=== PATIENT | male | born 1950 | race Caucasian/White ===

== ENCOUNTER 2017-06-26 08:13 | Inpatient (IN) | payer OTHER, MEDICARE ==
[2017-06-26] MEDS ORDERED: PIPERACILLIN/TAZOBACTAM 4.5 GM VIAL IV ONE (09:37)
[2017-06-26] MEDS ORDERED: VANCOMYCIN HCL INJ 1000 MG VIAL IV ONE (09:37)
[2017-06-26] MEDS ORDERED: HYDROMORPHONE HCL INJ/PF 2 MG/ML AMPULE IV ONE ×2 (09:39→13:07)
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
[2017-06-26] MEDS: NORMAL SALINE 1000 ML 1,000 ML IV PRN ×2 (10:21→11:10)
[2017-06-26 10:22] LABS: VENOUS BLOOD BASE EXCESS 4.2 mmol/L; VENOUS BLOOD HCO3 29.4 mmol/L (20-32); VENOUS BLOOD PCO2 46.8 mmHg (35-63); VENOUS BLOOD PH 7.42 (7.30-7.42)
[2017-06-26 10:26] LABS: INTERNATIONAL RATION (INR) 1.16; PROTHROMBIN TIME 15.5 SEC (11.4-15.4)
[2017-06-26 10:28] LABS: HEMATOCRIT 30.5 % (37.9-51.0); HEMOGLOBIN 10.5 g/dL (13.5-17.0); MEAN CORPUSCULAR HEMOGLOBIN 34.8 pg (27.0-33.4); MEAN CORPUSCULAR HGB CONC 34.4 g/dL (32.0-36.0); MEAN CORPUSCULAR VOLUME 101 fl (80-97); PLATELET COUNT 174 10^3/uL (150-450); RED BLOOD COUNT 3.02 10^6/uL (4.35-5.55); RED CELL DISTRIBUTION WIDTH 13.6 % (11.5-14.0); WHITE BLOOD COUNT 6.8 10^3/uL (4.0-10.5)
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
[2017-06-26] MEDS ORDERED: CLINDAMYCIN 600 MG/D5W RTU 600 MG/50 ML RTUPB IV ONE (10:39)
[2017-06-26 10:44] LABS: ALANINE AMINOTRANSFERASE 50 U/L (21-72); ALBUMIN 3.1 g/dL (3.5-5.0); ALKALINE PHOSPHATASE 81 U/L (38-126); ANION GAP 8 (5-19); ASPARTATE AMINO TRANSFERASE 85 U/L (17-59); BILIRUBIN,DIRECT 1.4 mg/dL (0.0-0.4); BILIRUBIN,TOTAL 4.6 mg/dL (0.2-1.3); BLOOD UREA NITROGEN 15 mg/dL (7-20); CALCIUM 8.3 mg/dL (8.4-10.2); CARBON DIOXIDE 26 mmol/L (22-30); CHLORIDE 96 mmol/L (98-107); GLUCOSE 104 mg/dL (75-110); POTASSIUM 4.3 mmol/L (3.6-5.0); SODIUM 130.3 mmol/L (137-145)
[2017-06-26 10:53] LABS: ABSOLUTE MONOCYTES # (MANUAL) 0.8 10^3/uL (0.1-1.4); ABSOLUTE NEUTROPHILS# (MANUAL) 4.9 10^3/uL (1.7-8.2); BAND NEUTROPHILS % (MANUAL) 1 % (3-5); BASOPHILS % (MANUAL) 1 % (0-2); EOSINOPHILS % (MANUAL) 0 % (0-6); LYMPHOCYTES % (MANUAL) 15 % (13-45); METAMYELOCYTES % (MANUAL) 2 % (0); MONOCYTES % (MANUAL) 12 % (3-13); SEGMENTED NEUTROPHILS % (MAN) 69 % (42-78); TOTAL CELLS COUNTED 100
[2017-06-26 10:54] LABS: OVALOCYTES SLIGHT; PLATELET COMMENT ADEQUATE; POIKILOCYTOSIS SLIGHT; POLYCHROMASIA SLIGHT
--- NOTE | 2017-06-26 11:18 | RADIOLOGY REPORT (SQ) ---
EXAM DESCRIPTION: CHEST PA/LAT COMPLETED DATE/TIME: 06/26/2017 10:59 am REASON FOR STUDY: post op infection COMPARISON: Chest films 09/24/2009, 12/19/2013, 02/10/2015 EXAM PARAMETERS: NUMBER OF VIEWS: two views TECHNIQUE: Digital Frontal and Lateral radiographic views of the chest acquired. RADIATION DOSE: NA LIMITATIONS: none FINDINGS: LUNGS AND PLEURA: No opacities, masses or pneumothorax. No pleural effusion. MEDIASTINUM AND HILAR STRUCTURES: No masses or contour abnormalities. HEART AND VASCULAR STRUCTURES: Heart normal size. No evidence for failure. BONES: No acute findings. HARDWARE: None in the chest. OTHER: No other significant finding. IMPRESSION: NO SIGNIFICANT RADIOGRAPHIC FINDING IN THE CHEST. TECHNICAL DOCUMENTATION: JOB ID: [id number] [employer]- All Rights Reserved
--- NOTE | 2017-06-26 11:20 | RADIOLOGY REPORT (SQ) ---
EXAM DESCRIPTION: KNEE LEFT 2 VIEWS COMPLETED DATE/TIME: 06/26/2017 10:59 am REASON FOR STUDY: left knee redness COMPARISON: None. NUMBER OF VIEWS: Two views. TECHNIQUE: AP and lateral radiographic images acquired of the left knee. LIMITATIONS: None. FINDINGS: MINERALIZATION: Normal. BONES: Post total knee replacement. Hardware in good alignment. No fracture. JOINT: Huge suprapatellar knee joint effusion with air bubbles worrisome for infection. SOFT TISSUES: There is prepatellar bursa fluid, with a large prepatellar effusion. Diffuse subcutane ous edema around the left knee OTHER: No other significant finding. IMPRESSION: Large suprapatellar knee joint effusion and large prepatellar bursa collection worrisome for infection. Post left total knee replacement, hardware in good alignment TECHNICAL DOCUMENTATION: JOB ID: [id number] [employer]- All Rights Reserved
[2017-06-26 11:42] LABS: APPEARANCE,URINE SLIGHTLY-CLOUDY; BILIRUBIN,URINE NEGATIVE (NEGATIVE); COLOR,URINE AMBER; GLUCOSE, URINE NEGATIVE (NEGATIVE); KETONES,URINE NEGATIVE (NEGATIVE); LEUKOCYTE ESTERASE,URINE NEGATIVE (NEGATIVE); NITRITE,URINE NEGATIVE (NEGATIVE); PROTEIN,URINE NEGATIVE (NEGATIVE); URINE SPECIFIC GRAVITY 1.029
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
--- NOTE | 2017-06-26 14:42 | RADIOLOGY REPORT (SQ) ---
EXAM DESCRIPTION: U/S ABDOMEN LIMITED W/O DOP COMPLETED DATE/TIME: 06/26/2017 2:13 pm REASON FOR STUDY: elevated LFTs COMPARISON: None. TECHNIQUE: Dynamic and static grayscale images acquired of the abdomen and recorded on PACS. Additio nal selected color Doppler and spectral images recorded. LIMITATIONS: Study was limited somewhat due to overlying bowel gas. FINDINGS: PANCREAS: The pancreas was incompletely visualized due to overlying bowel gas. Visualized portions of the pancreatic head showed no pancreatic masses. LIVER: There is solid-appearing mass in the right lobe of the liver with heterogeneous echogenicity m easuring 2.9 x 3.6 x 3.[address] cm in diameters. Abdominal CT scan with IV contrast may be of value for fur ther evaluation LIVER VASCULATURE: Normal blood flow is identified in the portal vein. GALLBLADDER: No stones. Normal wall thickness. No pericholecystic fluid. ULTRASOUND-DETECTED VINES'S SIGN: Negative. INTRAHEPATIC DUCTS AND COMMON DUCT: No dilated intrahepatic bile ducts are identified. The common bi le duct is at the upper limits of normal in size. INFERIOR VENA CAVA: Normal flow. AORTA: Abdominal aorta was incompletely visualized due to overlying bowel gas. Visualized portions o f the abdominal aorta showed no abdominal aortic aneurysm RIGHT KIDNEY: 10.6 cm in length P. Normal echogenicity. A hypoechoic mass is identified measuring 2 .9 x 2.5 x 3.2 cm in diameters. Again CT may be of value for further evaluation. No hydronephrosis. No calcifications. PERITONEAL AND RIGHT PLEURAL SPACE: No ascites or effusions. OTHER: No other significant findings. IMPRESSION: Hepatic and renal mass lesions as noted above. Abdominal CT scan with IV contrast may b e of value for further evaluation. Other findings as noted above TECHNICAL DOCUMENTATION: JOB ID: [id number] [employer]- All Rights Reserved
[2017-06-26] MEDS ORDERED: ONDANSETRON 4 MG TAB.RAPDIS SL PRN (15:05)
[2017-06-26] MEDS ORDERED: TRANEXAMIC ACID INJ/PF 1,000 MG/10 ML SDV IV PRN (15:05)
[2017-06-26] MEDS: RINGERS SOLUTION,LACTATED 1,000 ML IV PRN (15:29)
[2017-06-26 15:57] LABS: HEMATOCRIT 27.2 % (37.9-51.0); HEMOGLOBIN 9.4 g/dL (13.5-17.0); MEAN CORPUSCULAR HEMOGLOBIN 34.6 pg (27.0-33.4); MEAN CORPUSCULAR HGB CONC 34.5 g/dL (32.0-36.0); MEAN CORPUSCULAR VOLUME 101 fl (80-97); PLATELET COUNT 140 10^3/uL (150-450); RED CELL DISTRIBUTION WIDTH 13.2 % (11.5-14.0)
[2017-06-26 16:10] LABS: INTERNATIONAL RATION (INR) 1.21; PROTHROMBIN TIME 16.1 SEC (11.4-15.4)
[2017-06-26 16:11] LABS: PARTIAL THROMBOPLASTIN TIME 37.5 SEC (23.5-35.8)
[2017-06-26 16:20] LABS: ANION GAP 5 (5-19); BLOOD UREA NITROGEN 13 mg/dL (7-20); C-REACTIVE PROTEIN 27.8 mg/L (<10.0); CALCIUM 7.8 mg/dL (8.4-10.2); CARBON DIOXIDE 28 mmol/L (22-30); CHLORIDE 99 mmol/L (98-107); GLUCOSE 92 mg/dL (75-110); POTASSIUM 3.8 mmol/L (3.6-5.0); SODIUM 132.4 mmol/L (137-145)
[2017-06-26 16:33] LABS: ERYTHROCYTE SEDIMENTATION RATE 72 mm/hr (0-20)
--- NOTE | 2017-06-26 16:33 | XCELERA REPORT ---
[address] [address] Lower Extremity Venous Evaluation Name: BOUCHRA COUGHLIN Age: 67 yrs Gender: Male : 1950 Patient Status: Inpatient Patient Location: [place] [address]^A Study Date: 06/26/2017 11:43 AM Procedure: Color flow and duplex imaging of the veins of the left lower extremity as well as the right Common Femoral vein. Reason For Study: left lower extremity post op Ordering Physician: KELLY BOBBY Performed By: Sonali Cantor Right Sided Venous Evaluation The right common femoral vein is fully compressible. Spontaneous and phasic flow is present in the right common femoral vein. Left Sided Venous Evaluation Normal vessel filling wall to wall, compression and augmentation as well as Colour flow down to the infrageniculate veins. Interpretation Summary No duplex evidence of DVT or obstruction in the left lower extremity nor in the right Common Femoral vein. : KELLY BOBBY > Mainor Powell
[2017-06-26] MEDS: RIFAMPIN 300 MG CAPSULE PO SCH (18:03)
[2017-06-26] MEDS: OXYCODONE HCL IR 5 MG TABLET PO PRN (18:03)
[2017-06-26] MEDS: VANCOMYCIN HCL 1,250 MG in DEXTROSE 5%-WATER 250 ML IV SCH (18:03)
--- NOTE | 2017-06-26 22:38 | EKG REPORT ---
SEVERITY:- NORMAL ECG - SINUS RHYTHM : Confirmed by: Janna Arrington 26-Jun-2017 22:38:29
[2017-06-27] MEDS: RINGERS SOLUTION,LACTATED 1,000 ML IV PRN ×2 (00:58→16:26)
[2017-06-27] MEDS: VANCOMYCIN HCL 1,250 MG in DEXTROSE 5%-WATER 250 ML IV SCH ×3 (01:31→18:02)
[2017-06-27] MEDS: RIFAMPIN 300 MG CAPSULE PO SCH ×3 (05:38→22:20)
[2017-06-27] MEDS ORDERED: POLYMYXIN B SULFATE INJ 500000 UNIT VIAL ONE (07:36)
[2017-06-27] MEDS ORDERED: THROMBIN (BOVINE) TOPICAL 20000 UNIT VIAL ONE (07:36)
[2017-06-27] MEDS ORDERED: THROMBIN (BOVINE) 5000 UNIT EPITAXIS KIT ONE (07:36)
[2017-06-27] MEDS ORDERED: BACITRACIN INJ 50,000 UNIT VIAL ONE (07:37)
[2017-06-27] MEDS ORDERED: BUPIVACAINE INJ/PF LIPOSOME/PF 266 MG/20 ML SDV ONE (07:37)
[2017-06-27] MEDS ORDERED: LIDOCAINE 2% INJ-PF (20 MG/ML) 10 ML AMPUL ONE (08:24)
[2017-06-27] MEDS ORDERED: MIDAZOLAM 2 MG/2 ML INJ ONE (08:24)
[2017-06-27] MEDS ORDERED: PROPOFOL INJ 200 MG/20 ML VIAL IV ONE (08:24)
[2017-06-27] MEDS ORDERED: ONDANSETRON HCL INJ/PF 4 MG/2 ML SDV ONE (08:24)
[2017-06-27] MEDS ORDERED: ACETAMINOPHEN 100 ML IV ONE (08:24)
[2017-06-27] MEDS ORDERED: FENTANYL CITRATE INJ/PF 100 MCG/2 ML AMPUL ONE (08:24)
[2017-06-27] MEDS ORDERED: TRANEXAMIC ACID INJ/PF 1,000 MG/10 ML SDV IV ONE ×3 (08:37→14:00)
[2017-06-27] MEDS ORDERED: MORPHINE SULFATE 10 MG/ML INJ IV PRN (09:15)
[2017-06-27] MEDS ORDERED: FENTANYL CITRATE INJ/PF 100 MCG/2 ML AMPUL IV PRN ×3 (09:15)
[2017-06-27] MEDS ORDERED: ONDANSETRON HCL INJ/PF 4 MG/2 ML SDV IV PRN ×3 (09:15→12:19)
[2017-06-27] MEDS ORDERED: OXYCODONE-ACETAMINOPHEN 5-325 MG TABLET PO PRN ×2 (09:15)
[2017-06-27] MEDS ORDERED: PROMETHAZINE HCL INJ 25 MG/1 ML VIAL IV PRN ×2 (09:15)
[2017-06-27] MEDS ORDERED: DIPHENHYDRAMINE HCL 50 MG/ML VIAL IV PRN (09:15)
[2017-06-27] MEDS ORDERED: MEPERIDINE HCL/PF INJ 25 MG/1 ML DISP.SYRIN IV PRN (09:15)
--- NOTE | 2017-06-27 10:01 | Operative Report ---
Operative Report DATE OF SURGERY: 06/27/17 PREOPERATIVE DIAGNOSIS: Infected left total knee arthroplasty OPERATION: Irrigation debridement left knee exchange of polyethylene tibial component SURGEON: ANN KUHN ANESTHESIA: Spinal TISSUE REMOVED OR ALTERED: Cultures 2 to microbiology. implant to CSS ESTIMATED BLOOD LOSS: 100 PROCEDURE: With the patient supine position the operative table left lower extremities prepped and draped in a sterile fashion. The previous incision was median parapatellar and closed with what appears to be a black nylon suture. These are removed uneventfully and the superficial layer opened. Cultures are taken at the superficial level of a large hematoma. The subsequent retinacular layers also median parapatellar approach and appears to be closed with a combination of PDS and Ethibond sutures. These are removed meticulously. The underlying knee joint is cultured. It is then irrigated with 3 L normal saline standard bacitracin. The knee is flexed and the tibial polyethylene is removed. The wound is again irrigated with 3 L normal saline containing bacitracin and meticulous debridement of all synovial tissue. Lastly a new 12 x 5 TJO tibial spacer was inserted and secured with a screw. The wound was again debrided and irrigated with 3 L normal saline containing bacitracin. The wound is then closed using PDS on the retinacular layer and Prolene on the superficial layer. A sterile compressive dressing is applied and the patient's return to the PACU in satisfactory condition.
[2017-06-27] MEDS ORDERED: OXYCODONE HCL IR 5 MG TABLET PO PRN ×2 (10:06→12:18)
[2017-06-27] MEDS: OXYCODONE HCL IR 5 MG TABLET PO PRN (12:06)
[2017-06-27] MEDS ORDERED: RINGERS SOLUTION,LACTATED 1,000 ML IV PRN (12:14)
[2017-06-27] MEDS ORDERED: SIMETHICONE 80 MG TAB.CHEW PO PRN (12:52)
--- NOTE | 2017-06-27 14:41 | RADIOLOGY REPORT (SQ) ---
EXAM DESCRIPTION: PICC INSERTION; FLUORO/CV PLACEMENT; U/S GUIDE FOR VASCULAR ACCESS COMPLETED DATE/TIME: 06/27/2017 2:17 pm REASON FOR STUDY: IV MEDS; IV ACCESS COMPARISON: Two-view chest 06/26/2017 FLUOROSCOPY TIME: 29 seconds AP digital chest radiograph and 1 ultrasound images saved to PACS. TECHNIQUE: Fluoroscopic and ultrasound guided PICC placement. LIMITATIONS: None. PROCEDURE: After written consent and assessment were obtained, the patient was brought into the fluo roscopy room and place supine on the table. Ultrasound was used on the patient's left arm for PICC a ccess. The left arm was prepped and draped in a sterile fashion along with the ultrasound probe. The entry site was anesthetized with 1% lidocaine. A 21 gauge 7 cm needle was advanced through the skin a nd into the basilic vein under live ultrasound guidance. An ultrasound image was saved to PACS confi rming access site. A .018 guide wire was then inserted through the needle and into the venous system . The needle was the removed and an 11 blade scalpel was used to make a 1cm skin incision. A 5 fr pe el-away sheath was advanced over the wire and into the venous system. A measurement was then made usi ng the existing wire and live fluoroscopic guidance. The wire was then removed and the trimmed. The P ICC was advanced through the peel-away sheath and into the venous system. The peel-away sheath was re moved and the catheter was adhered to the patients arm with a stat lock. The catheter was then aspira toribio and flushed and a sterile bandage was placed over the access site. A fluoroscopic spot image was saved to PACS confirming the catheter tip within the superior vena cava. IMPRESSION: SUCCESSFUL PLACEMENT OF A 5 FR DUAL LUMEN 39 CM PICC IN THE LEFT BASILIC VEIN. COMMENT: Patient medication list reviewed: Yes- Quality ID# [id number]:Eligible professional attests to doc umenting in the medical record they obtained, updated, or reviewed the patient's current medications. . Quality ID 145: Final reports for procedures using fluoroscopy that document radiation exposure cyndie jesus, or exposure time and number of fluorographic images (if radiation exposure indices are not avail able) Quality ID #76: The patient was prepped and draped using maximum sterile barrier technique including cap, mask, sterile gown, sterile gloves, a large sterile sheet, hand hygiene, and 2% Chlorhexidine fo r cutaneous antisepsis. When ultrasound is used, sterile ultrasound techniques are followed requiring sterile gel and sterile probes. TECHNICAL DOCUMENTATION: JOB ID: [id number] [employer]- All Rights Reserved
[2017-06-27] MEDS ORDERED: HYDROMORPHONE HCL INJ/PF 2 MG/ML AMPULE ONE (15:02)
[2017-06-27] MEDS ORDERED: RIFAMPIN 300 MG CAPSULE PO SCH (18:00)
[2017-06-27 18:12] LABS: VANCOMYCIN,TROUGH 11.6 ug/mL (5.0-20.0)
[2017-06-27] MEDS: HYDROMORPHONE HCL INJ/PF 2 MG/ML AMPULE IV PRN (20:22)
[2017-06-27] MEDS ORDERED: VANCOMYCIN HCL 1,000 MG in DEXTROSE 5%-WATER 250 ML IV SCH (22:00)
[2017-06-27] MEDS: NORMAL SALINE 10 ML SDV (SCHEDULED) IV SCH (22:21)
[2017-06-28] MEDS: VANCOMYCIN HCL 1,250 MG in DEXTROSE 5%-WATER 250 ML IV SCH ×3 (01:13→17:04)
[2017-06-28] MEDS: HYDROMORPHONE HCL INJ/PF 2 MG/ML AMPULE IV PRN ×5 (01:13→23:56)
[2017-06-28] MEDS: RIFAMPIN 300 MG CAPSULE PO SCH ×3 (06:46→22:29)
[2017-06-28 07:24] LABS: HEMATOCRIT 27.4 % (37.9-51.0); HEMOGLOBIN 9.4 g/dL (13.5-17.0); MEAN CORPUSCULAR HEMOGLOBIN 34.7 pg (27.0-33.4); MEAN CORPUSCULAR HGB CONC 34.4 g/dL (32.0-36.0); MEAN CORPUSCULAR VOLUME 101 fl (80-97); PLATELET COUNT 156 10^3/uL (150-450); RED BLOOD COUNT 2.72 10^6/uL (4.35-5.55); WHITE BLOOD COUNT 6.2 10^3/uL (4.0-10.5)
[2017-06-28 07:41] LABS: ANION GAP 7 (5-19); BLOOD UREA NITROGEN 7 mg/dL (7-20); CALCIUM 8.2 mg/dL (8.4-10.2); CARBON DIOXIDE 27 mmol/L (22-30); CHLORIDE 98 mmol/L (98-107); GLUCOSE 106 mg/dL (75-110); POTASSIUM 4.3 mmol/L (3.6-5.0)
--- NOTE | 2017-06-28 07:42 | PDOC PROGRESS REPORT ---
Subjective Progress Note for:: 06/28/17 Reason For Visit: INFECTED OF PROSTHETIC KNEE JOINT,CELLULITIS 67-year-old white male postop day 8 from left knee arthroplasty at the [facility] and postop day 1 from an I&D for surgical site infection. Patient complaining of thigh pain which is similar to what he had immediately postop after the knee arthroplasty. Physical Exam Vital Signs: Temp Pulse Resp BP Pulse Ox 37.1 C 75 18 118/59 L 97 06/28/17 04:22 06/28/17 04:22 06/28/17 04:22 06/28/17 04:22 06/28/17 00:25 Intake & Output 06/27/17 06/28/17 06/29/17 06:59 06:59 06:59 Intake Total 9260 Output Total 275 7600 Balance -275 1660 Weight 97.6 kg General appearance: PRESENT: mild distress Head exam: PRESENT: normocephalic Respiratory exam: PRESENT: unlabored Cardiovascular exam: PRESENT: RRR Vascular exam: PRESENT: normal capillary refill GI/Abdominal exam: PRESENT: soft Rectal exam: PRESENT: deferred Extremities exam: PRESENT: other - Left lower extremity immobilized in a compressive wrap. From what can be seen of the underlying OpSite dressing is clean dry and intact. There is some swelling about the foot. The amount of erythema and induration in the lower extremities dramatically improve compared to his initial presentation. The femoral nerve block sites which have been weeping serous fluid are now dry. Neurological exam: PRESENT: alert, awake, oriented to person, oriented to place , oriented to time, oriented to situation. ABSENT: motor sensory deficit Psychiatric exam: PRESENT: appropriate affect, normal mood. ABSENT: homicidal ideation, suicidal ideation Skin exam: PRESENT: dry, intact, warm. ABSENT: cyanosis, rash Results Laboratory Results: 06/28/17 06:52 06/27/17 06/28/17 17:43 06:52 WBC 6.2 RBC 2.72 L Hgb 9.4 L Hct 27.4 L MCV 101 H MCH 34.7 H MCHC 34.4 RDW 14.0 Plt Count 156 Creatinine 0.54 Est GFR ( Amer) > 60 Est GFR (Non-Af Amer) > 60 Impressions: Chest X-Ray 06/26/17 09:38 IMPRESSION: NO SIGNIFICANT RADIOGRAPHIC FINDING IN THE CHEST. Knee X-Ray 06/26/17 10:28 IMPRESSION: Large suprapatellar knee joint effusion and large prepatellar bursa collection worrisome for infection. Post left total knee replacement, hardware in good alignment Abdomen Ultrasound 06/26/17 11:46 IMPRESSION: Hepatic and renal mass lesions as noted above. Abdominal CT scan with IV contrast may be of value for further evaluation. Other findings as noted above Guidance Fluoroscopy 06/27/17 00:00 IMPRESSION: SUCCESSFUL PLACEMENT OF A 5 FR DUAL LUMEN 39 CM PICC IN THE LEFT BASILIC VEIN. Interventional Vascular Procedure 06/27/17 00:00 IMPRESSION: SUCCESSFUL PLACEMENT OF A 5 FR DUAL LUMEN 39 CM PICC IN THE LEFT BASILIC VEIN. PICC Line Insertion 06/27/17 00:00 IMPRESSION: SUCCESSFUL PLACEMENT OF A 5 FR DUAL LUMEN 39 CM PICC IN THE LEFT BASILIC VEIN. Status: Imported from PACS Assessment & Plan - Diagnosis (1) Infection of prosthetic knee joint Qualifiers: Encounter type: initial encounter Qualified Code(s): T84.59XA - Infection and inflammatory reaction due to other internal joint prosthesis, initial encounter; Z96.659 - Presence of unspecified artificial knee joint; Z96.659 - Presence of unspecified artificial knee joint Is this a current diagnosis for this admission?: Yes Plan: 67-year-old white male postop day 1 status post I&D of the left knee arthroplasty complicated by surgical site infection. Cultures remain no growth so far. Clinical improvement is evident. Anticipate the need for 6 weeks of IV antibiotic therapy. At this point unless cultures are positive we will continue with rifampin and vancomycin. Social work is consulted for arranging for ongoing antibiotic administration. - Time Time Spent with patient: 15-24 minutes Anticipated discharge: Home with Homehealth Within: within 24 hours
[2017-06-28] MEDS: NORMAL SALINE 10 ML SDV (SCHEDULED) IV SCH ×2 (09:33→22:30)
[2017-06-28] MEDS ORDERED: VANCOMYCIN HCL 1,000 MG in DEXTROSE 5%-WATER 250 ML IV SCH (10:00)
[2017-06-28] MEDS: RINGERS SOLUTION,LACTATED 1,000 ML IV PRN (20:22)
[2017-06-29] MEDS: VANCOMYCIN HCL 1,250 MG in DEXTROSE 5%-WATER 250 ML IV SCH ×3 (02:21→17:24)
[2017-06-29] MEDS: RINGERS SOLUTION,LACTATED 1,000 ML IV PRN ×3 (04:37→22:37)
--- NOTE | 2017-06-29 08:33 | PDOC PROGRESS REPORT ---
Subjective Progress Note for:: 06/29/17 Reason For Visit: INFECTED OF PROSTHETIC KNEE JOINT,CELLULITIS 67-year-old white male postop day 2 from I&D of a left periprosthetic knee infection. Patient complaining of constipation. Physical Exam Vital Signs: Temp Pulse Resp BP Pulse Ox 36.8 C 73 16 115/66 98 06/29/17 07:32 06/29/17 07:32 06/29/17 07:32 06/29/17 07:32 06/29/17 07:32 Intake & Output 06/28/17 06/29/17 06/30/17 06:59 06:59 06:59 Intake Total 9260 2670 1825 Output Total 7600 700 Balance 1660 1970 1825 Weight 101.9 kg General appearance: PRESENT: mild distress Head exam: PRESENT: normocephalic Respiratory exam: PRESENT: unlabored Cardiovascular exam: PRESENT: RRR Pulses: PRESENT: +1 pedal pulses bilateral Vascular exam: PRESENT: normal capillary refill GI/Abdominal exam: PRESENT: soft Rectal exam: PRESENT: deferred Extremities exam: PRESENT: other - Left lower extremity dressing clean dry and intact. Considerable reduction in the induration and erythema about the left lower extremity. Femoral nerve block injection sites are dry. Psychiatric exam: PRESENT: agitated, appropriate affect, normal mood. ABSENT: homicidal ideation, suicidal ideation Skin exam: PRESENT: dry, intact, warm. ABSENT: cyanosis, rash Results Laboratory Results: 06/28/17 06:52 06/28/17 06:52 Impressions: Chest X-Ray 06/26/17 09:38 IMPRESSION: NO SIGNIFICANT RADIOGRAPHIC FINDING IN THE CHEST. Knee X-Ray 06/26/17 10:28 IMPRESSION: Large suprapatellar knee joint effusion and large prepatellar bursa collection worrisome for infection. Post left total knee replacement, hardware in good alignment Abdomen Ultrasound 06/26/17 11:46 IMPRESSION: Hepatic and renal mass lesions as noted above. Abdominal CT scan with IV contrast may be of value for further evaluation. Other findings as noted above Guidance Fluoroscopy 06/27/17 00:00 IMPRESSION: SUCCESSFUL PLACEMENT OF A 5 FR DUAL LUMEN 39 CM PICC IN THE LEFT BASILIC VEIN. Interventional Vascular Procedure 06/27/17 00:00 IMPRESSION: SUCCESSFUL PLACEMENT OF A 5 FR DUAL LUMEN 39 CM PICC IN THE LEFT BASILIC VEIN. PICC Line Insertion 06/27/17 00:00 IMPRESSION: SUCCESSFUL PLACEMENT OF A 5 FR DUAL LUMEN 39 CM PICC IN THE LEFT BASILIC VEIN. Status: Imported from PACS Assessment & Plan - Diagnosis (1) Infection of prosthetic knee joint Qualifiers: Encounter type: initial encounter Qualified Code(s): T84.59XA - Infection and inflammatory reaction due to other internal joint prosthesis, initial encounter; Z96.659 - Presence of unspecified artificial knee joint; Z96.659 - Presence of unspecified artificial knee joint Is this a current diagnosis for this admission?: Yes Plan: Mobilization with physical therapy. Patient can be discharged home when arrangements have been made for ongoing IV antibiotic therapy with home health nursing. (2) Constipation Is this a current diagnosis for this admission?: Yes Plan: Patient was on Colace preop. Colace is been reordered as well as Dulcolax suppositories and mag citrate if needed. - Time Time Spent with patient: 15-24 minutes Anticipated discharge: Home with Homehealth Within: within 24 hours
[2017-06-29] MEDS ORDERED: HYDROMORPHONE HCL INJ/PF 2 MG/ML AMPULE ONE (08:35)
[2017-06-29] MEDS: NORMAL SALINE 10 ML SDV (AFTER EACH USE) IV PRN (08:42)
[2017-06-29] MEDS: HYDROMORPHONE HCL INJ/PF 2 MG/ML AMPULE IV PRN ×2 (10:52→13:30)
[2017-06-29] MEDS: NORMAL SALINE 10 ML SDV (SCHEDULED) IV SCH ×2 (10:52→22:36)
[2017-06-29] MEDS: RIFAMPIN 300 MG CAPSULE PO SCH (11:02)
[2017-06-29] MEDS ORDERED: HYDROMORPHONE HCL INJ/PF 2 MG/ML AMPULE IV PRN (13:51)
[2017-06-29] MEDS ORDERED: BISACODYL 10 MG SUPP.RECT PR PRN (13:53)
[2017-06-29] MEDS ORDERED: MAGNESIUM CITRATE 296 ML BOTTLE PO PRN (13:54)
[2017-06-29] MEDS ORDERED: IBUPROFEN 800 MG in NORMAL SALINE 250 ML IV SCH (14:00)
[2017-06-29] MEDS: DOCUSATE SODIUM 100 MG CAPSULE PO SCH (17:23)
[2017-06-29] MEDS: OXYCODONE HCL IR 5 MG TABLET PO PRN (17:28)
[2017-06-30] MEDS: RIFAMPIN 300 MG CAPSULE PO SCH ×3 (00:12→21:52)
[2017-06-30] MEDS: VANCOMYCIN HCL 1,250 MG in DEXTROSE 5%-WATER 250 ML IV SCH ×3 (01:32→18:57)
[2017-06-30] MEDS: RINGERS SOLUTION,LACTATED 1,000 ML IV PRN (06:54)
--- NOTE | 2017-06-30 06:57 | PDOC DISCHARGE SUMMARY ---
General - Admit/Disc Date/PCP Admission Date/Primary Care Provider: 06/26/17 11:45 JADE GUTIERREZ, Discharge Date: 06/30/17 - Discharge Diagnosis (1) Infection of prosthetic knee joint Is this a current diagnosis for this admission?: Yes - Additional Information Resuscitation Status: Full Code Discharge Diet: As Tolerated, Regular Discharge Activity: Activity As Tolerated, No Driving, No tub bath, Walk Frequently Home Medications: Duloxetine HCl [Cymbalta 20 mg Capsule.dr] 20 mg PO QHS 06/26/17 Mv-Min/FA/Vit K/Lycop/Lut/Zeax [Ocuvite Eye + Multi Tablet] 1 tab PO BIDBS 06/26 Omeprazole 40 mg PO DAILY 06/26/17 Polyvinyl Alcohol [Liquitears 1.4% Ophth Soln 15 ml] 1 drop OU BID 06/26/17 History of Present Illness History of Present Illness: BOUCHRA COUGHLIN is a 67 year old male roughly 1 week status post total left knee arthroplasty completed at [facility]. He presented to the emergency department with increased swelling pain discoloration of the left knee as well as fever sweats and chills. As there he was diagnosed with a left knee prosthetic joint infection. He was then admitted for irrigation and drainage of left knee arthroplasty as well as polyethylene exchange. Hospital Course Hospital Course: Patient was admitted to the hospital through the emergency department to the OR where he underwent irrigation and drainage of total left knee arthroplasty and polyethylene component exchange. He underwent uncomplicated procedure in which wound cultures were taken. He was then taken to PACU in satisfactory condition. He was transferred up to the surgical floor where he was seen by physical therapy as well as nursing staff and Dr. Dye for pain control. He made great progress of physical therapy ambulating up to 250 feet independently. He had some issues with scrotal swelling in which a urinary catheter was placed. That issue has resolved and urinary catheter has been removed. He could not urinate independently. He will be discharged to home today with home health nursing, wheeled walker, bedside commode and home physical therapy. Physical Exam Vital Signs: Temp Pulse Resp BP Pulse Ox 37.1 C 81 17 121/62 95 06/30/17 03:52 06/30/17 03:52 06/30/17 03:52 06/30/17 03:52 06/30/17 03:52 Intake & Output 06/28/17 06/29/17 06/30/17 06:59 06:59 06:59 Intake Total 9260 2670 3500 Output Total 7600 700 400 Balance 1660 1970 3100 Weight 101.9 kg General appearance: PRESENT: no acute distress, well-developed, well-nourished Head exam: PRESENT: atraumatic, normocephalic Respiratory exam: PRESENT: unlabored Pulses: PRESENT: normal dorsalis pedis pul, +2 pedal pulses bilateral Vascular exam: PRESENT: normal capillary refill Additional comments: Urinary catheter has been removed and squared for a total edema is much decreased. Patient can now urinate independently. Additional comments: Patient sitting upright in hospital bed with bilateral lower extremities in full extension. Left lower extremity compression dressing is in place and is clean dry and intact. Underlying honeycomb dressings appear saturated with elisabeth blood. These are both left in place. He has brisk capillary refill to toes on bilateral lower extremities and minimal pedal edema. Sensorimotor functions are intact leg lengths are equal and distal neurovascular exam is intact. Additionally PICC line is placed on left upper extremity for IV infusion therapy for the next 6 weeks. This will be left in place. Musculoskeletal exam: PRESENT: ambulatory Additional comments: Patient has made great progress of physical therapy ambulating up to 250 feet independently. He will continue to work with home physical therapy to improve strength range of motion of left lower extremity and further ambulation. Neurological exam: PRESENT: alert, awake, oriented to person, oriented to place , oriented to time, oriented to situation, CN II-XII grossly intact. ABSENT: motor sensory deficit Psychiatric exam: PRESENT: appropriate affect, normal mood. ABSENT: homicidal ideation, suicidal ideation Skin exam: PRESENT: dry, intact, warm. ABSENT: cyanosis, rash Results Laboratory Results: 06/28/17 06:52 06/28/17 06:52 Impressions: Chest X-Ray 06/26/17 09:38 IMPRESSION: NO SIGNIFICANT RADIOGRAPHIC FINDING IN THE CHEST. Knee X-Ray 06/26/17 10:28 IMPRESSION: Large suprapatellar knee joint effusion and large prepatellar bursa collection worrisome for infection. Post left total knee replacement, hardware in good alignment Abdomen Ultrasound 06/26/17 11:46 IMPRESSION: Hepatic and renal mass lesions as noted above. Abdominal CT scan with IV contrast may be of value for further evaluation. Other findings as noted above Guidance Fluoroscopy 06/27/17 00:00 IMPRESSION: SUCCESSFUL PLACEMENT OF A 5 FR DUAL LUMEN 39 CM PICC IN THE LEFT BASILIC VEIN. Interventional Vascular Procedure 06/27/17 00:00 IMPRESSION: SUCCESSFUL PLACEMENT OF A 5 FR DUAL LUMEN 39 CM PICC IN THE LEFT BASILIC VEIN. PICC Line Insertion 06/27/17 00:00 IMPRESSION: SUCCESSFUL PLACEMENT OF A 5 FR DUAL LUMEN 39 CM PICC IN THE LEFT BASILIC VEIN. Plan Discharge Plan: 67-year-old white male 2 days status post irrigation and drainage of infected prosthesis from total left knee arthroplasty. Patient has made great progress with physical therapy ambulating up to 250 feet independently. He will continue to work with home physical therapy to improve strength range of motion of left lower extremity. He initially had issues with scrotal edema and a urinary catheter was placed. The edema has decreased and the catheter was removed and he can now urinate independently. A PICC line was placed to facilitate IV infusion therapy over the next 6 weeks of vancomycin and rifampin. This will be left in place. His wound cultures still had no growth 72 hours after surgery. However prophylactically he will remain on the IV infusion therapy for the next 6 weeks. He will be discharged home today with home health nursing, home physical therapy, wheeled walker, bedside commode. Before his discharge his compression dressing should be removed by nursing staff and honeycomb dressings that are saturated with elisabeth blood replaced. He can follow-up with [facility] for surgery and Dr. Dye 2 weeks postoperatively for reevaluation and staple removal. Time Spent: Less than 30 Minutes
[2017-06-30] MEDS: DOCUSATE SODIUM 100 MG CAPSULE PO SCH ×2 (10:10→18:57)
[2017-06-30] MEDS: NORMAL SALINE 10 ML SDV (SCHEDULED) IV SCH ×2 (10:10→21:52)
[2017-06-30] MEDS: NORMAL SALINE 10 ML SDV (AFTER EACH USE) IV PRN (21:51)
[2017-07-01] MEDS: VANCOMYCIN HCL 1,250 MG in DEXTROSE 5%-WATER 250 ML IV SCH ×3 (02:27→18:28)
[2017-07-01] MEDS: NORMAL SALINE 10 ML SDV (AFTER EACH USE) IV PRN ×2 (04:23→20:22)
--- NOTE | 2017-07-01 06:54 | PDOC PROGRESS REPORT ---
Subjective Progress Note for:: 07/01/17 Subjective:: 67-year-old white male status post irrigation and drainage for infected total left knee arthroplasty. Patient sitting upright in hospital bed with bilateral lower extremities in full extension. Patient reports he is more comfortable and is pleased that his scrotal edema is continuing to decrease. He notes that he would like to stay in the hospital 1 more day as his bowels have been consistently loose. Reason For Visit: INFECTED OF PROSTHETIC KNEE JOINT,CELLULITIS Physical Exam Vital Signs: Temp Pulse Resp BP Pulse Ox 36.9 C 65 12 117/72 99 07/01/17 04:00 07/01/17 04:00 07/01/17 04:00 07/01/17 04:00 07/01/17 04:00 Intake & Output 06/29/17 06/30/17 07/01/17 06:59 06:59 06:59 Intake Total 2670 3500 1150 Output Total 442 478 4533 Balance 1970 3100 -525 Weight 101.9 kg General appearance: PRESENT: no acute distress, well-developed, well-nourished Head exam: PRESENT: atraumatic, normocephalic Respiratory exam: PRESENT: unlabored Pulses: PRESENT: normal dorsalis pedis pul, +2 pedal pulses bilateral Vascular exam: PRESENT: normal capillary refill Additional comments: Adult diaper worn by patient. Extremities exam: PRESENT: pedal edema Additional comments: Patient sitting upright in hospital bed with bilateral lower extremities in full extension. The left lower extremity is mildly edematous and erythematous around OpSite dressings. His honeycomb dressings are clean dry and intact. These are left in place. He is nontender to palpation. He has brisk capillary refill to toes on bilateral lower extremities leg lengths are equal and distal neurovascular exam is intact. Musculoskeletal exam: PRESENT: ambulatory Additional comments: Patient makes good progress with physical therapy ambulating up to 250 feet independently. He will continue to work with PT throughout his stay in the hospital. He will then work with home physical therapy. Neurological exam: PRESENT: alert, awake, oriented to person, oriented to place , oriented to time, oriented to situation, CN II-XII grossly intact. ABSENT: motor sensory deficit Psychiatric exam: PRESENT: appropriate affect, normal mood. ABSENT: homicidal ideation, suicidal ideation Skin exam: PRESENT: dry, intact, warm. ABSENT: cyanosis, rash Results Laboratory Results: 06/28/17 06:52 06/28/17 06:52 Impressions: Chest X-Ray 06/26/17 09:38 IMPRESSION: NO SIGNIFICANT RADIOGRAPHIC FINDING IN THE CHEST. Knee X-Ray 06/26/17 10:28 IMPRESSION: Large suprapatellar knee joint effusion and large prepatellar bursa collection worrisome for infection. Post left total knee replacement, hardware in good alignment Abdomen Ultrasound 06/26/17 11:46 IMPRESSION: Hepatic and renal mass lesions as noted above. Abdominal CT scan with IV contrast may be of value for further evaluation. Other findings as noted above Guidance Fluoroscopy 06/27/17 00:00 IMPRESSION: SUCCESSFUL PLACEMENT OF A 5 FR DUAL LUMEN 39 CM PICC IN THE LEFT BASILIC VEIN. Interventional Vascular Procedure 06/27/17 00:00 IMPRESSION: SUCCESSFUL PLACEMENT OF A 5 FR DUAL LUMEN 39 CM PICC IN THE LEFT BASILIC VEIN. PICC Line Insertion 06/27/17 00:00 IMPRESSION: SUCCESSFUL PLACEMENT OF A 5 FR DUAL LUMEN 39 CM PICC IN THE LEFT BASILIC VEIN. Assessment & Plan - Diagnosis (1) Infection of prosthetic knee joint Qualifiers: Encounter type: initial encounter Qualified Code(s): T84.59XA - Infection and inflammatory reaction due to other internal joint prosthesis, initial encounter; Z96.659 - Presence of unspecified artificial knee joint; Z96.659 - Presence of unspecified artificial knee joint Is this a current diagnosis for this admission?: Yes - Plan Summary Plan Summary: 59-year-old white male status post incision irrigation and drainage of infected total left knee arthroplasty. Patient has made great progress with physical therapy ambulating up to 250 feet independently. He will continue to work with PT throughout his stay in the hospital. He has been worked up for discharge and all orders are placed. Due to patient's scrotal edema and now incidence of loose stools he will remain in the hospital an additional day and C. difficile cultures have been ordered to assess for etiology of loose stools. Pending these results patient will then likely be discharged to his home. Nursing staff will change OpSite dressing later today.
[2017-07-01] MEDS: DOCUSATE SODIUM 100 MG CAPSULE PO SCH ×2 (10:07→18:19)
[2017-07-01] MEDS: NORMAL SALINE 10 ML SDV (SCHEDULED) IV SCH (10:07)
[2017-07-01] MEDS: RIFAMPIN 300 MG CAPSULE PO SCH (10:07)
[2017-07-01] MEDS: OXYCODONE HCL IR 5 MG TABLET PO PRN (11:23)
[2017-07-02] MEDS: NORMAL SALINE 10 ML SDV (SCHEDULED) IV SCH ×3 (00:03→21:14)
[2017-07-02] MEDS: RIFAMPIN 300 MG CAPSULE PO SCH ×3 (00:03→22:31)
[2017-07-02] MEDS: VANCOMYCIN HCL 1,250 MG in DEXTROSE 5%-WATER 250 ML IV SCH ×3 (02:18→17:54)
[2017-07-02] MEDS ORDERED: METRONIDAZOLE 500 MG/NS RTU 0 ML IV ONE (06:00)
--- NOTE | 2017-07-02 09:02 | PDOC PROGRESS REPORT ---
Subjective Progress Note for:: 07/02/17 Reason For Visit: INFECTED OF PROSTHETIC KNEE JOINT,CELLULITIS 37-year-old white male now postop day 4 from an I&D of a left knee replacement surgical site infection. All cultures remain negative to date. Patient complaining about scrotal swelling, urinary urgency and subsequent incontinence. Patient feels with his current functional level he is not comfortable going home since he lives alone. Physical Exam Vital Signs: Temp Pulse Resp BP Pulse Ox 36.7 C 75 18 142/78 H 99 07/02/17 04:09 07/02/17 04:09 07/02/17 04:09 07/02/17 04:09 07/02/17 04:09 Intake & Output 07/01/17 07/02/17 07/03/17 06:59 06:59 06:59 Intake Total 1150 250 Output Total 1675 Balance -525 250 Weight 103.1 kg General appearance: PRESENT: no acute distress Head exam: PRESENT: normocephalic Respiratory exam: PRESENT: unlabored Cardiovascular exam: PRESENT: RRR Pulses: PRESENT: +1 pedal pulses bilateral Vascular exam: PRESENT: normal capillary refill GI/Abdominal exam: PRESENT: soft Rectal exam: PRESENT: deferred Gentrourinary exam: PRESENT: other - Patient with significant hemorrhagic scrotal swelling Extremities exam: PRESENT: other - Left lower extremity has decreasing induration and erythema. There is a small amount of drainage at the distal aspect of the knee incision. Distal neurovascular examination is intact. Neurological exam: PRESENT: alert, awake, oriented to person, oriented to place , oriented to time, oriented to situation. ABSENT: motor sensory deficit Psychiatric exam: PRESENT: appropriate affect, normal mood. ABSENT: homicidal ideation, suicidal ideation Skin exam: PRESENT: dry, intact, warm. ABSENT: cyanosis, rash Results Laboratory Results: 06/28/17 06:52 06/28/17 06:52 06/27/17 09:14 Knee - Left Gram Stain - Final 06/27/17 09:14 Knee - Left Wound Culture - Final NO AEROBIC OR ANAEROBIC ORGANISMS RECOVERED 06/27/17 09:12 Knee - Left Gram Stain - Final 06/27/17 09:12 Knee - Left Wound Culture - Final NO AEROBIC OR ANAEROBIC ORGANISMS RECOVERED Impressions: Chest X-Ray 06/26/17 09:38 IMPRESSION: NO SIGNIFICANT RADIOGRAPHIC FINDING IN THE CHEST. Knee X-Ray 06/26/17 10:28 IMPRESSION: Large suprapatellar knee joint effusion and large prepatellar bursa collection worrisome for infection. Post left total knee replacement, hardware in good alignment Abdomen Ultrasound 06/26/17 11:46 IMPRESSION: Hepatic and renal mass lesions as noted above. Abdominal CT scan with IV contrast may be of value for further evaluation. Other findings as noted above Guidance Fluoroscopy 06/27/17 00:00 IMPRESSION: SUCCESSFUL PLACEMENT OF A 5 FR DUAL LUMEN 39 CM PICC IN THE LEFT BASILIC VEIN. Interventional Vascular Procedure 06/27/17 00:00 IMPRESSION: SUCCESSFUL PLACEMENT OF A 5 FR DUAL LUMEN 39 CM PICC IN THE LEFT BASILIC VEIN. PICC Line Insertion 06/27/17 00:00 IMPRESSION: SUCCESSFUL PLACEMENT OF A 5 FR DUAL LUMEN 39 CM PICC IN THE LEFT BASILIC VEIN. Status: Imported from PACS Assessment & Plan - Diagnosis (1) Infection of prosthetic knee joint Qualifiers: Encounter type: initial encounter Qualified Code(s): T84.59XA - Infection and inflammatory reaction due to other internal joint prosthesis, initial encounter; Z96.659 - Presence of unspecified artificial knee joint; Z96.659 - Presence of unspecified artificial knee joint Is this a current diagnosis for this admission?: Yes Plan: Patient doing well on empiric antibiotics. (2) Constipation Is this a current diagnosis for this admission?: Yes Plan: Resolved (3) Scrotal swelling Is this a current diagnosis for this admission?: Yes Plan: The etiology of the patient's scrotal swelling is unclear at this point. There may be a superimposed urinary urgency on top of this. I requested urine analysis to evaluate potential urinary tract infection as a cause of his urgency. Otherwise continuing to elevate the scrotum on towels and ice packs are appropriate. - Time Time Spent with patient: 15-24 minutes Anticipated discharge: SNF Within: Other - Patient now feels that he is unable to return home with his current level of function. Is requesting assisted facility placement. Discharge planning will be consulted.
[2017-07-02] MEDS: DOCUSATE SODIUM 100 MG CAPSULE PO SCH ×2 (09:33→18:07)
[2017-07-02 11:38] LABS: APPEARANCE,URINE CLEAR; BILIRUBIN,URINE NEGATIVE (NEGATIVE); COLOR,URINE YELLOW; GLUCOSE, URINE NEGATIVE (NEGATIVE); KETONES,URINE NEGATIVE (NEGATIVE); LEUKOCYTE ESTERASE,URINE NEGATIVE (NEGATIVE); NITRITE,URINE NEGATIVE (NEGATIVE); PROTEIN,URINE NEGATIVE (NEGATIVE); URINE SPECIFIC GRAVITY 1.006; UROBILINOGEN,URINE NEGATIVE mg/dL (<2.0)
[2017-07-02 18:14] LABS: VANCOMYCIN,TROUGH 19.6 ug/mL (5.0-20.0)
[2017-07-02] MEDS ORDERED: DULOXETINE HCL 20 MG CAPSULE.DR PO SCH (22:00)
[2017-07-03] MEDS: VANCOMYCIN HCL 1,000 MG in DEXTROSE 5%-WATER 250 ML IV SCH ×3 (02:30→18:48)
[2017-07-03] MEDS: NORMAL SALINE 10 ML SDV (AFTER EACH USE) IV PRN (05:48)
[2017-07-03] MEDS: LANSOPRAZOLE 30 MG TAB.RAP.DR PO SCH (05:48)
--- NOTE | 2017-07-03 06:57 | PDOC PROGRESS REPORT ---
Subjective Progress Note for:: 07/03/17 Reason For Visit: INFECTED OF PROSTHETIC KNEE JOINT,CELLULITIS 67-year-old white male status post left knee arthroplasty during [facility] with subsequent postop surgical site infection that underwent an I&D here. Physical Exam Vital Signs: Temp Pulse Resp BP Pulse Ox 36.7 C 71 20 138/69 H 97 07/03/17 03:49 07/03/17 03:49 07/03/17 03:49 07/03/17 03:49 07/03/17 03:49 Intake & Output 07/01/17 07/02/17 07/03/17 06:59 06:59 06:59 Intake Total 1150 250 Output Total 1675 700 Balance -525 250 -700 Weight 103.1 kg 101.2 kg General appearance: PRESENT: no acute distress Head exam: PRESENT: normocephalic Respiratory exam: PRESENT: unlabored Cardiovascular exam: PRESENT: RRR Pulses: PRESENT: +1 pedal pulses bilateral Vascular exam: PRESENT: normal capillary refill Gentrourinary exam: PRESENT: other - Scrotal swelling seems to be decreased Extremities exam: PRESENT: other - Left knee dressing with some scant drainage distally. Neurological exam: PRESENT: alert, awake, oriented to person, oriented to place , oriented to time, oriented to situation. ABSENT: motor sensory deficit Psychiatric exam: PRESENT: appropriate affect, normal mood. ABSENT: homicidal ideation, suicidal ideation Skin exam: PRESENT: dry, intact, warm. ABSENT: cyanosis, rash Results Laboratory Results: 06/28/17 06:52 07/02/17 17:38 07/02/17 07/02/17 11:00 17:38 Creatinine 0.57 Est GFR ( Amer) > 60 Est GFR (Non-Af Amer) > 60 Urine Color YELLOW Urine Appearance CLEAR Urine pH 7.0 Ur Specific Piercy 1.006 Urine Protein NEGATIVE Urine Glucose (UA) NEGATIVE Urine Ketones NEGATIVE Urine Blood NEGATIVE Urine Nitrite NEGATIVE Ur Leukocyte Esterase NEGATIVE Urine WBC (Auto) 1 Urine RBC (Auto) 0 Impressions: Chest X-Ray 06/26/17 09:38 IMPRESSION: NO SIGNIFICANT RADIOGRAPHIC FINDING IN THE CHEST. Knee X-Ray 06/26/17 10:28 IMPRESSION: Large suprapatellar knee joint effusion and large prepatellar bursa collection worrisome for infection. Post left total knee replacement, hardware in good alignment Abdomen Ultrasound 06/26/17 11:46 IMPRESSION: Hepatic and renal mass lesions as noted above. Abdominal CT scan with IV contrast may be of value for further evaluation. Other findings as noted above Guidance Fluoroscopy 06/27/17 00:00 IMPRESSION: SUCCESSFUL PLACEMENT OF A 5 FR DUAL LUMEN 39 CM PICC IN THE LEFT BASILIC VEIN. Interventional Vascular Procedure 06/27/17 00:00 IMPRESSION: SUCCESSFUL PLACEMENT OF A 5 FR DUAL LUMEN 39 CM PICC IN THE LEFT BASILIC VEIN. PICC Line Insertion 06/27/17 00:00 IMPRESSION: SUCCESSFUL PLACEMENT OF A 5 FR DUAL LUMEN 39 CM PICC IN THE LEFT BASILIC VEIN. Status: Imported from PACS Assessment & Plan - Diagnosis (1) Infection of prosthetic knee joint Qualifiers: Encounter type: initial encounter Qualified Code(s): T84.59XA - Infection and inflammatory reaction due to other internal joint prosthesis, initial encounter; Z96.659 - Presence of unspecified artificial knee joint; Z96.659 - Presence of unspecified artificial knee joint Is this a current diagnosis for this admission?: Yes Plan: Cultures remain no growth so far. Patient empirically on vancomycin with rifampin. Wound appears to be healing uneventfully and the swelling and induration in the thigh are considerably decreased from the time of his presentation. Time will be for continued antibiotic administration for 6 weeks. (2) Constipation Is this a current diagnosis for this admission?: Yes (3) Scrotal swelling Is this a current diagnosis for this admission?: Yes - Plan Summary Plan Summary: Patient requesting [facility] facility placement [facility] through [facility]. Appropriate mechanisms have been initiated but this will probably be a lengthy process.
[2017-07-03] MEDS ORDERED: [UNRECOGNIZED DRUG - OTHER] PO SCH (08:00)
[2017-07-03] MEDS ORDERED: ONDANSETRON HCL INJ/PF 4 MG/2 ML SDV IV PRN (09:00)
[2017-07-03] MEDS: DOCUSATE SODIUM 100 MG CAPSULE PO SCH ×2 (11:02→18:32)
[2017-07-03] MEDS: NORMAL SALINE 10 ML SDV (SCHEDULED) IV SCH ×2 (11:03→22:10)
[2017-07-03] MEDS: POLYVINYL ALCOHOL 1.4% OPH SOLN 15 ML OU SCH ×2 (11:09→18:48)
[2017-07-03] MEDS: RIFAMPIN 300 MG CAPSULE PO SCH ×2 (11:10→22:07)
[2017-07-04] MEDS: VANCOMYCIN HCL 1,000 MG in DEXTROSE 5%-WATER 250 ML IV SCH ×3 (01:52→18:24)
[2017-07-04] MEDS: NORMAL SALINE 10 ML SDV (AFTER EACH USE) IV PRN ×2 (04:12→21:01)
--- NOTE | 2017-07-04 06:45 | PDOC PROGRESS REPORT ---
Subjective Progress Note for:: 07/04/17 Reason For Visit: INFECTED OF PROSTHETIC KNEE JOINT,CELLULITIS 67-year-old white male postop day 6 from I&D of a left knee arthroplasty surgical site infection. All intraoperative cultures have remained no growth. Patient is empirically on vancomycin and rifampin. He has remained afebrile. Physical Exam Vital Signs: Temp Pulse Resp BP Pulse Ox 37.1 C 68 16 131/64 H 97 07/04/17 04:00 07/04/17 04:00 07/04/17 04:00 07/04/17 04:00 07/04/17 04:00 Intake & Output 07/02/17 07/03/17 07/04/17 06:59 06:59 06:59 Intake Total 250 Output Total 2200 Balance 250 -2200 Weight 103.1 kg 101.2 kg General appearance: PRESENT: no acute distress Head exam: PRESENT: normocephalic Respiratory exam: PRESENT: unlabored Cardiovascular exam: PRESENT: RRR Pulses: PRESENT: +1 pedal pulses bilateral Vascular exam: PRESENT: normal capillary refill GI/Abdominal exam: PRESENT: soft Rectal exam: PRESENT: deferred Gentrourinary exam: PRESENT: scrotal swelling - Scrotal cyst swelling is decreasing. Extremities exam: PRESENT: other - Left knee incision with some drainage at the inferior aspect. Dressing is changed today. Wound is well approximated. Neurological exam: PRESENT: alert, awake, oriented to person, oriented to place , oriented to time, oriented to situation. ABSENT: motor sensory deficit Psychiatric exam: PRESENT: appropriate affect, normal mood. ABSENT: homicidal ideation, suicidal ideation Skin exam: PRESENT: dry, intact, warm. ABSENT: cyanosis, rash Results Laboratory Results: 06/28/17 06:52 07/02/17 17:38 Impressions: Chest X-Ray 06/26/17 09:38 IMPRESSION: NO SIGNIFICANT RADIOGRAPHIC FINDING IN THE CHEST. Knee X-Ray 06/26/17 10:28 IMPRESSION: Large suprapatellar knee joint effusion and large prepatellar bursa collection worrisome for infection. Post left total knee replacement, hardware in good alignment Abdomen Ultrasound 06/26/17 11:46 IMPRESSION: Hepatic and renal mass lesions as noted above. Abdominal CT scan with IV contrast may be of value for further evaluation. Other findings as noted above Guidance Fluoroscopy 06/27/17 00:00 IMPRESSION: SUCCESSFUL PLACEMENT OF A 5 FR DUAL LUMEN 39 CM PICC IN THE LEFT BASILIC VEIN. Interventional Vascular Procedure 06/27/17 00:00 IMPRESSION: SUCCESSFUL PLACEMENT OF A 5 FR DUAL LUMEN 39 CM PICC IN THE LEFT BASILIC VEIN. PICC Line Insertion 06/27/17 00:00 IMPRESSION: SUCCESSFUL PLACEMENT OF A 5 FR DUAL LUMEN 39 CM PICC IN THE LEFT BASILIC VEIN. Status: Imported from PACS Assessment & Plan - Diagnosis (1) Infection of prosthetic knee joint Qualifiers: Encounter type: initial encounter Qualified Code(s): T84.59XA - Infection and inflammatory reaction due to other internal joint prosthesis, initial encounter; Z96.659 - Presence of unspecified artificial knee joint; Z96.659 - Presence of unspecified artificial knee joint Is this a current diagnosis for this admission?: Yes Plan: Patient with improving function. Awaiting longterm facility placement and [facility] authorization. (2) Constipation Is this a current diagnosis for this admission?: Yes (3) Scrotal swelling Is this a current diagnosis for this admission?: Yes
[2017-07-04] MEDS: DOCUSATE SODIUM 100 MG CAPSULE PO SCH ×2 (10:58→19:31)
[2017-07-04] MEDS: RIFAMPIN 300 MG CAPSULE PO SCH (10:58)
[2017-07-04] MEDS: POLYVINYL ALCOHOL 1.4% OPH SOLN 15 ML OU SCH ×2 (10:59→18:28)
[2017-07-04] MEDS: NORMAL SALINE 10 ML SDV (SCHEDULED) IV SCH ×2 (10:59→21:00)
[2017-07-04] MEDS: LANSOPRAZOLE 30 MG TAB.RAP.DR PO SCH (11:01)
[2017-07-04 11:19] LABS: VANCOMYCIN,TROUGH 18.5 ug/mL (5.0-20.0)
[2017-07-05] MEDS: VANCOMYCIN HCL 1,000 MG in DEXTROSE 5%-WATER 250 ML IV SCH ×3 (02:36→17:09)
[2017-07-05] MEDS: LANSOPRAZOLE 30 MG TAB.RAP.DR PO SCH (05:10)
[2017-07-05] MEDS: NORMAL SALINE 10 ML SDV (AFTER EACH USE) IV PRN (05:10)
[2017-07-05] MEDS: DOCUSATE SODIUM 100 MG CAPSULE PO SCH ×2 (09:18→17:09)
[2017-07-05] MEDS: NORMAL SALINE 10 ML SDV (SCHEDULED) IV SCH ×2 (09:19→21:46)
[2017-07-05] MEDS: POLYVINYL ALCOHOL 1.4% OPH SOLN 15 ML OU SCH ×2 (09:19→17:09)
--- NOTE | 2017-07-05 14:23 | PDOC PROGRESS REPORT ---
Subjective Progress Note for:: 07/05/17 Subjective:: Patient lying in bed comfortably. No issues overnight. Denies fever chills or sweats. Has been undergoing physical therapy without issues. Reason For Visit: INFECTED OF PROSTHETIC KNEE JOINT,CELLULITIS Physical Exam Vital Signs: Temp Pulse Resp BP Pulse Ox 98.4 F 64 20 122/72 97 07/05/17 11:21 07/05/17 11:21 07/05/17 11:21 07/05/17 11:21 07/05/17 11:21 Intake & Output 07/04/17 07/05/17 07/06/17 06:59 06:59 06:59 Intake Total 1740 240 Output Total 2075 1900 1400 Balance -2075 -160 -1160 Musculoskeletal exam: PRESENT: other - Left knee: Dressing change today. No evidence of erythema there is ecchymosis throughout the extremity with thigh swelling. Serosanguineous drainage on the dressing. Mild effusion. No calf tenderness. Results Laboratory Results: 06/28/17 06:52 07/04/17 10:15 Impressions: Chest X-Ray 06/26/17 09:38 IMPRESSION: NO SIGNIFICANT RADIOGRAPHIC FINDING IN THE CHEST. Knee X-Ray 06/26/17 10:28 IMPRESSION: Large suprapatellar knee joint effusion and large prepatellar bursa collection worrisome for infection. Post left total knee replacement, hardware in good alignment Abdomen Ultrasound 06/26/17 11:46 IMPRESSION: Hepatic and renal mass lesions as noted above. Abdominal CT scan with IV contrast may be of value for further evaluation. Other findings as noted above Guidance Fluoroscopy 06/27/17 00:00 IMPRESSION: SUCCESSFUL PLACEMENT OF A 5 FR DUAL LUMEN 39 CM PICC IN THE LEFT BASILIC VEIN. Interventional Vascular Procedure 06/27/17 00:00 IMPRESSION: SUCCESSFUL PLACEMENT OF A 5 FR DUAL LUMEN 39 CM PICC IN THE LEFT BASILIC VEIN. PICC Line Insertion 06/27/17 00:00 IMPRESSION: SUCCESSFUL PLACEMENT OF A 5 FR DUAL LUMEN 39 CM PICC IN THE LEFT BASILIC VEIN. Assessment & Plan - Diagnosis (1) Infection of prosthetic knee joint Qualifiers: Encounter type: initial encounter Qualified Code(s): T84.59XA - Infection and inflammatory reaction due to other internal joint prosthesis, initial encounter; Z96.659 - Presence of unspecified artificial knee joint; Z96.659 - Presence of unspecified artificial knee joint Is this a current diagnosis for this admission?: Yes Plan: Patient status post irrigation and debridement left total knee arthroplasty. Patient currently receiving IV vancomycin despite negative culture results. We will continue IV antibiotics given the clinical findings suggesting periprosthetic infection. He will continue physical therapy. Anticipate 6 weeks of IV antibiotics.
[2017-07-06] MEDS: VANCOMYCIN HCL 1,000 MG in DEXTROSE 5%-WATER 250 ML IV SCH ×3 (02:00→17:40)
[2017-07-06] MEDS: LANSOPRAZOLE 30 MG TAB.RAP.DR PO SCH (05:44)
[2017-07-06] MEDS: DOCUSATE SODIUM 100 MG CAPSULE PO SCH ×2 (09:35→17:40)
[2017-07-06] MEDS: NORMAL SALINE 10 ML SDV (SCHEDULED) IV SCH ×2 (09:35→22:52)
[2017-07-06] MEDS: POLYVINYL ALCOHOL 1.4% OPH SOLN 15 ML OU SCH ×2 (09:35→17:40)
[2017-07-06] MEDS: NORMAL SALINE 10 ML SDV (AFTER EACH USE) IV PRN (12:00)
--- NOTE | 2017-07-06 12:54 | PDOC PROGRESS REPORT ---
Subjective Subjective:: Patient lying in bed comfortably. No issues overnight. Denies fever chills or sweats. Has been undergoing physical therapy without issues. Reason For Visit: INFECTED OF PROSTHETIC KNEE JOINT,CELLULITIS Physical Exam Vital Signs: Temp Pulse Resp BP Pulse Ox 98.2 F 82 12 132/72 H 96 07/06/17 08:38 07/06/17 08:38 07/06/17 08:38 07/06/17 08:38 07/06/17 08:38 Intake & Output 07/05/17 07/06/17 07/07/17 06:59 06:59 06:59 Intake Total 1740 1241 Output Total 1900 2390 Balance -160 -1149 Musculoskeletal exam: PRESENT: other - Left knee: Dressing clean/dry/intact no erythema or drainage. Moderate swelling. No calf tenderness. Intact plantar flexion/dorsiflexion. Results Laboratory Results: 06/28/17 06:52 07/04/17 10:15 Impressions: Chest X-Ray 06/26/17 09:38 IMPRESSION: NO SIGNIFICANT RADIOGRAPHIC FINDING IN THE CHEST. Knee X-Ray 06/26/17 10:28 IMPRESSION: Large suprapatellar knee joint effusion and large prepatellar bursa collection worrisome for infection. Post left total knee replacement, hardware in good alignment Abdomen Ultrasound 06/26/17 11:46 IMPRESSION: Hepatic and renal mass lesions as noted above. Abdominal CT scan with IV contrast may be of value for further evaluation. Other findings as noted above Guidance Fluoroscopy 06/27/17 00:00 IMPRESSION: SUCCESSFUL PLACEMENT OF A 5 FR DUAL LUMEN 39 CM PICC IN THE LEFT BASILIC VEIN. Interventional Vascular Procedure 06/27/17 00:00 IMPRESSION: SUCCESSFUL PLACEMENT OF A 5 FR DUAL LUMEN 39 CM PICC IN THE LEFT BASILIC VEIN. PICC Line Insertion 06/27/17 00:00 IMPRESSION: SUCCESSFUL PLACEMENT OF A 5 FR DUAL LUMEN 39 CM PICC IN THE LEFT BASILIC VEIN. Assessment & Plan - Diagnosis (1) Infection of prosthetic knee joint Qualifiers: Encounter type: initial encounter Qualified Code(s): T84.59XA - Infection and inflammatory reaction due to other internal joint prosthesis, initial encounter; Z96.659 - Presence of unspecified artificial knee joint; Z96.659 - Presence of unspecified artificial knee joint Is this a current diagnosis for this admission?: Yes Plan: Patient status post irrigation and debridement left total knee arthroplasty. Patient currently receiving IV vancomycin despite negative culture results. We will continue IV antibiotics given the clinical findings suggesting periprosthetic infection. Continue physical therapy have encouraged range of motion various points throughout the day.
[2017-07-07] MEDS: VANCOMYCIN HCL 1,000 MG in DEXTROSE 5%-WATER 250 ML IV SCH ×3 (02:27→18:20)
[2017-07-07] MEDS: LANSOPRAZOLE 30 MG TAB.RAP.DR PO SCH (05:55)
[2017-07-07] MEDS: POLYVINYL ALCOHOL 1.4% OPH SOLN 15 ML OU SCH ×2 (11:02→18:20)
[2017-07-07] MEDS: DOCUSATE SODIUM 100 MG CAPSULE PO SCH ×2 (11:03→18:20)
[2017-07-07] MEDS: NORMAL SALINE 10 ML SDV (SCHEDULED) IV SCH ×2 (12:52→21:09)
[2017-07-08] MEDS: VANCOMYCIN HCL 1,000 MG in DEXTROSE 5%-WATER 250 ML IV SCH ×3 (01:20→18:48)
[2017-07-08] MEDS: NORMAL SALINE 10 ML SDV (AFTER EACH USE) IV PRN (03:11)
[2017-07-08] MEDS: LANSOPRAZOLE 30 MG TAB.RAP.DR PO SCH (05:45)
--- NOTE | 2017-07-08 07:07 | PDOC DISCHARGE SUMMARY ---
General - Admit/Disc Date/PCP Admission Date/Primary Care Provider: 06/26/17 11:45 JADE BRENDA, DO Discharge Date: 07/08/17 - Discharge Diagnosis (1) Infection of prosthetic knee joint Is this a current diagnosis for this admission?: Yes (2) Constipation Is this a current diagnosis for this admission?: Yes (3) Scrotal swelling Is this a current diagnosis for this admission?: Yes - Additional Information Resuscitation Status: Full Code Discharge Diet: As Tolerated, Regular Discharge Activity: Activity As Tolerated, No Driving, No tub bath, Walk Frequently Home Medications: Duloxetine HCl [Cymbalta 20 mg Capsule.dr] 20 mg PO QHS 06/26/17 Mv-Min/FA/Vit K/Lycop/Lut/Zeax [Ocuvite Eye + Multi Tablet] 1 tab PO BIDBS 06/26 Omeprazole 40 mg PO DAILY 06/26/17 Polyvinyl Alcohol [Liquitears 1.4% Ophth Soln 15 ml] 1 drop OU BID 06/26/17 History of Present Illness History of Present Illness: The previous discharge summary dated 06/30/2017 Hospital Course Hospital Course: The patient's hospitalization was prolonged because he is waiting for [facility] facility placement based on [facility] benefits. These did not occur. The patient is now ready for discharge home with home health long term health physical therapy. Patient will need 6 weeks of IV antibiotic therapy Physical Exam Vital Signs: Temp Pulse Resp BP Pulse Ox 36.9 C 56 L 18 130/66 H 100 07/08/17 04:41 07/08/17 04:41 07/08/17 04:41 07/08/17 04:41 07/08/17 04:41 Intake & Output 07/07/17 07/08/17 07/09/17 06:59 06:59 06:59 Intake Total 750 1830 Output Total 3725 3105 Balance -2975 -1275 Weight 91.3 kg General appearance: PRESENT: no acute distress Head exam: PRESENT: normocephalic Respiratory exam: PRESENT: unlabored Cardiovascular exam: PRESENT: RRR Pulses: PRESENT: +1 pedal pulses bilateral Extremities exam: PRESENT: other - Lower extremity dressings clean dry and intact. Induration and erythema have resolved. Neurological exam: PRESENT: alert, awake, oriented to person, oriented to place , oriented to time, oriented to situation. ABSENT: motor sensory deficit Psychiatric exam: PRESENT: appropriate affect, normal mood. ABSENT: homicidal ideation, suicidal ideation Skin exam: PRESENT: dry, intact, warm. ABSENT: cyanosis, rash Results Laboratory Results: 06/28/17 06:52 07/04/17 10:15 Impressions: Chest X-Ray 06/26/17 09:38 IMPRESSION: NO SIGNIFICANT RADIOGRAPHIC FINDING IN THE CHEST. Knee X-Ray 06/26/17 10:28 IMPRESSION: Large suprapatellar knee joint effusion and large prepatellar bursa collection worrisome for infection. Post left total knee replacement, hardware in good alignment Abdomen Ultrasound 06/26/17 11:46 IMPRESSION: Hepatic and renal mass lesions as noted above. Abdominal CT scan with IV contrast may be of value for further evaluation. Other findings as noted above Guidance Fluoroscopy 06/27/17 00:00 IMPRESSION: SUCCESSFUL PLACEMENT OF A 5 FR DUAL LUMEN 39 CM PICC IN THE LEFT BASILIC VEIN. Interventional Vascular Procedure 06/27/17 00:00 IMPRESSION: SUCCESSFUL PLACEMENT OF A 5 FR DUAL LUMEN 39 CM PICC IN THE LEFT BASILIC VEIN. PICC Line Insertion 06/27/17 00:00 IMPRESSION: SUCCESSFUL PLACEMENT OF A 5 FR DUAL LUMEN 39 CM PICC IN THE LEFT BASILIC VEIN. Status: Imported from PACS Qualifiers - * PATEINT BEING DISCHARGED WITH ANY OF THE FOLLOWING DIAGNOSIS?: No VTE patient discharged on overlapping Therapy?: Yes Plan Discharge Plan: Patient will be discharged home with home health long term health physical therapy, wheeled walker, bedside commode. Patient requires 6 weeks of IV vancomycin therapy. Follow-up with Dr. Dye and [facility] for surgery in 2 weeks for suture removal.
[2017-07-08] MEDS: POLYVINYL ALCOHOL 1.4% OPH SOLN 15 ML OU SCH ×2 (10:11→18:48)
[2017-07-08] MEDS: NORMAL SALINE 10 ML SDV (SCHEDULED) IV SCH ×2 (10:11→21:07)
[2017-07-08] MEDS: DOCUSATE SODIUM 100 MG CAPSULE PO SCH ×2 (10:11→18:48)
[2017-07-09] MEDS: VANCOMYCIN HCL 1,000 MG in DEXTROSE 5%-WATER 250 ML IV SCH ×3 (01:26→18:57)
[2017-07-09] MEDS: LANSOPRAZOLE 30 MG TAB.RAP.DR PO SCH (05:18)
[2017-07-09] MEDS: DOCUSATE SODIUM 100 MG CAPSULE PO SCH ×2 (09:41→18:57)
[2017-07-09] MEDS: POLYVINYL ALCOHOL 1.4% OPH SOLN 15 ML OU SCH ×2 (09:41→18:57)
[2017-07-09 11:28] LABS: VANCOMYCIN,TROUGH 17.7 ug/mL (5.0-20.0)
[2017-07-09] MEDS: NORMAL SALINE 10 ML SDV (SCHEDULED) IV SCH ×2 (11:45→20:43)
[2017-07-09] MEDS: NORMAL SALINE 10 ML SDV (AFTER EACH USE) IV PRN (20:43)
[2017-07-10] MEDS: LANSOPRAZOLE 30 MG TAB.RAP.DR PO SCH (06:27)
--- NOTE | 2017-07-10 06:56 | PDOC PROGRESS REPORT ---
Subjective Progress Note for:: 07/10/17 Reason For Visit: INFECTED OF PROSTHETIC KNEE JOINT,CELLULITIS 67-year-old white male status post I&D of the left knee for a periprosthetic infection now awaiting arrangements for home health via the [facility] system to facilitate ongoing IV antibiotic administration Physical Exam Vital Signs: Temp Pulse Resp BP Pulse Ox 36.7 C 59 L 18 134/63 H 97 07/10/17 04:08 07/10/17 04:08 07/10/17 04:08 07/10/17 04:08 07/10/17 04:08 Intake & Output 07/08/17 07/09/17 07/10/17 06:59 06:59 06:59 Intake Total 1830 1360 1280 Output Total 3107 0425 4000 Balance -9939 -160 -3689 Weight 91.3 kg 89.4 kg 88.6 kg General appearance: PRESENT: no acute distress Extremities exam: PRESENT: other - Left lower extremity dressing is dry. There is minimal edema. There is no induration or erythema. Psychiatric exam: PRESENT: appropriate affect, normal mood. ABSENT: homicidal ideation, suicidal ideation Skin exam: PRESENT: dry, intact, warm. ABSENT: cyanosis, rash Results Laboratory Results: 06/28/17 06:52 07/09/17 09:40 07/09/17 09:40 Creatinine 0.68 Est GFR ( Amer) > 60 Est GFR (Non-Af Amer) > 60 Impressions: Chest X-Ray 06/26/17 09:38 IMPRESSION: NO SIGNIFICANT RADIOGRAPHIC FINDING IN THE CHEST. Knee X-Ray 06/26/17 10:28 IMPRESSION: Large suprapatellar knee joint effusion and large prepatellar bursa collection worrisome for infection. Post left total knee replacement, hardware in good alignment Abdomen Ultrasound 06/26/17 11:46 IMPRESSION: Hepatic and renal mass lesions as noted above. Abdominal CT scan with IV contrast may be of value for further evaluation. Other findings as noted above Guidance Fluoroscopy 06/27/17 00:00 IMPRESSION: SUCCESSFUL PLACEMENT OF A 5 FR DUAL LUMEN 39 CM PICC IN THE LEFT BASILIC VEIN. Interventional Vascular Procedure 06/27/17 00:00 IMPRESSION: SUCCESSFUL PLACEMENT OF A 5 FR DUAL LUMEN 39 CM PICC IN THE LEFT BASILIC VEIN. PICC Line Insertion 06/27/17 00:00 IMPRESSION: SUCCESSFUL PLACEMENT OF A 5 FR DUAL LUMEN 39 CM PICC IN THE LEFT BASILIC VEIN. Status: Imported from PACS Assessment & Plan - Diagnosis (1) Infection of prosthetic knee joint Qualifiers: Encounter type: initial encounter Qualified Code(s): T84.59XA - Infection and inflammatory reaction due to other internal joint prosthesis, initial encounter; Z96.659 - Presence of unspecified artificial knee joint; Z96.659 - Presence of unspecified artificial knee joint Is this a current diagnosis for this admission?: Yes Plan: Awaiting appropriate discharge planning. Discharge order written July 08, 2017 (2) Constipation Is this a current diagnosis for this admission?: Yes (3) Scrotal swelling Is this a current diagnosis for this admission?: Yes
[2017-07-10] MEDS: POLYVINYL ALCOHOL 1.4% OPH SOLN 15 ML OU SCH (10:27)
[2017-07-10] MEDS: DOCUSATE SODIUM 100 MG CAPSULE PO SCH (10:27)
[2017-07-10] MEDS: VANCOMYCIN HCL 1,000 MG in DEXTROSE 5%-WATER 250 ML IV SCH ×2 (10:27→17:23)
[2017-07-10] MEDS: NORMAL SALINE 10 ML SDV (SCHEDULED) IV SCH (12:50)
[2017-07-10] MEDS: NORMAL SALINE 10 ML SDV (AFTER EACH USE) IV PRN (13:06)
[2017-07-10 19:39] VITALS: BP 130/66
== END 2017-07-10 20:13 | disposition home health service (06) | DRG 467 ==
LOC: ER 08:13 → EH 11:45 → 2N 14:15
PROVIDERS: ADMIT Orthopaedic Surgery; ATTEND Orthopaedic Surgery
PROC: 0SRW0JA Replacement of Left Knee Joint, Tibial Surface with Synthetic Substitute, Uncemented, Open Approach (ICD-10-PCS; 2017-06-27)
PROC: 02HV33Z Insertion of Infusion Device into Superior Vena Cava, Percutaneous Approach (ICD-10-PCS; 2017-06-27)
PROC: B5181ZA Fluoroscopy of Superior Vena Cava using Low Osmolar Contrast, Guidance (ICD-10-PCS; 2017-06-27)
PROC: B548ZZA Ultrasonography of Superior Vena Cava, Guidance (ICD-10-PCS; 2017-06-27)
PROC: 0SPW0JZ Removal of Synthetic Substitute from Left Knee Joint, Tibial Surface, Open Approach (ICD-10-PCS; principal; 2017-06-27 09:10)
DX: T84.54XA Infection and inflammatory reaction due to internal left knee prosthesis, initial encounter (principal); L03.116 Cellulitis of left lower limb; J44.9 Chronic obstructive pulmonary disease, unspecified; Z96.652 Presence of left artificial knee joint; K59.00 Constipation, unspecified
CPT/HCPCS: 01360; 36415; 36569; 71046; 76705; 76937; 77001; 80048; 80053; 80202; 81001; 82565; 82803; 83605; 85025; 85027; 85610; 85652; 85730; 86140; 86850; 86900; 86901; 87040; 87070; 87075; 87086; 87205; 87493; 93005; 93010; 93971; 96365; 96367; 96368; 96375; 99285; C9290; G8978-GP; G8979-GP; J0131; J1170; J1642; J2250; J2405; J2543; J2704; J3010; J3370; J3490; J7030; J7060; J7120

== ENCOUNTER 2019-03-25 09:43 | Emergency (ER) | payer OTHER ==
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
[2019-03-25 10:47] LABS: HEMOGLOBIN 15.2 g/dL (13.5-17.0); MEAN CORPUSCULAR HEMOGLOBIN 35.1 pg (27.0-33.4); MEAN CORPUSCULAR HGB CONC 34.6 g/dL (32.0-36.0); MEAN CORPUSCULAR VOLUME 101 fl (80-97); PLATELET COUNT 103 10^3/uL (150-450); RED BLOOD COUNT 4.34 10^6/uL (4.35-5.55); RED CELL DISTRIBUTION WIDTH 13.6 % (11.5-14.0)
[2019-03-25 11:02] LABS: ALBUMIN 3.8 g/dL (3.5-5.0); ALKALINE PHOSPHATASE 122 U/L (38-126); ANION GAP 11 (5-19); ASPARTATE AMINO TRANSFERASE 89 U/L (17-59); BILIRUBIN,DIRECT 0.9 mg/dL (0.0-0.4); BILIRUBIN,TOTAL 3.6 mg/dL (0.2-1.3); BLOOD UREA NITROGEN 10 mg/dL (7-20); CALCIUM 9.6 mg/dL (8.4-10.2); CARBON DIOXIDE 24 mmol/L (22-30); CHLORIDE 104 mmol/L (98-107); GLUCOSE 102 mg/dL (75-110); POTASSIUM 4.3 mmol/L (3.6-5.0)
[2019-03-25 11:10] LABS: ABSOLUTE LYMPHOCYTES# (MANUAL) 0.6 10^3/uL (0.5-4.7); ABSOLUTE MONOCYTES # (MANUAL) 0.7 10^3/uL (0.1-1.4); EOSINOPHILS % (MANUAL) 1 % (0-6); LYMPHOCYTES % (MANUAL) 14 % (13-45); MONOCYTES % (MANUAL) 18 % (3-13); SEGMENTED NEUTROPHILS % (MAN) 61 % (42-78); TOTAL CELLS COUNTED 100
[2019-03-25 11:11] LABS: BASOPHILS % (MANUAL) 4 % (0-2); PLATELET COMMENT DECREASED; POLYCHROMASIA SLIGHT
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
--- NOTE | 2019-03-25 11:53 | RADIOLOGY REPORT (SQ) ---
EXAM DESCRIPTION: CT ABD/PELVIS WITH IV ONLY COMPLETED DATE/TIME: 03/25/2019 11:24 am REASON FOR STUDY: 6wks upper abd pain, HCC, failed RT embolization COMPARISON: None. TECHNIQUE: CT scan of the abdomen and pelvis performed using helical scanning technique with dynamic intravenous contrast injection. No oral contrast. Images reviewed with lung, soft tissue, and bone windows. Reconstructed coronal and sagittal MPR images reviewed. Delayed images for evaluation of the urinary system also acquired. All images stored on PACS. All CT scanners at this facility use dose modulation, iterative reconstruction, and/or weight based d osing when appropriate to reduce radiation dose to as low as reasonably achievable (ALARA). [facility]: Dose Right [facility]: CareDose [facility]: Dose Right [facility]: Teradose 4D [facility]: [employer] CONTRAST TYPE AND DOSE: contrast/concentration: Isovue 350.00 mg/ml; Total Contrast Delivered: 100.0 ml; Total Saline Delivered: 72.0 ml RENAL FUNCTION: GFR > 60. RADIATION DOSE: CT Rad equipment meets quality standard of care and radiation dose reduction techniq ues were employed. CTDIvol: 11.6 - 15.1 mGy. DLP: 1644 mGy-cm.. LIMITATIONS: None. FINDINGS: LOWER CHEST: No significant findings. No nodules or infiltrates. LIVER: Small in size with diffuse nodularity. Approximately 4 cm lesion in the right lobe which is p artially calcified possibly related to prior ablation. Portal vein is patent. SPLEEN: Normal size. No focal lesions. PANCREAS: No masses. No significant calcifications. No adjacent inflammation or peripancreatic fluid collections. Pancreatic duct not dilated. GALLBLADDER: No identified stones by CT criteria. No inflammatory changes to suggest cholecystitis. ADRENAL GLANDS: No significant masses or asymmetry. RIGHT KIDNEY AND URETER: No solid masses. No significant calcifications. No hydronephrosis or hyd roureter. LEFT KIDNEY AND URETER: No solid masses. No significant calcifications. No hydronephrosis or hydr oureter. AORTA AND VESSELS: No aneurysm. RETROPERITONEUM: No retroperitoneal adenopathy, hemorrhage or masses. BOWEL AND PERITONEAL CAVITY: Mild -moderate ascites. No obstruction. APPENDIX: Not visualized. PELVIS: Free fluid. Normal bladder. ABDOMINAL WALL: No masses. No hernias. BONES: Lower lumbar fusion. Defect left ilium likely related to bone marrow or bone graft harvest. OTHER: No other significant finding. IMPRESSION: Cirrhosis with diffuse nodularity status post chemoembolization for hepatocellular carci noma. Mild -moderate ascites. No evidence of abscess or bowel obstruction. TECHNICAL DOCUMENTATION: JOB ID: [id number] Quality ID # [id number]: Final reports with documentation of one or more dose reduction techniques (e.g., Au tomated exposure control, adjustment of the mA and/or kV according to patient size, use of iterative reconstruction technique) 2010 [employer]- All Rights Reserved Reading location - IP/workstation name: [email or web address]
[2019-03-25 14:13] VITALS: BP 148/76
[2019-03-26 10:40] LABS: PATH REVIEW PATHOLOGIST REVIEWED
== END 2019-03-25 14:00 | disposition home or self-care (01) ==
LOC: ER 09:43
DX: K70.31 Alcoholic cirrhosis of liver with ascites (principal); C22.0 Liver cell carcinoma; R11.0 Nausea; J44.9 Chronic obstructive pulmonary disease, unspecified; Z87.891 Personal history of nicotine dependence
CPT/HCPCS: 36415; 74177; 80053; 83690; 85025; 99284

== ENCOUNTER 2019-05-14 08:24 | Emergency (ER) | payer OTHER ==
[2019-05-14 10:03] LABS: HEMATOCRIT 41.1 % (37.9-51.0); HEMOGLOBIN 14.4 g/dL (13.5-17.0); MEAN CORPUSCULAR HEMOGLOBIN 35.4 pg (27.0-33.4); MEAN CORPUSCULAR HGB CONC 35.1 g/dL (32.0-36.0); MEAN CORPUSCULAR VOLUME 101 fl (80-97); PLATELET COUNT 105 10^3/uL (150-450); RED BLOOD COUNT 4.08 10^6/uL (4.35-5.55); RED CELL DISTRIBUTION WIDTH 14.4 % (11.5-14.0); WHITE BLOOD COUNT 3.7 10^3/uL (4.0-10.5)
[2019-05-14 10:12] LABS: ALBUMIN 3.6 g/dL (3.5-5.0); ALKALINE PHOSPHATASE 126 U/L (38-126); ANION GAP 9 (5-19); ASPARTATE AMINO TRANSFERASE 66 U/L (17-59); BILIRUBIN,DIRECT 0.9 mg/dL (0.0-0.4); BILIRUBIN,TOTAL 3.6 mg/dL (0.2-1.3); BLOOD UREA NITROGEN 10 mg/dL (7-20); CALCIUM 9.5 mg/dL (8.4-10.2); CARBON DIOXIDE 29 mmol/L (22-30); CHLORIDE 98 mmol/L (98-107); GLUCOSE 104 mg/dL (75-110); TOTAL PROTEIN 7.8 g/dL (6.3-8.2)
[2019-05-14 10:15] LABS: APPEARANCE,URINE SLIGHTLY-CLOUDY; BILIRUBIN,URINE NEGATIVE (NEGATIVE); GLUCOSE, URINE NEGATIVE (NEGATIVE); KETONES,URINE NEGATIVE (NEGATIVE); LEUKOCYTE ESTERASE,URINE NEGATIVE (NEGATIVE); NITRITE,URINE NEGATIVE (NEGATIVE); PROTEIN,URINE 30 mg/dL (NEGATIVE)
[2019-05-14 10:16] LABS: COLOR,URINE DARK YELLOW
[2019-05-14 10:29] LABS: ABSOLUTE LYMPHOCYTES# (MANUAL) 0.5 10^3/uL (0.5-4.7); ABSOLUTE MONOCYTES # (MANUAL) 0.6 10^3/uL (0.1-1.4); ANISOCYTOSIS SLIGHT; BASOPHILS % (MANUAL) 2 % (0-2); EOSINOPHILS % (MANUAL) 2 % (0-6); LYMPHOCYTES % (MANUAL) 14 % (13-45); MONOCYTES % (MANUAL) 17 % (3-13); SEGMENTED NEUTROPHILS % (MAN) 65 % (42-78); TOTAL CELLS COUNTED 100
[2019-05-14 10:30] LABS: PLATELET COMMENT DECREASED; POIKILOCYTOSIS SLIGHT; POLYCHROMASIA SLIGHT; TEAR DROP CELLS SLIGHT
[2019-05-14] MEDS ORDERED: MORPHINE SULFATE 10 MG/ML INJ IV ONE ×3 (12:42→20:23)
--- NOTE | 2019-05-14 13:55 | RADIOLOGY REPORT (SQ) ---
EXAM DESCRIPTION: CHEST 2 VIEWS COMPLETED DATE/TIME: 05/14/2019 1:39 pm REASON FOR STUDY: productive cough COMPARISON: AP view of the chest from 02/10/2015 EXAM PARAMETERS: NUMBER OF VIEWS: two views TECHNIQUE: PA and lateral views of the chest were obtained. RADIATION DOSE: NA LIMITATIONS: none FINDINGS: LUNGS AND PLEURA: No consolidation, pleural effusion or pneumothorax. MEDIASTINUM AND HILAR STRUCTURES: No mediastinal or hilar contour abnormality. HEART AND VASCULAR STRUCTURES: The cardiac silhouette and pulmonary vasculature are within normal lópez its. BONES: No acute findings. HARDWARE: None in the chest. OTHER: No other finding. IMPRESSION: No acute cardiopulmonary process. TECHNICAL DOCUMENTATION: JOB ID: [id number] [employer]- All Rights Reserved Reading location - IP/workstation name: [email or web address]
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
--- NOTE | 2019-05-14 14:19 | RADIOLOGY REPORT (SQ) ---
EXAM DESCRIPTION: CT ABD/PELVIS WITH IV ONLY COMPLETED DATE/TIME: 05/14/2019 1:54 pm REASON FOR STUDY: lower abd pain x 3 weeks COMPARISON: CT of the abdomen and pelvis with contrast from 03/25/2019 TECHNIQUE: CT scan of the abdomen and pelvis performed using helical scanning technique with dynamic intravenous contrast injection. No oral contrast. Images reviewed with lung, soft tissue, and bone windows. Reconstructed coronal and sagittal MPR images reviewed. Delayed images for evaluation of the urinary system also acquired. All images stored on PACS. All CT scanners at this facility use dose modulation, iterative reconstruction, and/or weight based d osing when appropriate to reduce radiation dose to as low as reasonably achievable (ALARA). [facility]: Dose Right [facility]: CareDose [facility]: Dose Right [facility]: Teradose 4D [facility]: [employer] CONTRAST TYPE AND DOSE: Contrast/concentration: Isovue 350.00 mg/ml; Total Contrast Delivered: 98.0 ml; Total Saline Delivered: 72.0 ml RENAL FUNCTION: Creatinine 0.69 milligrams/deciliter RADIATION DOSE: CT Rad equipment meets quality standard of care and radiation dose reduction techniq ues were employed. CTDIvol: 12.4 - 15.6 mGy. DLP: 1667 mGy-cm. LIMITATIONS: None. FINDINGS: LOWER CHEST: The subpleural opacity in the left lower lobe could represent a narrowing of atelectasis. There is no pleural effusion. The heart is enlarged and there is atherosclerotic calci fication of the coronary arteries. There is no pericardial effusion. LIVER: The morphology of the liver is cirrhotic. There are findings consistent with multifocal HCC w ith a dominant 5 cm lesion within segment 4b of the liver. There is eccentric thrombus within the ex trahepatic main portal vein that extends to the confluence of the superior mesenteric vein. SPLEEN: The spleen measures 13.4 cm in AP diameter. The splenic vein is occluded and there are promi nent portosystemic collaterals in the left upper quadrant. PANCREAS: No acute abnormality of the pancreas. GALLBLADDER: No abnormality that is apparent on CT. ADRENAL GLANDS: No mass or asymmetry. RIGHT KIDNEY AND URETER: Water attenuation lesion that arises from the anteromedial cortex of the upp er pole of the kidney and measures 2.5 x 2.9 cm. There is no solid mass, hydronephrosis, nephrolithi asis, hydroureter or ureterolithiasis. LEFT KIDNEY AND URETER: No solid mass, hydronephrosis, nephrolithiasis, hydroureter or ureterolithias is AORTA AND VESSELS: The abdominal aorta is nonaneurysmal. RETROPERITONEUM: No retroperitoneal adenopathy, hemorrhage or mass. BOWEL AND PERITONEAL CAVITY: There is a moderate amount of ascites. The wall of the cecum and proxim al ascending colon is circumferentially thickened. There is no evidence of bowel obstruction. There is no pneumatosis, free intraperitoneal air or portal venous gas. APPENDIX: Normal. PELVIS: The urinary bladder is normal in appearance. The prostate gland is normal in size. ABDOMINAL WALL: No masses or adenopathy. BONES: Status post transpedicular fusion and decompression at L4-5. The grade 1 anterolisthesis of L 4 relative to S5 is unchanged. There is no acute fracture. OTHER: No other finding. IMPRESSION: Cirrhosis with multifocal HCC and findings of portal hypertension including splenomegaly , the development of portosystemic collaterals, and ascites. There is nonocclusive thrombus within t he extrahepatic main portal vein. The splenic vein is occluded. Other nonemergent findings are deta iled above. TECHNICAL DOCUMENTATION: JOB ID: [id number] Quality ID # [id number]: Final reports with documentation of one or more dose reduction techniques (e.g., Au tomated exposure control, adjustment of the mA and/or kV according to patient size, use of iterative reconstruction technique) 2010 [employer]- All Rights Reserved Reading location - IP/workstation name: [email or web address]
[2019-05-14] MEDS ORDERED: ENOXAPARIN SODIUM INJ 100 MG/1 ML DISP.SYRIN SUBCUT SCH (16:45)
[2019-05-14] MEDS ORDERED: ONDANSETRON HCL INJ/PF 4 MG/2 ML SDV IV ONE (20:23)
[2019-05-14 20:58] VITALS: BP 138/77
== END 2019-05-14 20:58 ==
LOC: ER 08:24
DX: K74.60 Unspecified cirrhosis of liver (principal); R18.8 Other ascites; I81 Portal vein thrombosis; R16.1 Splenomegaly, not elsewhere classified; R10.84 Generalized abdominal pain; R10.817 Generalized abdominal tenderness; R05 Cough; J44.9 Chronic obstructive pulmonary disease, unspecified; R11.0 Nausea; R06.02 Shortness of breath; Z85.05 Personal history of malignant neoplasm of liver; Z92.3 Personal history of irradiation; Z92.21 Personal history of antineoplastic chemotherapy
CPT/HCPCS: 96376; 99285; 96372; 96374; 96375; 36415; 83605; 83690; 85025; 80053; 81001; 71046; 74177; J2270; J2405; J1650

== ENCOUNTER 2019-07-15 11:43 | Day surgery (SDC) | payer OTHER ==
[2019-07-15 12:38] LABS: HEMATOCRIT 42.7 % (37.9-51.0); HEMOGLOBIN 14.7 g/dL (13.5-17.0); MEAN CORPUSCULAR HEMOGLOBIN 34.9 pg (27.0-33.4); MEAN CORPUSCULAR HGB CONC 34.4 g/dL (32.0-36.0); MEAN CORPUSCULAR VOLUME 101 fl (80-97); PLATELET COUNT 111 10^3/uL (150-450); RED BLOOD COUNT 4.21 10^6/uL (4.35-5.55); RED CELL DISTRIBUTION WIDTH 14.3 % (11.5-14.0); WHITE BLOOD COUNT 4.2 10^3/uL (4.0-10.5)
[2019-07-15 12:46] LABS: INTERNATIONAL RATION (INR) 1.32; PROTHROMBIN TIME 16.5 SEC (11.4-15.4)
[2019-07-15 12:47] LABS: PARTIAL THROMBOPLASTIN TIME 42.4 SEC (23.5-35.8)
[2019-07-15 12:54] LABS: BLOOD UREA NITROGEN 16 mg/dL (7-20)
[2019-07-15] MEDS ORDERED: ALBUMIN HUMAN 50 GM/200 ML RTUINJ IV PRN (15:43)
--- NOTE | 2019-07-15 17:03 | RADIOLOGY REPORT (SQ) ---
EXAM DESCRIPTION: U/S ABD PARACENTESIS COMPLETED DATE/TIME: 07/15/2019 4:48 pm REASON FOR STUDY: ASCITES COMPARISON None. LIMITATIONS: None. PROCEDURE: The procedure, risks, benefits, and alternatives were discussed with the patient and the patient's family who then gave written consent. The right lower quadrant was then marked utilizing sonographic guidance and a time-out was performed to document correct marking verification. The area around the selected percutaneous access site was then prepped and draped with 2% chlorhexidi ne utilizing standard sterile technique. After that, the selected access site was infiltrated with 5 ml of 1% lidocaine. A 5 Maltese Ubyd-T-Lbecopry catheter was then introduced into the fluid-filled p eritoneal cavity and the fluid was aspirated. After the fluid was aspirated, the catheter was removed and the entry site was covered with a sterile bandage. No immediate complications were noted. Volume of Fluid: 7500 mL. Quality of the Fluid: Straw-colored. Was the fluid collected for analysis? No. Images acquired during the procedure were submitted to PACS. The patient tolerated the procedure with local anesthesia. At the end of the procedure the patient's condition was unchanged from the preprocedural baseline. Documentation of fgmw-mo-trft time the proceduralist spent monitoring the patient: 15 minutes. IMPRESSION: Successful ultrasound-guided paracentesis. COMMENT: Patient medication list reviewed: Yes- Quality ID# [id number]:Eligible professional attests to doc umenting in the medical record they obtained, updated, or reviewed the patient's current medications. TECHNICAL DOCUMENTATION: JOB ID: [id number] 2010 [employer]- All Rights Reserved Reading location - IP/workstation name: [email or web address]
[2019-07-15 17:19] VITALS: BP 121/76
== END 2019-07-15 15:35 | disposition home or self-care (01) ==
LOC: RAD 11:43
PROVIDERS: ATTEND Internal Medicine Gastroenterology
DX: R18.8 Other ascites (principal)
CPT/HCPCS: 36415; 84520; 82565; 85027; 85610; 85730; 49083; P9047

== ENCOUNTER 2019-07-29 08:12 | Day surgery (SDC) | payer OTHER ==
[2019-07-29 09:03] LABS: HEMATOCRIT 39.7 % (37.9-51.0); MEAN CORPUSCULAR HEMOGLOBIN 35.7 pg (27.0-33.4); MEAN CORPUSCULAR HGB CONC 35.3 g/dL (32.0-36.0); MEAN CORPUSCULAR VOLUME 101 fl (80-97); PLATELET COUNT 104 10^3/uL (150-450); RED BLOOD COUNT 3.93 10^6/uL (4.35-5.55); WHITE BLOOD COUNT 3.1 10^3/uL (4.0-10.5)
[2019-07-29 09:18] LABS: INTERNATIONAL RATION (INR) 1.35; PROTHROMBIN TIME 16.7 SEC (11.4-15.4)
[2019-07-29 09:19] LABS: PARTIAL THROMBOPLASTIN TIME 43.4 SEC (23.5-35.8)
[2019-07-29 09:24] LABS: BLOOD UREA NITROGEN 18 mg/dL (7-20)
[2019-07-29] MEDS ORDERED: ALBUMIN HUMAN 50 GM/200 ML RTUINJ IV PRN (12:14)
[2019-07-29 13:54] VITALS: BP 117/62
--- NOTE | 2019-07-29 13:57 | RADIOLOGY REPORT (SQ) ---
EXAM DESCRIPTION: U/S ABD PARACENTESIS COMPLETED DATE/TIME: 07/29/2019 12:47 pm REASON FOR STUDY: OTHER ASCITES R18.8 OTHER ASCITES COMPARISON: None. RADIATION DOSE: None LIMITATIONS: None. PROCEDURE: Procedure, risks, benefit, and alternative explained to patient who then gave written con sent. The right lower abdominal wall marked using ultrasound guidance. A time-out was called for co rrect marking verification. Abdomen prepped and draped using sterile technique. Local anesthesia ach ieved using 5 ml of 1% lidocaine injection. A 6fr Qfdj-H-Iiqxnonl set was introduced into the perito lazaro cavity. Fluid was drained. The catheter was removed and entry site was covered with sterile ba ndage. No immediate complications noted. Images acquired during the procedure were stored on PACS. FINDINGS: ENTRY SITE: right lower quadrant. FLUID VOLUME: 10 L FLUID ANALYSIS: Cloudy straw-colored fluid OTHER: Therapeutic only. IMPRESSION: SUCCESSFUL ULTRASOUND GUIDED PARACENTESIS. COMMENT: Patient medication list reviewed:Yes- Quality ID# [id number]:Eligible professional attests to docu menting in the medical record they obtained, updated, or reviewed the patient's current medications. TECHNICAL DOCUMENTATION: JOB ID: [id number] 2010 [employer]- All Rights Reserved Reading location - IP/workstation name: [email or web address] [id number]
== END 2019-07-29 13:47 | disposition home or self-care (01) ==
LOC: RAD 08:12
PROVIDERS: ATTEND Internal Medicine Gastroenterology
DX: R18.8 Other ascites (principal)
CPT/HCPCS: 36415; 84520; 82565; 85027; 85610; 85730; 49083; P9047

== ENCOUNTER 2019-08-12 07:37 | Day surgery (SDC) | payer OTHER ==
[2019-08-12 08:40] LABS: HEMATOCRIT 39.2 % (37.9-51.0); MEAN CORPUSCULAR HEMOGLOBIN 35.8 pg (27.0-33.4); MEAN CORPUSCULAR HGB CONC 35.7 g/dL (32.0-36.0); MEAN CORPUSCULAR VOLUME 100 fl (80-97)
[2019-08-12 08:43] LABS: INTERNATIONAL RATION (INR) 1.32; PROTHROMBIN TIME 16.4 SEC (11.4-15.4)
[2019-08-12 08:44] LABS: PARTIAL THROMBOPLASTIN TIME 41.3 SEC (23.5-35.8)
[2019-08-12 08:52] LABS: BLOOD UREA NITROGEN 14 mg/dL (7-20); POTASSIUM 4.6 mmol/L (3.6-5.0)
[2019-08-12 09:15] LABS: ABSOLUTE LYMPHOCYTES# (MANUAL) 0.4 10^3/uL (0.5-4.7); ABSOLUTE MONOCYTES # (MANUAL) 0.6 10^3/uL (0.1-1.4); BASOPHILS % (MANUAL) 1 % (0-2); EOSINOPHILS % (MANUAL) 4 % (0-6); LYMPHOCYTES % (MANUAL) 13 % (13-45); METAMYELOCYTES % (MANUAL) 1 % (0-1); MONOCYTES % (MANUAL) 19 % (3-13); SEGMENTED NEUTROPHILS % (MAN) 61 % (42-78); TOTAL CELLS COUNTED 100
[2019-08-12 09:17] LABS: ANISOCYTOSIS SLIGHT; PLATELET CLUMPS PRESENT; PLATELET COMMENT DECREASED; PLATELET COUNT 101 10^3/uL (150-450); PLATELET LARGE PRESENT; TOXIC GRANULATION SLIGHT
[2019-08-12] MEDS ORDERED: ALBUMIN HUMAN 50 GM/200 ML RTUINJ IV PRN (11:30)
[2019-08-12 12:34] VITALS: BP 127/64
--- NOTE | 2019-08-12 12:39 | RADIOLOGY REPORT (SQ) ---
EXAM DESCRIPTION: U/S ABD PARACENTESIS COMPLETED DATE/TIME: 08/12/2019 12:26 pm REASON FOR STUDY: ASCITES COMPARISON 07/29/2019 LIMITATIONS: None. PROCEDURE: After obtaining informed consent, the patient was brought to the ultrasound suite. The p rocedure was performed with the patient on a gurney. Ultrasound was used to identify a prominent poc ket of ascites in the left lower quadrant. An appropriate access site was selected. The patient was prepped and draped in usual sterile fashion. The access site was anesthetized with 10 mL 1% lidoca ine. A Ttoj-E-Mqqgbzpi needle was advanced into the fluid. After aspiration of fluid the needle, th e catheter was advanced off the needle into the fluid. A total of 8,000 mL of clear, straw-colored f luid was removed. The patient tolerated the procedure well left the department in satisfactory condit ion. IMPRESSION: Successful ultrasound-guided paracentesis COMMENT: Patient medication list reviewed: Yes- Quality ID# [id number]:Eligible professional attests to doc umenting in the medical record they obtained, updated, or reviewed the patient's current medications. TECHNICAL DOCUMENTATION: JOB ID: [id number] 2010 [employer]- All Rights Reserved Reading location - IP/workstation name: [email or web address]
== END 2019-08-12 12:30 | disposition home or self-care (01) ==
LOC: RAD 07:37
PROVIDERS: ATTEND Internal Medicine Gastroenterology
DX: R18.8 Other ascites (principal)
CPT/HCPCS: 36415; 84520; 82565; 84132; 85025; 85610; 85730; 49083; P9047

== ENCOUNTER 2019-08-24 10:32 | Day surgery (SDC) | payer OTHER ==
[2019-08-24 11:12] LABS: HEMATOCRIT 38.7 % (37.9-51.0); HEMOGLOBIN 13.7 g/dL (13.5-17.0); MEAN CORPUSCULAR HEMOGLOBIN 35.5 pg (27.0-33.4); MEAN CORPUSCULAR HGB CONC 35.2 g/dL (32.0-36.0); MEAN CORPUSCULAR VOLUME 101 fl (80-97); PLATELET COUNT 108 10^3/uL (150-450); RED BLOOD COUNT 3.84 10^6/uL (4.35-5.55); RED CELL DISTRIBUTION WIDTH 14.2 % (11.5-14.0); WHITE BLOOD COUNT 4.1 10^3/uL (4.0-10.5)
[2019-08-24 11:25] LABS: INTERNATIONAL RATION (INR) 1.22; PROTHROMBIN TIME 15.5 SEC (11.4-15.4)
[2019-08-24 11:26] LABS: PARTIAL THROMBOPLASTIN TIME 39.3 SEC (23.5-35.8)
[2019-08-24 11:30] LABS: BLOOD UREA NITROGEN 10 mg/dL (7-20)
[2019-08-24] MEDS ORDERED: ALBUMIN HUMAN 50 GM/200 ML RTUINJ IV PRN (13:19)
--- NOTE | 2019-08-24 14:29 | RADIOLOGY REPORT (SQ) ---
EXAM DESCRIPTION: U/S ABD PARACENTESIS IMAGES COMPLETED DATE/TIME: 08/24/2019 2:13 pm REASON FOR STUDY: OTHER ASCITES COMPARISON 08/12/2019 LIMITATIONS: None. PROCEDURE: After obtaining informed consent, the patient was brought to the ultrasound suite. The p rocedure was performed with the patient on a gurney. Ultrasound was used to identify a prominent poc ket of ascites in the right lower quadrant. An appropriate access site was selected. The patient wa s prepped and draped in usual sterile fashion. The access site was anesthetized with 10 mL 1% lidoc amanda. A Ckzz-S-Ogsqadjw needle was advanced into the fluid. After aspiration of fluid the needle, t he catheter was advanced off the needle into the fluid. A total of 8,400 mL of clear, straw-colored fluid was removed. The patient tolerated the procedure well left the department in satisfactory condi tion. IMPRESSION: Successful ultrasound-guided paracentesis COMMENT: Patient medication list reviewed: Yes- Quality ID# [id number]:Eligible professional attests to doc umenting in the medical record they obtained, updated, or reviewed the patient's current medications. TECHNICAL DOCUMENTATION: JOB ID: [id number] 2010 [employer]- All Rights Reserved Reading location - IP/workstation name: [email or web address]
[2019-08-24 15:04] VITALS: BP 109/60
== END 2019-08-24 14:55 | disposition hospice, home (50) ==
LOC: RAD 10:32
PROVIDERS: ATTEND Internal Medicine Gastroenterology
DX: K70.31 Alcoholic cirrhosis of liver with ascites (principal)
CPT/HCPCS: 36415; 84520; 82565; 85027; 85610; 85730; 49083; P9047

== ENCOUNTER 2019-09-09 06:49 | Day surgery (SDC) | payer OTHER ==
[2019-09-09 08:12] LABS: HEMATOCRIT 36.4 % (37.9-51.0); HEMOGLOBIN 12.9 g/dL (13.5-17.0); MEAN CORPUSCULAR HEMOGLOBIN 36.1 pg (27.0-33.4); MEAN CORPUSCULAR HGB CONC 35.3 g/dL (32.0-36.0); MEAN CORPUSCULAR VOLUME 102 fl (80-97); RED BLOOD COUNT 3.57 10^6/uL (4.35-5.55); WHITE BLOOD COUNT 3.4 10^3/uL (4.0-10.5)
[2019-09-09 08:19] LABS: PROTHROMBIN TIME 17.3 SEC (11.4-15.4)
[2019-09-09 08:20] LABS: PARTIAL THROMBOPLASTIN TIME 39.6 SEC (23.5-35.8)
[2019-09-09 08:27] LABS: BLOOD UREA NITROGEN 20 mg/dL (7-20); POTASSIUM 4.6 mmol/L (3.6-5.0)
[2019-09-09 08:36] LABS: PLATELET COUNT 86 10^3/uL (150-450)
[2019-09-09] MEDS ORDERED: DEXTROSE 5%-1/2 NORMAL SALINE 1,000 ML IV PRN (10:35)
[2019-09-09] MEDS ORDERED: ALBUMIN HUMAN 50 GM/200 ML RTUINJ IV PRN (10:39)
[2019-09-09] MEDS ORDERED: ALBUMIN HUMAN 12.5 GM/50 ML RTUINJ IV SCH (11:00)
--- NOTE | 2019-09-09 11:31 | RADIOLOGY REPORT (SQ) ---
EXAM DESCRIPTION: U/S ABD PARACENTESIS IMAGES COMPLETED DATE/TIME: 09/09/2019 11:12 am REASON FOR STUDY: ASCITES R18.8 OTHER ASCITES COMPARISON: None. LIMITATIONS: None. PROCEDURE: Procedure, risks, benefit, and alternative explained to patient who then gave written con sent. The right lower abdominal wall marked using ultrasound guidance. A time-out was called for co rrect marking verification. Abdomen prepped and draped using sterile technique. Local anesthesia ach ieved using 3.5 ml of 1% lidocaine injection. A 6fr Htyt-X-Wmaskvco set was introduced into the shelby toneal cavity. Fluid was drained. The catheter was removed and entry site was covered with sterile bandage. No immediate complications noted. Images acquired during the procedure were stored on PACS. FINDINGS: ENTRY SITE: right lower quadrant. FLUID VOLUME: 8300 cc FLUID ANALYSIS: Straw-colored. OTHER: Therapeutic only. IMPRESSION: SUCCESSFUL ULTRASOUND GUIDED PARACENTESIS. COMMENT: Patient medication list reviewed:Yes- Quality ID# [id number]:Eligible professional attests to docu menting in the medical record they obtained, updated, or reviewed the patient's current medications. TECHNICAL DOCUMENTATION: JOB ID: [id number] 2010 [employer]- All Rights Reserved Reading location - IP/workstation name: [email or web address]
[2019-09-09 13:01] VITALS: BP 103/72
== END 2019-09-09 12:52 | disposition home or self-care (01) ==
LOC: RAD 06:49
PROVIDERS: ATTEND Internal Medicine Gastroenterology
DX: R18.8 Other ascites (principal)
CPT/HCPCS: 36415; 84520; 82565; 84132; 85027; 85610; 85730; 49083; P9047

== ENCOUNTER 2019-09-21 07:15 | Day surgery (SDC) | payer OTHER ==
[2019-09-21 08:16] LABS: HEMATOCRIT 35.8 % (37.9-51.0); HEMOGLOBIN 12.7 g/dL (13.5-17.0); MEAN CORPUSCULAR HEMOGLOBIN 36.4 pg (27.0-33.4); MEAN CORPUSCULAR HGB CONC 35.6 g/dL (32.0-36.0); MEAN CORPUSCULAR VOLUME 102 fl (80-97); RED CELL DISTRIBUTION WIDTH 15.4 % (11.5-14.0); WHITE BLOOD COUNT 2.7 10^3/uL (4.0-10.5)
[2019-09-21 08:22] LABS: PROTHROMBIN TIME 17.3 SEC (11.4-15.4)
[2019-09-21 08:23] LABS: PARTIAL THROMBOPLASTIN TIME 40.2 SEC (23.5-35.8)
[2019-09-21 08:28] LABS: BLOOD UREA NITROGEN 13 mg/dL (7-20)
[2019-09-21 08:40] LABS: PLATELET COUNT 77 10^3/uL (150-450)
[2019-09-21] MEDS ORDERED: ALBUMIN HUMAN 50 GM/200 ML RTUINJ IV PRN (10:36)
[2019-09-21] MEDS ORDERED: ALBUMIN HUMAN 12.5 GM/50 ML RTUINJ IV SCH (10:45)
--- NOTE | 2019-09-21 11:54 | RADIOLOGY REPORT (SQ) ---
EXAM DESCRIPTION: U/S ABD PARACENTESIS IMAGES COMPLETED DATE/TIME: 09/21/2019 11:05 am REASON FOR STUDY: OTHER ASCITES COMPARISON None. LIMITATIONS: None. PROCEDURE: After obtaining informed consent, the patient was brought to the ultrasound suite. The p rocedure was performed with the patient on a gurney. Ultrasound was used to identify a prominent poc ket of ascites in the right lower quadrant. An appropriate access site was selected. The patient wa s prepped and draped in usual sterile fashion. The access site was anesthetized with 6 mL 1% lidoca ine. A Adis-A-Xnyugefw needle was advanced into the fluid. After aspiration of fluid the needle, th e catheter was advanced off the needle into the fluid. A total of 6,300 mL of straw-colored fluid wa s removed. The patient tolerated the procedure well left the department in satisfactory condition. IMPRESSION: Successful ultrasound-guided paracentesis. COMMENT: Patient medication list reviewed: Yes- Quality ID# [id number]:Eligible professional attests to doc umenting in the medical record they obtained, updated, or reviewed the patient's current medications. TECHNICAL DOCUMENTATION: JOB ID: [id number] 2010 [employer]- All Rights Reserved Reading location - IP/workstation name: [email or web address] [id number]
[2019-09-21 12:43] VITALS: BP 105/59
== END 2019-09-21 12:00 | disposition home or self-care (01) ==
LOC: RAD 07:15
PROVIDERS: ATTEND Internal Medicine Gastroenterology
DX: R18.8 Other ascites (principal); K74.60 Unspecified cirrhosis of liver
CPT/HCPCS: 36415; 84520; 82565; 85027; 85610; 85730; 49083; P9047

== ENCOUNTER 2019-10-04 11:18 | Day surgery (SDC) | payer OTHER ==
[2019-10-04 12:00] LABS: HEMATOCRIT 36.9 % (37.9-51.0); HEMOGLOBIN 13.1 g/dL (13.5-17.0); MEAN CORPUSCULAR HEMOGLOBIN 36.2 pg (27.0-33.4); MEAN CORPUSCULAR HGB CONC 35.4 g/dL (32.0-36.0); MEAN CORPUSCULAR VOLUME 102 fl (80-97); RED BLOOD COUNT 3.61 10^6/uL (4.35-5.55); WHITE BLOOD COUNT 3.2 10^3/uL (4.0-10.5)
[2019-10-04 12:06] LABS: PROTHROMBIN TIME 17.3 SEC (11.4-15.4)
[2019-10-04 12:07] LABS: PARTIAL THROMBOPLASTIN TIME 38.6 SEC (23.5-35.8)
[2019-10-04 12:21] LABS: BLOOD UREA NITROGEN 10 mg/dL (7-20); PLATELET COUNT 92 10^3/uL (150-450)
[2019-10-04] MEDS ORDERED: ALBUMIN HUMAN 50 GM/200 ML RTUINJ IV PRN ×2 (14:15→14:30)
--- NOTE | 2019-10-04 16:02 | RADIOLOGY REPORT (SQ) ---
EXAM DESCRIPTION: U/S ABD PARACENTESIS IMAGES COMPLETED DATE/TIME: 10/04/2019 3:49 pm REASON FOR STUDY: ASCITES COMPARISON 09/21/2019 LIMITATIONS: None. PROCEDURE: After obtaining informed consent, the patient was brought to the ultrasound suite. The p rocedure was performed with the patient on a gurney. Ultrasound was used to identify a prominent poc ket of ascites in the right lower quadrant. An appropriate access site was selected. The patient wa s prepped and draped in usual sterile fashion. The access site was anesthetized with 10 mL 1% lidoc amanda. A Rloz-Q-Xdnyjhed needle was advanced into the fluid. After aspiration of fluid the needle, t he catheter was advanced off the needle into the fluid. A total of 6,900 mL of clear, straw-colored fluid was removed. The patient tolerated the procedure well left the department in satisfactory condi tion. IMPRESSION: Successful ultrasound-guided paracentesis COMMENT: Patient medication list reviewed: Yes- Quality ID# [id number]:Eligible professional attests to doc umenting in the medical record they obtained, updated, or reviewed the patient's current medications. TECHNICAL DOCUMENTATION: JOB ID: [id number] 2010 [employer]- All Rights Reserved Reading location - IP/workstation name: [email or web address]
[2019-10-04 16:26] VITALS: BP 108/63
== END 2019-10-04 16:25 | disposition home or self-care (01) ==
LOC: RAD 11:18
PROVIDERS: ATTEND Internal Medicine Gastroenterology
DX: R18.8 Other ascites (principal)
CPT/HCPCS: 36415; 84520; 82565; 85027; 85610; 85730; 49083; P9047

== ENCOUNTER 2019-10-19 08:05 | Day surgery (SDC) | payer OTHER ==
[2019-10-19 10:12] LABS: HEMATOCRIT 35.3 % (37.9-51.0); HEMOGLOBIN 12.6 g/dL (13.5-17.0); MEAN CORPUSCULAR HEMOGLOBIN 36.7 pg (27.0-33.4); MEAN CORPUSCULAR HGB CONC 35.7 g/dL (32.0-36.0); MEAN CORPUSCULAR VOLUME 103 fl (80-97); RED BLOOD COUNT 3.43 10^6/uL (4.35-5.55); RED CELL DISTRIBUTION WIDTH 14.8 % (11.5-14.0); WHITE BLOOD COUNT 3.2 10^3/uL (4.0-10.5)
[2019-10-19 10:14] LABS: INTERNATIONAL RATION (INR) 1.36; PROTHROMBIN TIME 16.8 SEC (11.4-15.4)
[2019-10-19 10:15] LABS: PARTIAL THROMBOPLASTIN TIME 38.2 SEC (23.5-35.8)
[2019-10-19 10:31] LABS: PLATELET COUNT 86 10^3/uL (150-450)
[2019-10-19 10:38] LABS: BLOOD UREA NITROGEN 8 mg/dL (7-20)
[2019-10-19] MEDS ORDERED: ALBUMIN HUMAN 50 GM/200 ML RTUINJ IV PRN (11:35)
--- NOTE | 2019-10-19 13:45 | RADIOLOGY REPORT (SQ) ---
EXAM DESCRIPTION: U/S ABD PARACENTESIS IMAGES COMPLETED DATE/TIME: 10/19/2019 12:32 pm REASON FOR STUDY: ASCITES COMPARISON None. LIMITATIONS: None. PROCEDURE: After obtaining informed consent, the patient was brought to the ultrasound suite. The p rocedure was performed with the patient on a gurney. Ultrasound was used to identify a prominent poc ket of ascites in the left lower quadrant. An appropriate access site was selected. The patient was prepped and draped in usual sterile fashion. The access site was anesthetized with 10 mL 1% lidoca ine. A Qnmr-A-Ftublgwq needle was advanced into the fluid. After aspiration of fluid the needle, th e catheter was advanced off the needle into the fluid. A total of 6,425 mL of clear straw-colored fl uid was removed. The patient tolerated the procedure well and left the department in satisfactory con dition. IMPRESSION: Successful ultrasound-guided paracentesis COMMENT: Patient medication list reviewed: Yes- Quality ID# [id number]:Eligible professional attests to doc umenting in the medical record they obtained, updated, or reviewed the patient's current medications. TECHNICAL DOCUMENTATION: JOB ID: [id number] 2010 [employer]- All Rights Reserved Reading location - IP/workstation name: [email or web address]
[2019-10-19 14:14] VITALS: BP 131/73
== END 2019-10-19 14:13 | disposition home or self-care (01) ==
LOC: RAD 08:05
PROVIDERS: ATTEND Internal Medicine Gastroenterology
DX: R18.8 Other ascites (principal); K74.60 Unspecified cirrhosis of liver
CPT/HCPCS: 36415; 84520; 82565; 85027; 85610; 85730; 49083; P9047

== ENCOUNTER 2019-11-02 07:47 | Day surgery (SDC) | payer OTHER ==
[2019-11-02 09:11] LABS: HEMATOCRIT 35.5 % (37.9-51.0); HEMOGLOBIN 12.5 g/dL (13.5-17.0); MEAN CORPUSCULAR HEMOGLOBIN 37.2 pg (27.0-33.4); MEAN CORPUSCULAR HGB CONC 35.1 g/dL (32.0-36.0); MEAN CORPUSCULAR VOLUME 106 fl (80-97); RED BLOOD COUNT 3.35 10^6/uL (4.35-5.55); RED CELL DISTRIBUTION WIDTH 14.5 % (11.5-14.0); WHITE BLOOD COUNT 2.7 10^3/uL (4.0-10.5)
[2019-11-02 09:21] LABS: BLOOD UREA NITROGEN 11 mg/dL (7-20); INTERNATIONAL RATION (INR) 1.39; PROTHROMBIN TIME 17.2 SEC (11.4-15.4)
[2019-11-02 09:23] LABS: PARTIAL THROMBOPLASTIN TIME 37.8 SEC (23.5-35.8)
[2019-11-02 09:32] LABS: PLATELET COUNT 90 10^3/uL (150-450)
[2019-11-02] MEDS ORDERED: ALBUMIN HUMAN 50 GM/200 ML RTUINJ IV PRN (11:04)
[2019-11-02 14:45] VITALS: BP 108/54
--- NOTE | 2019-11-02 15:28 | RADIOLOGY REPORT (SQ) ---
EXAM DESCRIPTION: U/S ABD PARACENTESIS IMAGES COMPLETED DATE/TIME: 11/02/2019 11:47 am REASON FOR STUDY: ASCITES COMPARISON None. LIMITATIONS: None. PROCEDURE: After obtaining informed consent, the patient was brought to the ultrasound suite. The p rocedure was performed with the patient on a gurney. Ultrasound was used to identify a prominent poc ket of ascites in the right lower quadrant. An appropriate access site was selected. The patient wa s prepped and draped in usual sterile fashion. The access site was anesthetized with 6 mL 1% lidoca ine. A Pecn-J-Sdlvjrmo needle was advanced into the fluid. After aspiration of fluid the needle, th e catheter was advanced off the needle into the fluid. A total of 6,625 mL of serosanguineous fluid was removed. The patient tolerated the procedure well left the department in satisfactory condition. IMPRESSION: Successful ultrasound-guided paracentesis COMMENT: Patient medication list reviewed: Yes- Quality ID# [id number]:Eligible professional attests to doc umenting in the medical record they obtained, updated, or reviewed the patient's current medications. TECHNICAL DOCUMENTATION: JOB ID: [id number] 2010 [employer] All Rights Reserved Reading location - IP/workstation name: [email or web address] [id number]
== END 2019-11-02 13:10 | disposition home or self-care (01) ==
LOC: RAD 07:47
PROVIDERS: ATTEND Internal Medicine Gastroenterology
DX: R18.8 Other ascites (principal)
CPT/HCPCS: 36415; 84520; 82565; 85027; 85610; 85730; 49083; P9047

== ENCOUNTER 2019-11-12 06:46 | Emergency (ER) | payer OTHER ==
[2019-11-12 11:22] VITALS: BP 144/84
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
[2019-11-12 11:52] LABS: ABSOLUTE LYMPHOCYTES (AUTO) 0.3 10^3/uL (0.5-4.7); ABSOLUTE MONOCYTES (AUTO) 0.5 10^3/uL (0.1-1.4); ABSOLUTE NEUT (AUTO) 1.9 10^3/uL (1.7-8.2); BASOPHILS % (AUTO) 0.7 % (0-2); HEMOGLOBIN 13.8 g/dL (13.5-17.0); LYMPHOCYTES % (AUTO) 10.6 % (13-45); MEAN CORPUSCULAR HEMOGLOBIN 37.4 pg (27.0-33.4); MEAN CORPUSCULAR HGB CONC 35.5 g/dL (32.0-36.0); MEAN CORPUSCULAR VOLUME 106 fl (80-97); MONOCYTES % (AUTO) 18.3 % (3-13); PLATELET COUNT 101 10^3/uL (150-450); RED CELL DISTRIBUTION WIDTH 14.3 % (11.5-14.0); SEGMENTED NEUTROPHILS % (AUTO) 69.4 % (42-78); TOTAL CELLS COUNTED % (AUTO) 100 %; WHITE BLOOD COUNT 2.8 10^3/uL (4.0-10.5)
--- NOTE | 2019-11-12 11:56 | RADIOLOGY REPORT (SQ) ---
EXAM DESCRIPTION: ACUTE ABDOMEN SERIES IMAGES COMPLETED DATE/TIME: 11/12/2019 11:37 am REASON FOR STUDY: abdominal pain COMPARISON: None. NUMBER OF VIEWS: Three views. TECHNIQUE: Frontal chest, supine abdomen and upright/decubitus abdomen radiographic images acquired. LIMITATIONS: None. FINDINGS: CHEST: No focal airspace disease, pleural effusion or pneumothorax. Normal cardiomediasti nal silhouette. FREE AIR: None. No abnormal gas collections. BOWEL GAS PATTERN: Nonobstructive pattern. No dilated loops or air fluid levels. CALCIFICATIONS: Irregular calcification over the right upper quadrant, likely corresponding to calcif ied liver lesion on prior CT. No other suspicious calcifications. HARDWARE: None in the abdomen. Right humeral bone anchor. SOFT TISSUES: No gross mass or suggestion of organomegaly. BONES: No acute fracture. No worrisome bone lesions. Lower lumbar posterior fusion hardware. OTHER: Likely mild volume ascites. IMPRESSION: Likely ascities. Volume Evaluation limited on plain radiographs. No other evidence of acute intra-abdominal/pelvic process. Unchanged partially calcified liver naomi santana TECHNICAL DOCUMENTATION: JOB ID: [id number] 2010 [employer]- All Rights Reserved Reading location - IP/workstation name: [email or web address]
[2019-11-12 12:02] LABS: ALBUMIN 3.8 g/dL (3.5-5.0); ALKALINE PHOSPHATASE 123 U/L (38-126); ANION GAP 6 (5-19); ASPARTATE AMINO TRANSFERASE 121 U/L (17-59); BILIRUBIN,DIRECT 0.8 mg/dL (0.0-0.4); BILIRUBIN,TOTAL 3.2 mg/dL (0.2-1.3); BLOOD UREA NITROGEN 13 mg/dL (7-20); CALCIUM 9.4 mg/dL (8.4-10.2); CARBON DIOXIDE 32 mmol/L (22-30); CHLORIDE 87 mmol/L (98-107); GLUCOSE 119 mg/dL (75-110); POTASSIUM 5.3 mmol/L (3.6-5.0); TOTAL PROTEIN 7.9 g/dL (6.3-8.2)
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
== END 2019-11-12 12:56 | disposition home or self-care (01) ==
LOC: ER 06:46
DX: E87.1 Hypo-osmolality and hyponatremia (principal); D51.0 Vitamin B12 deficiency anemia due to intrinsic factor deficiency; D72.819 Decreased white blood cell count, unspecified; R10.32 Left lower quadrant pain; R64 Cachexia; R14.0 Abdominal distension (gaseous); Z85.05 Personal history of malignant neoplasm of liver
CPT/HCPCS: 36415; 74022; 80053; 83690; 85025; 99285

== ENCOUNTER 2019-11-16 07:30 | Day surgery (SDC) | payer OTHER ==
[2019-11-16 08:03] LABS: HEMATOCRIT 35.9 % (37.9-51.0); HEMOGLOBIN 12.6 g/dL (13.5-17.0); MEAN CORPUSCULAR HEMOGLOBIN 37.4 pg (27.0-33.4); MEAN CORPUSCULAR HGB CONC 35.1 g/dL (32.0-36.0); MEAN CORPUSCULAR VOLUME 107 fl (80-97); RED BLOOD COUNT 3.37 10^6/uL (4.35-5.55); RED CELL DISTRIBUTION WIDTH 14.4 % (11.5-14.0); WHITE BLOOD COUNT 2.7 10^3/uL (4.0-10.5)
[2019-11-16 08:07] LABS: INTERNATIONAL RATION (INR) 1.32; PROTHROMBIN TIME 16.5 SEC (11.4-15.4)
[2019-11-16 08:08] LABS: PARTIAL THROMBOPLASTIN TIME 37.2 SEC (23.5-35.8)
[2019-11-16 08:21] LABS: BLOOD UREA NITROGEN 12 mg/dL (7-20)
[2019-11-16 08:22] LABS: PLATELET COUNT 99 10^3/uL (150-450)
[2019-11-16] MEDS ORDERED: ALBUMIN HUMAN 50 GM/200 ML RTUINJ IV PRN (12:44)
[2019-11-16 14:26] VITALS: BP 107/58
--- NOTE | 2019-11-16 15:21 | RADIOLOGY REPORT (SQ) ---
EXAM DESCRIPTION: U/S ABD PARACENTESIS IMAGES COMPLETED DATE/TIME: 11/16/2019 2:16 pm REASON FOR STUDY: OTHER ASCITES R18.8 OTHER ASCITES COMPARISON: None. LIMITATIONS: None. PROCEDURE: Procedure, risks, benefit, and alternative explained to patient who then gave written con sent. The right lower abdominal wall marked using ultrasound guidance. A time-out was called for co rrect marking verification. Abdomen prepped and draped using sterile technique. Local anesthesia ach ieved using 3.0 ml of 1% lidocaine injection. A 6fr Egxv-Z-Nlscoell set was introduced into the shelby toneal cavity. Fluid was drained. The catheter was removed and entry site was covered with sterile bandage. No immediate complications noted. Images acquired during the procedure were stored on PACS. FINDINGS: ENTRY SITE: right lower quadrant. FLUID VOLUME: 6700 cc FLUID ANALYSIS: Viviana OTHER: Therapeutic only. IMPRESSION: SUCCESSFUL ULTRASOUND GUIDED PARACENTESIS. COMMENT: Patient medication list reviewed:Yes- Quality ID# [id number]:Eligible professional attests to docu menting in the medical record they obtained, updated, or reviewed the patient's current medications. TECHNICAL DOCUMENTATION: JOB ID: [id number] 2010 [employer]- All Rights Reserved Reading location - IP/workstation name: [email or web address]
== END 2019-11-16 14:30 | disposition home or self-care (01) ==
LOC: RAD 07:30
PROVIDERS: ATTEND Internal Medicine Gastroenterology
DX: K70.31 Alcoholic cirrhosis of liver with ascites (principal); C22.9 Malignant neoplasm of liver, not specified as primary or secondary
CPT/HCPCS: 36415; 84520; 82565; 85027; 85610; 85730; 49083; P9047

== ENCOUNTER 2019-11-30 07:37 | Day surgery (SDC) | payer OTHER ==
[2019-11-30 09:05] LABS: INTERNATIONAL RATION (INR) 1.32; PARTIAL THROMBOPLASTIN TIME 37.1 SEC (23.5-35.8); PROTHROMBIN TIME 16.5 SEC (11.4-15.4)
[2019-11-30 09:08] LABS: HEMATOCRIT 35.3 % (37.9-51.0); HEMOGLOBIN 12.4 g/dL (13.5-17.0); MEAN CORPUSCULAR HGB CONC 35.1 g/dL (32.0-36.0); MEAN CORPUSCULAR VOLUME 105 fl (80-97); RED BLOOD COUNT 3.34 10^6/uL (4.35-5.55); RED CELL DISTRIBUTION WIDTH 13.7 % (11.5-14.0); WHITE BLOOD COUNT 3.1 10^3/uL (4.0-10.5)
[2019-11-30 09:29] LABS: PLATELET COUNT 88 10^3/uL (150-450)
[2019-11-30 09:30] LABS: BLOOD UREA NITROGEN 9 mg/dL (7-20)
[2019-11-30] MEDS ORDERED: ALBUMIN HUMAN 50 GM/200 ML RTUINJ IV PRN (10:51)
--- NOTE | 2019-11-30 13:26 | RADIOLOGY REPORT (SQ) ---
EXAM DESCRIPTION: U/S ABD PARACENTESIS IMAGES COMPLETED DATE/TIME: 11/30/2019 11:37 am REASON FOR STUDY: ASCITES R18.8 OTHER ASCITES COMPARISON: 11/16/2019 paracentesis. RADIATION DOSE: None LIMITATIONS: None PROCEDURE: Procedure, risks, benefit, and alternative explained to patient who then gave written con sent. The right lower abdominal wall marked using ultrasound guidance. A time-out was called for co rrect marking verification. Abdomen prepped and draped using sterile technique. Local anesthesia ach ieved using 5 ml of 1% lidocaine injection. A 6fr Pwas-V-Verlpocs set was introduced into the perito lazaro cavity. Fluid was drained. The catheter was removed and entry site was covered with sterile ba ndage. No immediate complications noted. Images acquired during the procedure were stored on PACS. FINDINGS: ENTRY SITE: right lower quadrant. FLUID VOLUME: 6300 mL FLUID ANALYSIS: Straw-colored OTHER: Therapeutic only. IMPRESSION: SUCCESSFUL ULTRASOUND GUIDED PARACENTESIS. COMMENT: Patient medication list reviewed:Yes- Quality ID# [id number]:Eligible professional attests to docu menting in the medical record they obtained, updated, or reviewed the patient's current medications. TECHNICAL DOCUMENTATION: JOB ID: [id number] 2010 [employer]- All Rights Reserved Reading location - IP/workstation name: [email or web address] [id number]
[2019-11-30 14:09] VITALS: BP 122/87
== END 2019-11-30 12:30 | disposition home or self-care (01) ==
LOC: RAD 07:37
PROVIDERS: ATTEND Internal Medicine Gastroenterology
DX: R18.8 Other ascites (principal)
CPT/HCPCS: 36415; 84520; 82565; 85027; 85610; 85730; 49083; P9047

== ENCOUNTER 2019-12-14 03:48 | Emergency (ER) | payer OTHER ==
[2019-12-14 05:19] LABS: ABSOLUTE LYMPHOCYTES (AUTO) 0.4 10^3/uL (0.5-4.7); ABSOLUTE MONOCYTES (AUTO) 0.8 10^3/uL (0.1-1.4); ABSOLUTE NEUT (AUTO) 3.3 10^3/uL (1.7-8.2); EOSINOPHILS % (AUTO) 0.5 % (0-6); HEMATOCRIT 35.7 % (37.9-51.0); HEMOGLOBIN 12.5 g/dL (13.5-17.0); LYMPHOCYTES % (AUTO) 7.9 % (13-45); MEAN CORPUSCULAR HEMOGLOBIN 37.2 pg (27.0-33.4); MEAN CORPUSCULAR HGB CONC 35.2 g/dL (32.0-36.0); MEAN CORPUSCULAR VOLUME 106 fl (80-97); MONOCYTES % (AUTO) 16.8 % (3-13); PLATELET COUNT 113 10^3/uL (150-450); RED BLOOD COUNT 3.37 10^6/uL (4.35-5.55); RED CELL DISTRIBUTION WIDTH 13.9 % (11.5-14.0); SEGMENTED NEUTROPHILS % (AUTO) 73.8 % (42-78); TOTAL CELLS COUNTED % (AUTO) 100 %; WHITE BLOOD COUNT 4.5 10^3/uL (4.0-10.5)
[2019-12-14 05:20] LABS: ALBUMIN 3.6 g/dL (3.5-5.0); ALKALINE PHOSPHATASE 127 U/L (38-126); ANION GAP 8 (5-19); ASPARTATE AMINO TRANSFERASE 96 U/L (17-59); BILIRUBIN,DIRECT 1.2 mg/dL (0.0-0.4); BILIRUBIN,TOTAL 4.3 mg/dL (0.2-1.3); BLOOD UREA NITROGEN 18 mg/dL (7-20); CALCIUM 9.3 mg/dL (8.4-10.2); CARBON DIOXIDE 27 mmol/L (22-30); CHLORIDE 92 mmol/L (98-107); GLUCOSE 124 mg/dL (75-110); INTERNATIONAL RATION (INR) 1.35; PARTIAL THROMBOPLASTIN TIME 33.9 SEC (23.5-35.8); POTASSIUM 4.4 mmol/L (3.6-5.0); PROTHROMBIN TIME 16.8 SEC (11.4-15.4); TOTAL PROTEIN 7.6 g/dL (6.3-8.2)
[2019-12-14] MEDS ORDERED: NORMAL SALINE 500 ML with OCTREOTIDE ACETATE 500 MCG IV PRN ×2 (05:41)
[2019-12-14] MEDS ORDERED: HYDROMORPHONE HCL INJ/PF 2 MG/ML AMPULE IV ONE (05:41)
[2019-12-14] MEDS ORDERED: ONDANSETRON HCL INJ/PF 4 MG/2 ML SDV IV ONE (05:41)
[2019-12-14] MEDS ORDERED: OCTREOTIDE ACETATE INJ/PF 100 MCG/1 ML SDV IV ONE (05:45)
[2019-12-14] MEDS ORDERED: PANTOPRAZOLE SODIUM 40 MG VIAL IV PRN (05:46)
[2019-12-14] MEDS ORDERED: PANTOPRAZOLE SODIUM 40 MG VIAL IV ONE (05:46)
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
--- NOTE | 2019-12-14 07:30 | RADIOLOGY REPORT (SQ) ---
CHEST 1 VIEW on 12/14/2019 at 5:44 AM CLINICAL INDICATION: Shortness of breath, GI bleed COMPARISON: 11/12/2019 FINDINGS: The lungs are clear. Cardiac, hilar and mediastinal contours are within normal limits. Pulmonary vascularity is within normal limits. No bony abnormality is noted. IMPRESSION: No active disease.
[2019-12-14] MEDS ORDERED: OCTREOTIDE ACETATE INJ/PF 100 MCG/1 ML SDV ONE (07:41)
--- NOTE | 2019-12-14 07:46 | ER Document Report ---
Doctor's Note Notes: 12/14/19 07:37 69-year-old male patient with hepatocellular carcinoma, ascites, known esophageal varices has about a 5-day history of black stools several times a day, and yesterday several episodes of hematemesis. He has not thrown up blood since yesterday afternoon. Patient's hemoglobin was 12.5 which is his baseline for the last several months. At this time he is waiting for a bed at several facilities. I just received a call from [facility] and discussed the patient with Dr. Wade, during the discussion, we learned that they were going off regional diversion and the patient would likely have a bed soon. They are concerned about the COVID testing, I did not know if the one done was a rapid test or the one that takes 3 days to get the results. 12/14/19 08:15 The patient is COVID test came back negative. [facility] called back, they do not have beds, they are going to call some of the other facilities they are affiliated with that are near to this hospital to see if they can find one that can do ERCP on a patient with esophageal varices. 12/14/19 09:08 The [place] transfer center called back and reports patient has a bed at [facility] at [address], [place] [address]. The accepting doctor will be Dr. Salcido. He will go to room #2914. The number for the nurses to call report is [phone].
[2019-12-14 09:40] LABS: C DIFFICILE GDH NEGATIVE (NEGATIVE)
[2019-12-14 09:54] VITALS: BP 122/76
--- NOTE | 2019-12-14 10:08 | EKG REPORT ---
SEVERITY:- OTHERWISE NORMAL ECG - SINUS ARRHYTHMIA, RATE 50-75 LOW VOLTAGE IN FRONTAL LEADS : Confirmed by: Cindy Mendoza MD 14-Dec-2019 10:07:40
== END 2019-12-14 10:00 | disposition short-term general hospital (02) ==
LOC: ER 03:48
DX: K92.0 Hematemesis (principal); K92.1 Melena; C22.0 Liver cell carcinoma; R18.8 Other ascites; I85.00 Esophageal varices without bleeding; R19.4 Change in bowel habit; R53.1 Weakness; J44.9 Chronic obstructive pulmonary disease, unspecified; R06.02 Shortness of breath; F12.10 Cannabis abuse, uncomplicated; Z87.891 Personal history of nicotine dependence; Z20.828 Contact with and (suspected) exposure to other viral communicable diseases
CPT/HCPCS: 93005; 99291; 99292; 86900; 86901; 36415; 86850; 85025; 85610; 85730; 82270; 87635; 82272; 80053; 84484; 87324; 87449; 71045; 93010; J1170; J2354; C9113; J2405; C9803

== ENCOUNTER 2019-12-28 07:22 | Day surgery (SDC) | payer OTHER ==
[2019-12-28 08:34] LABS: HEMATOCRIT 30.8 % (37.9-51.0); HEMOGLOBIN 10.7 g/dL (13.5-17.0); MEAN CORPUSCULAR HEMOGLOBIN 36.5 pg (27.0-33.4); MEAN CORPUSCULAR HGB CONC 34.6 g/dL (32.0-36.0); MEAN CORPUSCULAR VOLUME 106 fl (80-97); PLATELET COUNT 106 10^3/uL (150-450); RED BLOOD COUNT 2.92 10^6/uL (4.35-5.55); WHITE BLOOD COUNT 3.9 10^3/uL (4.0-10.5)
[2019-12-28 08:40] LABS: INTERNATIONAL RATION (INR) 1.39; PARTIAL THROMBOPLASTIN TIME 38.9 SEC (23.5-35.8); PROTHROMBIN TIME 17.2 SEC (11.4-15.4)
[2019-12-28 08:51] LABS: BLOOD UREA NITROGEN 11 mg/dL (7-20)
--- NOTE | 2019-12-28 12:42 | RADIOLOGY REPORT (SQ) ---
EXAM DESCRIPTION: U/S ABD PARACENTESIS IMAGES COMPLETED DATE/TIME: 12/28/2019 11:52 am REASON FOR STUDY: ASCITES COMPARISON 11/30/2019. LIMITATIONS: None. PROCEDURE: After obtaining informed consent, the patient was brought to the ultrasound suite. The p rocedure was performed with the patient on a gurney. Ultrasound was used to identify a prominent poc ket of ascites in the right lower quadrant. An appropriate access site was selected. The patient wa s prepped and draped in usual sterile fashion. The access site was anesthetized with 10 mL 1% lidoc amanda. A Fagz-D-Cwuaeyvn needle was advanced into the fluid. After aspiration of fluid the needle, t he catheter was advanced off the needle into the fluid. A total of 1,300 mL of straw-colored fluid w as removed. The patient tolerated the procedure well left the department in satisfactory condition. IMPRESSION: Successful ultrasound-guided paracentesis COMMENT: Patient medication list reviewed: Yes- Quality ID# [id number]:Eligible professional attests to doc umenting in the medical record they obtained, updated, or reviewed the patient's current medications. TECHNICAL DOCUMENTATION: JOB ID: [id number] 2010 [employer]- All Rights Reserved Reading location - IP/workstation name: [email or web address]
[2019-12-28 13:01] VITALS: BP 128/56
== END 2019-12-28 11:45 | disposition home or self-care (01) ==
LOC: RAD 07:22
PROVIDERS: ATTEND Internal Medicine Gastroenterology
DX: K70.31 Alcoholic cirrhosis of liver with ascites (principal)
CPT/HCPCS: 36415; 49083; 82565; 84520; 85027; 85610; 85730

== ENCOUNTER 2020-01-11 07:38 | Day surgery (SDC) | payer OTHER ==
[2020-01-11] MEDS ORDERED: ALBUMIN HUMAN 50 GM/200 ML RTUINJ IV PRN (10:55)
--- NOTE | 2020-01-11 12:09 | RADIOLOGY REPORT (SQ) ---
EXAM DESCRIPTION: U/S ABD PARACENTESIS IMAGES COMPLETED DATE/TIME: 01/11/2020 11:56 am REASON FOR STUDY: ASCITES COMPARISON 12/28/2019. LIMITATIONS: None. PROCEDURE: After obtaining informed consent, the patient was brought to the ultrasound suite. The p rocedure was performed with the patient on a gurney. Ultrasound was used to identify a prominent poc ket of ascites in the right lower quadrant. An appropriate access site was selected. The patient wa s prepped and draped in usual sterile fashion. The access site was anesthetized with 10 mL 1% lidoc amanda. A Paeg-J-Nmejqpgu needle was advanced into the fluid. After aspiration of fluid the needle, t he catheter was advanced off the needle into the fluid. A total of 9,100 mL of straw-colored fluid w as removed. The patient tolerated the procedure well left the department in satisfactory condition. IMPRESSION: Successful ultrasound-guided paracentesis COMMENT: Patient medication list reviewed: Yes- Quality ID# [id number]:Eligible professional attests to doc umenting in the medical record they obtained, updated, or reviewed the patient's current medications. TECHNICAL DOCUMENTATION: JOB ID: [id number] 2010 [employer]- All Rights Reserved Reading location - IP/workstation name: [email or web address]
[2020-01-11 17:24] VITALS: BP 110/61
== END 2020-01-11 13:10 | disposition home or self-care (01) ==
LOC: RAD 07:38
PROVIDERS: ATTEND Internal Medicine Gastroenterology
DX: R18.8 Other ascites (principal)
CPT/HCPCS: 49083; P9047

== ENCOUNTER 2020-01-25 07:46 | Day surgery (SDC) | payer OTHER ==
[2020-01-25 08:19] LABS: HEMATOCRIT 33.9 % (37.9-51.0); HEMOGLOBIN 11.7 g/dL (13.5-17.0); MEAN CORPUSCULAR HEMOGLOBIN 35.3 pg (27.0-33.4); MEAN CORPUSCULAR HGB CONC 34.6 g/dL (32.0-36.0); RED BLOOD COUNT 3.33 10^6/uL (4.35-5.55); RED CELL DISTRIBUTION WIDTH 13.6 % (11.5-14.0); WHITE BLOOD COUNT 3.1 10^3/uL (4.0-10.5)
[2020-01-25 08:30] LABS: PROTHROMBIN TIME 17.3 SEC (11.4-15.4)
[2020-01-25 08:31] LABS: PARTIAL THROMBOPLASTIN TIME 41.7 SEC (23.5-35.8)
[2020-01-25 08:39] LABS: BLOOD UREA NITROGEN 14 mg/dL (7-20)
[2020-01-25 08:54] LABS: MEAN CORPUSCULAR VOLUME 102 fl (80-97)
[2020-01-25 08:55] LABS: PLATELET COUNT 106 10^3/uL (150-450)
[2020-01-25] MEDS ORDERED: ALBUMIN HUMAN 50 GM/200 ML RTUINJ IV PRN (09:51)
[2020-01-25] MEDS ORDERED: ALBUMIN HUMAN 12.5 GM/50 ML RTUINJ IV SCH (10:00)
[2020-01-25 13:32] VITALS: BP 133/58
--- NOTE | 2020-01-25 13:58 | RADIOLOGY REPORT (SQ) ---
EXAM DESCRIPTION: U/S ABD PARACENTESIS IMAGES COMPLETED DATE/TIME: 01/25/2020 10:20 am REASON FOR STUDY: ASCITES COMPARISON None. LIMITATIONS: None. PROCEDURE: After obtaining informed consent, the patient was brought to the ultrasound suite. The p rocedure was performed with the patient on a gurney. Ultrasound was used to identify a prominent poc ket of ascites in the right lower quadrant. An appropriate access site was selected. The patient wa s prepped and draped in usual sterile fashion. The access site was anesthetized with 6 mL 1% lidoca ine. A Vguu-H-Jqxyyjhb needle was advanced into the fluid. After aspiration of fluid the needle, th e catheter was advanced off the needle into the fluid. A total of 6,400 mL of straw-colored fluid wa s removed. The patient tolerated the procedure well left the department in satisfactory condition. IMPRESSION: Successful ultrasound-guided paracentesis COMMENT: Patient medication list reviewed: Yes- Quality ID# [id number]:Eligible professional attests to doc umenting in the medical record they obtained, updated, or reviewed the patient's current medications. TECHNICAL DOCUMENTATION: JOB ID: [id number] 2010 [employer]- All Rights Reserved Reading location - IP/workstation name: [email or web address]
== END 2020-01-25 11:30 | disposition home or self-care (01) ==
LOC: RAD 07:46
PROVIDERS: ATTEND Internal Medicine Gastroenterology
DX: R18.8 Other ascites (principal); C22.0 Liver cell carcinoma
CPT/HCPCS: 36415; 84520; 82565; 85027; 85610; 85730; 49083; P9047

== ENCOUNTER 2020-01-31 08:56 | Day surgery (SDC) | payer OTHER ==
[2020-01-31 09:41] LABS: HEMATOCRIT 35.4 % (37.9-51.0); HEMOGLOBIN 12.7 g/dL (13.5-17.0); MEAN CORPUSCULAR HEMOGLOBIN 35.8 pg (27.0-33.4); MEAN CORPUSCULAR VOLUME 99 fl (80-97); PLATELET COUNT 121 10^3/uL (150-450); RED BLOOD COUNT 3.56 10^6/uL (4.35-5.55); RED CELL DISTRIBUTION WIDTH 13.9 % (11.5-14.0); WHITE BLOOD COUNT 3.1 10^3/uL (4.0-10.5)
[2020-01-31 09:48] LABS: PROTHROMBIN TIME 16.4 SEC (11.4-15.4)
[2020-01-31 10:17] LABS: BLOOD UREA NITROGEN 15 mg/dL (7-20)
--- NOTE | 2020-01-31 12:59 | RADIOLOGY REPORT (SQ) ---
EXAM DESCRIPTION: U/S ABD PARACENTESIS IMAGES COMPLETED DATE/TIME: 01/31/2020 11:58 am REASON FOR STUDY: OTHER ASCITES COMPARISON None. LIMITATIONS: None. PROCEDURE: After obtaining informed consent, the patient was brought to the ultrasound suite. The p rocedure was performed with the patient on a gurney. Ultrasound was used to identify a prominent poc ket of ascites in the right lower quadrant. An appropriate access site was selected. The patient wa s prepped and draped in usual sterile fashion. The access site was anesthetized with 5 mL 1% lidoca ine. A Kuoj-S-Wqosyngu needle was advanced into the fluid. After aspiration of fluid the needle, th e catheter was advanced off the needle into the fluid. A total of 5,000 mL of straw-colored fluid wa s removed. The patient tolerated the procedure well left the department in satisfactory condition. IMPRESSION: Successful ultrasound-guided paracentesis COMMENT: Patient medication list reviewed: Yes- Quality ID# [id number]:Eligible professional attests to doc umenting in the medical record they obtained, updated, or reviewed the patient's current medications. TECHNICAL DOCUMENTATION: JOB ID: [id number] 2010 [employer]- All Rights Reserved Reading location - IP/workstation name: [email or web address] [id number]
[2020-01-31 13:46] VITALS: BP 110/62
== END 2020-01-31 12:30 | disposition home or self-care (01) ==
LOC: RAD 08:56
PROVIDERS: ATTEND Internal Medicine Gastroenterology
DX: R18.8 Other ascites (principal); K74.60 Unspecified cirrhosis of liver
CPT/HCPCS: 36415; 49083; 82565; 84520; 85027; 85610; 85730

== ENCOUNTER 2020-02-08 07:40 | Day surgery (SDC) | payer OTHER ==
[2020-02-08 08:59] LABS: HEMATOCRIT 33.8 % (37.9-51.0); HEMOGLOBIN 11.9 g/dL (13.5-17.0); MEAN CORPUSCULAR HEMOGLOBIN 35.3 pg (27.0-33.4); MEAN CORPUSCULAR HGB CONC 35.3 g/dL (32.0-36.0); MEAN CORPUSCULAR VOLUME 100 fl (80-97); PLATELET COUNT 124 10^3/uL (150-450); RED BLOOD COUNT 3.38 10^6/uL (4.35-5.55); RED CELL DISTRIBUTION WIDTH 14.1 % (11.5-14.0); WHITE BLOOD COUNT 4.3 10^3/uL (4.0-10.5)
[2020-02-08 09:39] LABS: PROTHROMBIN TIME 16.4 SEC (11.4-15.4)
[2020-02-08 09:40] LABS: PARTIAL THROMBOPLASTIN TIME 41.5 SEC (23.5-35.8)
[2020-02-08 09:53] LABS: BLOOD UREA NITROGEN 18 mg/dL (7-20)
[2020-02-08] MEDS ORDERED: ALBUMIN HUMAN 50 GM/200 ML RTUINJ IV PRN (11:15)
--- NOTE | 2020-02-08 12:53 | RADIOLOGY REPORT (SQ) ---
EXAM DESCRIPTION: U/S ABD PARACENTESIS IMAGES COMPLETED DATE/TIME: 02/08/2020 12:28 pm REASON FOR STUDY: OTHER ASCITES COMPARISON None. LIMITATIONS: None. PROCEDURE: After obtaining informed consent, the patient was brought to the ultrasound suite. The p rocedure was performed with the patient on a gurney. Ultrasound was used to identify a prominent poc ket of ascites in the right lower quadrant. An appropriate access site was selected. The patient wa s prepped and draped in usual sterile fashion. The access site was anesthetized with 4 mL 1% lidoca ine. A Jcrf-R-Steqbbwk needle was advanced into the fluid. After aspiration of fluid the needle, th e catheter was advanced off the needle into the fluid. A total of 9,750 mL of straw-colored fluid wa s removed. The patient tolerated the procedure well left the department in satisfactory condition. IMPRESSION: Successful ultrasound-guided paracentesis COMMENT: Patient medication list reviewed: Yes- Quality ID# [id number]:Eligible professional attests to doc umenting in the medical record they obtained, updated, or reviewed the patient's current medications. TECHNICAL DOCUMENTATION: JOB ID: [id number] 2010 [employer]- All Rights Reserved Reading location - IP/workstation name: [email or web address] [id number]
[2020-02-08 16:33] VITALS: BP 106/44
== END 2020-02-08 13:45 | disposition home or self-care (01) ==
LOC: RAD 07:40
PROVIDERS: ATTEND Internal Medicine Gastroenterology
DX: R18.8 Other ascites (principal)
CPT/HCPCS: 36415; 84520; 82565; 85027; 85610; 85730; 49083; P9047

== ENCOUNTER 2020-02-09 10:41 | Inpatient (IN) | payer OTHER, MEDICARE ==
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
[2020-02-09 12:20] LABS: HEMATOCRIT 35.2 % (37.9-51.0); HEMOGLOBIN 12.5 g/dL (13.5-17.0); MEAN CORPUSCULAR HEMOGLOBIN 35.2 pg (27.0-33.4); MEAN CORPUSCULAR HGB CONC 35.7 g/dL (32.0-36.0); MEAN CORPUSCULAR VOLUME 99 fl (80-97); RED BLOOD COUNT 3.56 10^6/uL (4.35-5.55); RED CELL DISTRIBUTION WIDTH 13.9 % (11.5-14.0); WHITE BLOOD COUNT 4.5 10^3/uL (4.0-10.5)
--- NOTE | 2020-02-09 12:22 | RADIOLOGY REPORT (SQ) ---
EXAM DESCRIPTION: CT HEAD WITHOUT IMAGES COMPLETED DATE/TIME: 02/09/2020 12:12 pm REASON FOR STUDY: fall, loc COMPARISON: None. TECHNIQUE: Axial images acquired through the brain without intravenous contrast. Images reviewed wi th bone, brain and subdural windows. Additional sagittal and coronal reconstructions were generated. Images stored on PACS. All CT scanners at this facility use dose modulation, iterative reconstruction, and/or weight based d osing when appropriate to reduce radiation dose to as low as reasonably achievable (ALARA). [facility]: Dose Right [facility]: CareDose [facility]: Dose Right [facility]: Teradose 4D [facility]: [employer] RADIATION DOSE: CT Rad equipment meets quality standard of care and radiation dose reduction techniq ues were employed. CTDIvol: 53.2 mGy. DLP: 1017 mGy-cm. mGy. LIMITATIONS: None. FINDINGS: VENTRICLES: Normal size and contour. CEREBRUM: No masses. No hemorrhage. No midline shift. No evidence for acute infarction. Normal gra y/white matter differentiation. No areas of low density in the white matter. CEREBELLUM: No masses. No hemorrhage. No alteration of density. No evidence for acute infarction. EXTRAAXIAL SPACES: No fluid collections. No masses. ORBITS AND GLOBE: No intra- or extraconal masses. Normal contour of globe without masses. CALVARIUM: No fracture. PARANASAL SINUSES: No fluid or mucosal thickening. SOFT TISSUES: No mass or hematoma. OTHER: No other significant finding. IMPRESSION: NORMAL BRAIN CT WITHOUT CONTRAST. EVIDENCE OF ACUTE STROKE: NO. COMMENT: Quality ID # [id number]: Final reports with documentation of one or more dose reduction techniques (e.g., Automated exposure control, adjustment of the mA and/or kV according to patient size, use of iterative reconstruction technique) TECHNICAL DOCUMENTATION: JOB ID: [id number] 2010 [employer]- All Rights Reserved Reading location - IP/workstation name: [email or web address]
[2020-02-09 12:36] LABS: ALBUMIN 3.5 g/dL (3.5-5.0); ALKALINE PHOSPHATASE 84 U/L (38-126); ASPARTATE AMINO TRANSFERASE 76 U/L (17-59); BILIRUBIN,DIRECT 1.6 mg/dL (0.0-0.4); BLOOD UREA NITROGEN 21 mg/dL (7-20); CALCIUM 9.2 mg/dL (8.4-10.2); CARBON DIOXIDE 21 mmol/L (22-30); CHLORIDE 87 mmol/L (98-107); CREATINE KINASE 70 U/L (55-170); GLUCOSE 117 mg/dL (75-110); POTASSIUM 5.3 mmol/L (3.6-5.0); TOTAL PROTEIN 6.8 g/dL (6.3-8.2)
[2020-02-09 12:37] LABS: ANION GAP 9 (5-19)
[2020-02-09 12:48] LABS: ABSOLUTE LYMPHOCYTES# (MANUAL) 0.2 10^3/uL (0.5-4.7); ABSOLUTE MONOCYTES # (MANUAL) 0.3 10^3/uL (0.1-1.4); BAND NEUTROPHILS % (MANUAL) 1 % (3-5); BASOPHILS % (MANUAL) 0 % (0-2); EOSINOPHILS % (MANUAL) 0 % (0-6); LYMPHOCYTES % (MANUAL) 4 % (13-45); MONOCYTES % (MANUAL) 7 % (3-13); SEGMENTED NEUTROPHILS % (MAN) 88 % (42-78); TOTAL CELLS COUNTED 100
[2020-02-09 12:49] LABS: ANISOCYTOSIS SLIGHT
[2020-02-09 12:50] LABS: OVALOCYTES SLIGHT; PLATELET CLUMPS PRESENT; PLATELET COMMENT DECREASED; PLATELET COUNT 116 10^3/uL (150-450); POIKILOCYTOSIS SLIGHT
--- NOTE | 2020-02-09 12:52 | RADIOLOGY REPORT (SQ) ---
EXAM DESCRIPTION: FOOT LEFT COMPLETE IMAGES COMPLETED DATE/TIME: 02/09/2020 12:36 pm REASON FOR STUDY: fall, foot pain COMPARISON: None. NUMBER OF VIEWS: Three views. TECHNIQUE: AP, lateral and oblique radiographic images acquired of the left foot. LIMITATIONS: None. FINDINGS: MINERALIZATION: Normal. BONES: No acute fracture or dislocation. No worrisome bone lesions. JOINTS: No effusions. SOFT TISSUES: No soft tissue swelling. No foreign body. OTHER: No other significant finding. IMPRESSION: NEGATIVE STUDY OF THE LEFT FOOT. NO RADIOGRAPHIC EVIDENCE OF ACUTE INJURY. TECHNICAL DOCUMENTATION: JOB ID: [id number] 2010 [employer]- All Rights Reserved Reading location - IP/workstation name: [email or web address]
--- NOTE | 2020-02-09 12:53 | RADIOLOGY REPORT (SQ) ---
EXAM DESCRIPTION: KNEE LEFT 3 VIEWS IMAGES COMPLETED DATE/TIME: 02/09/2020 12:36 pm REASON FOR STUDY: fall left knee pain COMPARISON: None. NUMBER OF VIEWS: Three views. TECHNIQUE: AP, lateral, both oblique, and sunrise patella radiographic images acquired of the left k nee. LIMITATIONS: None. FINDINGS: MINERALIZATION: Normal. BONES: No acute fracture or dislocation. JOINT: Prior total arthroplasty. Moderate joint effusion. Suprapatellar soft tissue swelling. SOFT TISSUES: No soft tissue swelling. No radio-opaque foreign body. OTHER: No other significant finding. IMPRESSION: Prior total arthroplasty. Moderate joint effusion with suprapatellar soft tissue edema. TECHNICAL DOCUMENTATION: JOB ID: [id number] 2010 [employer]- All Rights Reserved Reading location - IP/workstation name: [email or web address]
[2020-02-09] MEDS ORDERED: ONDANSETRON HCL INJ/PF 4 MG/2 ML SDV IV PRN (14:02)
[2020-02-09] MEDS ORDERED: ACETAMINOPHEN 650 MG SUPP.RECT PR PRN (14:02)
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
[2020-02-09] MEDS ORDERED: MORPHINE SULFATE 10 MG/ML INJ IV ONE (14:05)
--- NOTE | 2020-02-09 14:43 | EKG REPORT ---
SEVERITY:- NORMAL ECG - SINUS RHYTHM : Confirmed by: Cindy Mendoza MD 09-Feb-2020 14:42:17
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
[2020-02-09] MEDS: NORMAL SALINE 1000 ML 1,000 ML IV PRN ×2 (15:45→21:37)
[2020-02-09 16:30] LABS: ALKALINE PHOSPHATASE 67 U/L (38-126); ASPARTATE AMINO TRANSFERASE 69 U/L (17-59); BILIRUBIN,DIRECT 1.6 mg/dL (0.0-0.4); BLOOD UREA NITROGEN 22 mg/dL (7-20); CALCIUM 8.8 mg/dL (8.4-10.2); CARBON DIOXIDE 23 mmol/L (22-30); CHLORIDE 90 mmol/L (98-107); GLUCOSE 120 mg/dL (75-110); POTASSIUM 5.7 mmol/L (3.6-5.0); TOTAL PROTEIN 6.1 g/dL (6.3-8.2)
[2020-02-09 16:32] LABS: ANION GAP 6 (5-19)
[2020-02-09] MEDS ORDERED: ACETAMINOPHEN 325 MG TABLET PO PRN (20:49)
[2020-02-09] MEDS: HEPARIN SOD (PORCINE) 5,000 UNIT/ML 1 ML VIAL SUBCUT SCH (21:40)
[2020-02-09] MEDS: PANTOPRAZOLE SODIUM 40 MG TABLET.DR PO SCH (21:40)
[2020-02-10 02:09] LABS: APPEARANCE,URINE CLEAR; BILIRUBIN,URINE NEGATIVE (NEGATIVE); COLOR,URINE AMBER; GLUCOSE, URINE NEGATIVE (NEGATIVE); KETONES,URINE NEGATIVE (NEGATIVE); LEUKOCYTE ESTERASE,URINE NEGATIVE (NEGATIVE); NITRITE,URINE NEGATIVE (NEGATIVE); PROTEIN,URINE NEGATIVE (NEGATIVE); URINE SPECIFIC GRAVITY 1.021
[2020-02-10] MEDS: NORMAL SALINE 1000 ML 1,000 ML IV PRN (03:10)
[2020-02-10] MEDS: HEPARIN SOD (PORCINE) 5,000 UNIT/ML 1 ML VIAL SUBCUT SCH ×3 (06:41→21:43)
[2020-02-10] MEDS: PANTOPRAZOLE SODIUM 40 MG TABLET.DR PO SCH ×2 (06:41→17:13)
[2020-02-10 07:32] LABS: ABSOLUTE LYMPHOCYTES (AUTO) 0.2 10^3/uL (0.5-4.7); ABSOLUTE MONOCYTES (AUTO) 0.7 10^3/uL (0.1-1.4); ABSOLUTE NEUT (AUTO) 2.7 10^3/uL (1.7-8.2); BASOPHILS % (AUTO) 0.2 % (0-2); EOSINOPHILS % (AUTO) 0.7 % (0-6); HEMATOCRIT 29.9 % (37.9-51.0); HEMOGLOBIN 10.7 g/dL (13.5-17.0); LYMPHOCYTES % (AUTO) 6.7 % (13-45); MEAN CORPUSCULAR HEMOGLOBIN 35.4 pg (27.0-33.4); MEAN CORPUSCULAR HGB CONC 35.9 g/dL (32.0-36.0); MEAN CORPUSCULAR VOLUME 99 fl (80-97); MONOCYTES % (AUTO) 19.8 % (3-13); RED BLOOD COUNT 3.02 10^6/uL (4.35-5.55); SEGMENTED NEUTROPHILS % (AUTO) 72.6 % (42-78); TOTAL CELLS COUNTED % (AUTO) 100 %; WHITE BLOOD COUNT 3.7 10^3/uL (4.0-10.5)
[2020-02-10 07:41] LABS: INTERNATIONAL RATION (INR) 1.57; PROTHROMBIN TIME 18.9 SEC (11.4-15.4)
[2020-02-10 07:51] LABS: ALBUMIN 2.6 g/dL (3.5-5.0); ALKALINE PHOSPHATASE 64 U/L (38-126); ANION GAP 7 (5-19); ASPARTATE AMINO TRANSFERASE 62 U/L (17-59); BILIRUBIN,DIRECT 1.7 mg/dL (0.0-0.4); BILIRUBIN,TOTAL 5.7 mg/dL (0.2-1.3); BLOOD UREA NITROGEN 21 mg/dL (7-20); CALCIUM 8.2 mg/dL (8.4-10.2); CARBON DIOXIDE 21 mmol/L (22-30); CHLORIDE 93 mmol/L (98-107); CHOLESTEROL 84.88 mg/dL (0-200); CREATINE KINASE 57 U/L (55-170); GLUCOSE 87 mg/dL (75-110); POTASSIUM 4.8 mmol/L (3.6-5.0); TOTAL PROTEIN 5.7 g/dL (6.3-8.2); TRIGLYCERIDES 32 mg/dL (<150)
[2020-02-10] MEDS ORDERED: OXYCODONE HCL IR 5 MG TABLET PO PRN (07:54)
[2020-02-10 08:02] LABS: DIRECT LDL 37 mg/dL (<100)
[2020-02-10 08:10] LABS: PLATELET COUNT 83 10^3/uL (150-450)
[2020-02-10] MEDS: SENNOSIDES/DOCUSATE 8.6-50 MG 1 EACH TABLET PO SCH (09:17)
[2020-02-10] MEDS: LACTULOSE SYRUP 20 GM/30 ML UDCUP PO SCH (09:17)
[2020-02-10] MEDS: POLYETHYLENE GLYCOL 3350 POWDER 17 GM/1 PACKET PO SCH (09:17)
[2020-02-10] MEDS ORDERED: FUROSEMIDE 40 MG TABLET PO SCH (10:00)
[2020-02-10] MEDS ORDERED: LACTOSE REDUCED FOOD PO SCH (10:00)
[2020-02-10] MEDS ORDERED: (PENDING PHARMACY ID) (Lactulose [Lactulose] 10 GM) PO SCH (10:00)
[2020-02-10 11:36] LABS: ALBUMIN 3.2 g/dL (3.5-5.0); ALKALINE PHOSPHATASE 75 U/L (38-126); ANION GAP 11 (5-19); ASPARTATE AMINO TRANSFERASE 72 U/L (17-59); BILIRUBIN,DIRECT 2.1 mg/dL (0.0-0.4); BILIRUBIN,TOTAL 6.9 mg/dL (0.2-1.3); BLOOD UREA NITROGEN 22 mg/dL (7-20); CALCIUM 8.5 mg/dL (8.4-10.2); CARBON DIOXIDE 18 mmol/L (22-30); CHLORIDE 92 mmol/L (98-107); GLUCOSE 121 mg/dL (75-110); POTASSIUM 4.6 mmol/L (3.6-5.0); TOTAL PROTEIN 6.6 g/dL (6.3-8.2)
[2020-02-10] MEDS ORDERED: NORMAL SALINE 1000 ML 1,000 ML IV PRN (12:52)
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
[2020-02-10] MEDS ORDERED: ONDANSETRON HCL INJ/PF 4 MG/2 ML SDV IV PRN (15:00)
[2020-02-10 16:35] LABS: ANION GAP 9 (5-19); BLOOD UREA NITROGEN 24 mg/dL (7-20); CALCIUM 8.7 mg/dL (8.4-10.2); CARBON DIOXIDE 19 mmol/L (22-30); CHLORIDE 91 mmol/L (98-107); GLUCOSE 126 mg/dL (75-110); POTASSIUM 5.1 mmol/L (3.6-5.0)
[2020-02-10] MEDS ORDERED: PATIROMER 8.4 GM SUSP PACKET PO SCH (17:00)
--- NOTE | 2020-02-10 17:09 | PDOC PROGRESS REPORT ---
Subjective Progress Note for:: 02/09/19 Subjective:: 69 year old male with history of hepatocellular carcinoma with ascites came to the emergency room after a fall. He has paracentesis was done yesterday 8.5 L of fluid is remote. Around 5 PM yesterday he fell and passed out. Woke up around 8 PM. Came to the emergency room today for further evaluation. Smoker ex-alcoholic. He is a . He is not sure if he is exposed to agent orange. Was to be DNR/DNI agreed to stay in the hospital for further managemen t. 02/09/[id number]-smqc-old male admitted with falls and hyponatremia. On admission serum sodium is 117 latest serum sodium is 119. Patient is asymptomatic. Walking in the hallway. Expressing desire to go home tomorrow. As per the patient is getting palliative care services from [facility] and also has aid coming to the house. Reason For Visit: HYPONATREMIA Physical Exam Vital Signs: Temp Pulse Resp BP Pulse Ox 98.2 F 57 L 14 111/56 L 100 02/10/20 10:00 02/10/20 04:34 02/10/20 04:34 02/10/20 04:34 02/10/20 04:34 Intake & Output 02/09/20 02/10/20 02/11/20 06:59 06:59 06:59 Intake Total 2000 1000 Output Total 550 Balance 1450 1000 Weight 66.5 kg General appearance: PRESENT: no acute distress, cooperative, disheveled, thin Head exam: PRESENT: atraumatic Eye exam: PRESENT: PERRLA Mouth exam: PRESENT: moist, tongue midline Teeth exam: PRESENT: poor dentation Neck exam: ABSENT: carotid bruit, JVD, lymphadenopathy, thyromegaly Respiratory exam: PRESENT: decreased breath sounds Cardiovascular exam: PRESENT: RRR. ABSENT: diastolic murmur, rubs, systolic m urmur GI/Abdominal exam: PRESENT: ascites, normal bowel sounds. ABSENT: tenderness Rectal exam: PRESENT: deferred Extremities exam: PRESENT: full ROM. ABSENT: calf tenderness, clubbing, pedal edema Neurological exam: PRESENT: alert, awake, oriented to person, oriented to place, oriented to time, oriented to situation, CN II-XII grossly intact. ABSENT: motor sensory deficit Psychiatric exam: PRESENT: appropriate affect, normal mood. ABSENT: homicidal ideation, suicidal ideation Results Laboratory Results: 02/10/20 06:27 02/10/20 15:45 02/10/20 02/10/20 02/10/20 01:15 06:27 06:27 WBC 3.7 L RBC 3.02 L Hgb 10.7 L Hct 29.9 L MCV 99 H MCH 35.4 H MCHC 35.9 RDW 14.0 Plt Count 83 L Seg Neutrophils % 72.6 Sodium 120.8 L* Potassium 4.8 Chloride 93 L Carbon Dioxide 21 L Anion Gap 7 BUN 21 H Creatinine 0.87 Est GFR ( Amer) > 60 Glucose 87 Calcium 8.2 L Total Bilirubin 5.7 H AST 62 H Alkaline Phosphatase 64 Total Protein 5.7 L Albumin 2.6 L Triglycerides 32 Cholesterol 84.88 LDL Cholesterol Direct 37 VLDL Cholesterol 6.0 L HDL Cholesterol 30 L Lipase 214.6 Urine Color JOO Urine Appearance CLEAR Urine pH 5.0 Ur Specific [place] 1.021 Urine Protein NEGATIVE Urine Glucose (UA) NEGATIVE Urine Ketones NEGATIVE Urine Blood NEGATIVE Urine Nitrite NEGATIVE Ur Leukocyte Esterase NEGATIVE Urine WBC (Auto) 1 Urine RBC (Auto) 1 02/10/20 02/10/20 10:40 15:45 WBC RBC Hgb Hct MCV MCH MCHC RDW Plt Count Seg Neutrophils % Sodium 121.0 L 119.3 L* Potassium 4.6 5.1 H Chloride 92 L 91 L Carbon Dioxide 18 L 19 L Anion Gap 11 9 BUN 22 H 24 H Creatinine 0.93 0.95 Est GFR ( Amer) > 60 > 60 Glucose 121 H 126 H Calcium 8.5 8.7 Total Bilirubin 6.9 H AST 72 H Alkaline Phosphatase 75 Total Protein 6.6 Albumin 3.2 L Triglycerides Cholesterol LDL Cholesterol Direct VLDL Cholesterol HDL Cholesterol Lipase Urine Color Urine Appearance Urine pH Ur Specific [place] Urine Protein Urine Glucose (UA) Urine Ketones Urine Blood Urine Nitrite Ur Leukocyte Esterase Urine WBC (Auto) Urine RBC (Auto) 02/09/20 02/09/20 02/10/20 11:55 11:55 06:27 Creatine Kinase 70 57 Troponin I 0.012 Impressions: Foot X-Ray 02/09/20 11:49 IMPRESSION: NEGATIVE STUDY OF THE LEFT FOOT. NO RADIOGRAPHIC EVIDENCE OF ACUTE INJURY. Head CT 02/09/20 11:49 IMPRESSION: NORMAL BRAIN CT WITHOUT CONTRAST. EVIDENCE OF ACUTE STROKE: NO. Knee X-Ray 02/09/20 11:49 IMPRESSION: Prior total arthroplasty. Moderate joint effusion with suprapatellar soft tissue edema. Assessment and Plan - Diagnosis (1) Fall Is this a current diagnosis for this admission?: Yes Plan: 02/09/[id number]-ihhg-old male with history of hepatocellular carcinoma had a paracentesis done yesterday 8.5 L of fluid is removed went home and passed out. He passed out around 5 PM woke up around 8 PM. Decided to came to the emergency room for further evaluation. Work-up negative for fractures. PT consult will be requested occupational therapy consult was requested. 02/10/2020-patient admitted with history of recurrent falls physical therapy consult was requested. Patient wants to go home tomorrow and follow-up with the [facility] for outpatient physical therapy. (2) Hyponatremia Is this a current diagnosis for this admission?: Yes Plan: 02/09/2020-patient came in with hyponatremia serum sodium 117. Serum sodium is 126, 3 months ago. To give a normal saline 250/h water. 4 hours and to recheck serum sodium. Most likely secondary to hepatocellular carcinoma. Patient alert awake oriented. 02/10/2020-latest serum sodium is 119. Asymptomatic. Plan is to closely monitor the labs on daily basis. (3) Hepatocellular carcinoma Is this a current diagnosis for this admission?: No Plan: 02/09/2020-patient has history of hepatocellular carcinoma. Not on treatment at this time. Went for paracentesis today 8.5 L of fluid is removed. Patient will be DNR/DNI. 02/10/2020-patient has history of hepatocellular carcinoma. Getting paracentesis on regular basis as an outpatient. (4) DNR (do not resuscitate) Is this a current diagnosis for this admission?: Yes - Time Anticipated Discharge Disposition: Home, Self Care Anticipated Discharge Timeframe: within 48 hours
[2020-02-11] MEDS: HEPARIN SOD (PORCINE) 5,000 UNIT/ML 1 ML VIAL SUBCUT SCH (06:34)
[2020-02-11] MEDS: PANTOPRAZOLE SODIUM 40 MG TABLET.DR PO SCH (06:40)
[2020-02-11 08:17] LABS: HEMOGLOBIN 11.2 g/dL (13.5-17.0); MEAN CORPUSCULAR HEMOGLOBIN 34.9 pg (27.0-33.4); MEAN CORPUSCULAR HGB CONC 35.1 g/dL (32.0-36.0); MEAN CORPUSCULAR VOLUME 100 fl (80-97); RED BLOOD COUNT 3.21 10^6/uL (4.35-5.55); RED CELL DISTRIBUTION WIDTH 14.4 % (11.5-14.0)
[2020-02-11 08:30] LABS: URINE SODIUM < 5 mmol/L (30-90)
[2020-02-11 08:42] LABS: OSMOLALITY,URINE 670 mOsm/kg (300-900)
[2020-02-11 08:44] LABS: ALBUMIN 3.1 g/dL (3.5-5.0); ALKALINE PHOSPHATASE 77 U/L (38-126); ANION GAP 9 (5-19); ASPARTATE AMINO TRANSFERASE 65 U/L (17-59); BILIRUBIN,TOTAL 5.8 mg/dL (0.2-1.3); BLOOD UREA NITROGEN 23 mg/dL (7-20); CALCIUM 8.7 mg/dL (8.4-10.2); CARBON DIOXIDE 20 mmol/L (22-30); CHLORIDE 92 mmol/L (98-107); GLUCOSE 93 mg/dL (75-110); POTASSIUM 5.3 mmol/L (3.6-5.0); TOTAL PROTEIN 6.5 g/dL (6.3-8.2)
[2020-02-11 08:51] LABS: WHITE BLOOD COUNT 8.5 10^3/uL (4.0-10.5)
[2020-02-11 08:52] LABS: ABSOLUTE LYMPHOCYTES# (MANUAL) 0.3 10^3/uL (0.5-4.7); ABSOLUTE MONOCYTES # (MANUAL) 1.2 10^3/uL (0.1-1.4); BASOPHILS % (MANUAL) 0 % (0-2); EOSINOPHILS % (MANUAL) 0 % (0-6); LYMPHOCYTES % (MANUAL) 3 % (13-45); MONOCYTES % (MANUAL) 14 % (3-13); PLATELET COUNT 98 10^3/uL (150-450); POIKILOCYTOSIS SLIGHT; SCHISTOCYTES SLIGHT; SEGMENTED NEUTROPHILS % (MAN) 83 % (42-78); TOTAL CELLS COUNTED 100
[2020-02-11 08:53] LABS: PLATELET COMMENT DECREASED; TOXIC GRANULATION SLIGHT
[2020-02-11] MEDS ORDERED: FUROSEMIDE 20 MG TABLET PO SCH (10:00)
[2020-02-11] MEDS: POLYETHYLENE GLYCOL 3350 POWDER 17 GM/1 PACKET PO SCH (10:11)
[2020-02-11] MEDS: SENNOSIDES/DOCUSATE 8.6-50 MG 1 EACH TABLET PO SCH (10:12)
[2020-02-11] MEDS: LACTULOSE SYRUP 20 GM/30 ML UDCUP PO SCH (10:12)
[2020-02-11 10:54] VITALS: BP 126/62
--- NOTE | 2020-02-11 12:49 | Left Against Medical Advice ---
Against Medical Advice Admission Date/Time: 02/09/20 15:09 Primary Care Provider: JADE GUTIERREZ DO Date of Patient Emigration: 02/11/20 - Diagnosis: (1) Fall Is this a current diagnosis for this admission?: Yes (2) Hyponatremia Is this a current diagnosis for this admission?: Yes (3) Hepatocellular carcinoma Is this a current diagnosis for this admission?: No (4) DNR (do not resuscitate) Is this a current diagnosis for this admission?: Yes - Summary: Summary: Please see Admission and Progress Notes as well. BOUCHRA COUGHLIN is a 69 M, who LEFT AGAINST MEDICAL ADVICE. The Patient was admitted on 02/09/20 15:09. 69-year-old male with hepatocellular carcinoma and ascites came to the emergency room after passing out. 1 day prior he went for paracentesis and 8.4 L of fluid is removed. Patient was admitted with hyponatremia of 117 and a nephrology is consulted. Today's labs is indicate sodium of 120. Patient is expressing desire to go home today. Explained to him in detail that hyponatremia is a very high risk for falls and he actually came in with complaints of recurrent falls and passing out he understood my concerns but he wants to go home and take his medications as required. Explained to the patient my goal is to bring the sodium up to 125 prior to discharge. Patient understood my concerns but wants to go home and signed AMA.
== END 2020-02-11 13:16 | disposition left against medical advice (07) | DRG 641 ==
LOC: ER 10:41 → EH 15:09 → 5 17:53
PROVIDERS: ADMIT Internal Medicine; ATTEND Internal Medicine
DX: E87.1 Hypo-osmolality and hyponatremia (principal); C22.0 Liver cell carcinoma; R18.8 Other ascites; S80.02XA Contusion of left knee, initial encounter; S90.32XA Contusion of left foot, initial encounter; Z66 Do not resuscitate; R55 Syncope and collapse; M25.462 Effusion, left knee; W19.XXXA Unspecified fall, initial encounter; Y92.009 Unspecified place in unspecified non-institutional (private) residence as the place of occurrence of the external cause; Z96.652 Presence of left artificial knee joint; Z87.891 Personal history of nicotine dependence; Z82.49 Family history of ischemic heart disease and other diseases of the circulatory system
CPT/HCPCS: 36415; 70450; 80053; 80061; 81001; 82533; 82550; 83690; 83735; 83930; 83935; 84300; 84484; 85025; 85610; 87070; 93005; 93010; 96374; 99291; J1644; J2270; J2405; J3490; J7030

== ENCOUNTER 2020-02-22 07:45 | Day surgery (SDC) | payer MEDICARE, OTHER ==
[2020-02-22 08:50] LABS: HEMATOCRIT 33.8 % (37.9-51.0); HEMOGLOBIN 12.1 g/dL (13.5-17.0); MEAN CORPUSCULAR HEMOGLOBIN 35.4 pg (27.0-33.4); MEAN CORPUSCULAR VOLUME 98 fl (80-97); RED BLOOD COUNT 3.43 10^6/uL (4.35-5.55); RED CELL DISTRIBUTION WIDTH 14.6 % (11.5-14.0); WHITE BLOOD COUNT 4.2 10^3/uL (4.0-10.5)
[2020-02-22 08:52] LABS: INTERNATIONAL RATION (INR) 1.31; PARTIAL THROMBOPLASTIN TIME 40.3 SEC (23.5-35.8); PROTHROMBIN TIME 16.5 SEC (11.4-15.4)
[2020-02-22 09:08] LABS: PLATELET COUNT 120 10^3/uL (150-450)
[2020-02-22 09:13] LABS: BLOOD UREA NITROGEN 19 mg/dL (7-20)
--- NOTE | 2020-02-22 12:28 | RADIOLOGY REPORT (SQ) ---
EXAM DESCRIPTION: U/S ABD PARACENTESIS IMAGES COMPLETED DATE/TIME: 02/22/2020 12:06 pm REASON FOR STUDY: ASCITES COMPARISON None. LIMITATIONS: None. PROCEDURE: After obtaining informed consent, the patient was brought to the ultrasound suite. The p rocedure was performed with the patient on a gurney. Ultrasound was used to identify a prominent poc ket of ascites in the right lower quadrant. An appropriate access site was selected. The patient wa s prepped and draped in usual sterile fashion. The access site was anesthetized with 6 mL 1% lidoca ine. A Tens-F-Drnoyzyp needle was advanced into the fluid. After aspiration of fluid the needle, th e catheter was advanced off the needle into the fluid. A total of 5,000 mL of straw-colored fluid wa s removed. The patient tolerated the procedure well left the department in satisfactory condition. IMPRESSION: Successful ultrasound-guided paracentesis COMMENT: Patient medication list reviewed: Yes- Quality ID# [id number]:Eligible professional attests to doc umenting in the medical record they obtained, updated, or reviewed the patient's current medications. TECHNICAL DOCUMENTATION: JOB ID: [id number] 2010 [employer]- All Rights Reserved Reading location - IP/workstation name: [id number]
[2020-02-22 13:15] VITALS: BP 130/44
== END 2020-02-22 12:17 | disposition home or self-care (01) ==
LOC: RAD 07:45
PROVIDERS: ATTEND Internal Medicine Gastroenterology
DX: C22.0 Liver cell carcinoma (principal); K74.60 Unspecified cirrhosis of liver; R18.8 Other ascites
CPT/HCPCS: 36415; 49083; 82565; 84520; 85027; 85610; 85730; 96365

== ENCOUNTER 2020-02-24 19:51 | Observation (INO) | payer OTHER, MEDICARE ==
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
--- NOTE | 2020-02-24 22:08 | RADIOLOGY REPORT (SQ) ---
XR CHEST 1 VIEW CLINICAL STATEMENT: sob, liver ca COMPARISON: 12/14/2019 FINDINGS: Heart is mildly enlarged. There is no focal lung consolidation or pleural effusion. No evidence of pulmonary edema or pneumothorax. IMPRESSION: No acute cardiopulmonary disease.
[2020-02-24 22:33] LABS: ABSOLUTE EOSINOPHILS # (AUTO) 0.1 10^3/uL (0.0-0.6); ABSOLUTE LYMPHOCYTES (AUTO) 0.3 10^3/uL (0.5-4.7); ABSOLUTE MONOCYTES (AUTO) 0.6 10^3/uL (0.1-1.4); ABSOLUTE NEUT (AUTO) 2.5 10^3/uL (1.7-8.2); BASOPHILS % (AUTO) 1.1 % (0-2); EOSINOPHILS % (AUTO) 1.5 % (0-6); HEMATOCRIT 34.5 % (37.9-51.0); HEMOGLOBIN 12.1 g/dL (13.5-17.0); LYMPHOCYTES % (AUTO) 8.4 % (13-45); MEAN CORPUSCULAR HEMOGLOBIN 34.4 pg (27.0-33.4); MEAN CORPUSCULAR VOLUME 98 fl (80-97); MONOCYTES % (AUTO) 17.3 % (3-13); RED BLOOD COUNT 3.51 10^6/uL (4.35-5.55); RED CELL DISTRIBUTION WIDTH 14.6 % (11.5-14.0); SEGMENTED NEUTROPHILS % (AUTO) 71.7 % (42-78); TOTAL CELLS COUNTED % (AUTO) 100 %; WHITE BLOOD COUNT 3.4 10^3/uL (4.0-10.5)
[2020-02-24 22:34] LABS: PROTHROMBIN TIME 17.3 SEC (11.4-15.4)
[2020-02-24 22:46] LABS: ALBUMIN 3.3 g/dL (3.5-5.0); ALKALINE PHOSPHATASE 108 U/L (38-126); ANION GAP 9 (5-19); ASPARTATE AMINO TRANSFERASE 91 U/L (17-59); BILIRUBIN,DIRECT 1.4 mg/dL (0.0-0.4); BLOOD UREA NITROGEN 20 mg/dL (7-20); CALCIUM 8.8 mg/dL (8.4-10.2); CARBON DIOXIDE 23 mmol/L (22-30); CHLORIDE 83 mmol/L (98-107); GLUCOSE 110 mg/dL (75-110); POTASSIUM 5.4 mmol/L (3.6-5.0); TOTAL PROTEIN 6.9 g/dL (6.3-8.2)
[2020-02-24 22:59] LABS: PLATELET COUNT 117 10^3/uL (150-450)
[2020-02-24] MEDS ORDERED: NORMAL SALINE 1000 ML 1,000 ML IV PRN (23:47)
[2020-02-24] MEDS ORDERED: LACTULOSE SYRUP 20 GM/30 ML UDCUP PO ONE (23:48)
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
[2020-02-25] MEDS ORDERED: MAG HYDROX/AL HYDROX/SIMETH SUSP 30 ML UDCUP PO PRN (01:39)
[2020-02-25] MEDS ORDERED: PROMETHAZINE HCL INJ 25 MG/1 ML VIAL IV PRN (01:39)
[2020-02-25] MEDS ORDERED: MORPHINE SULFATE 10 MG/ML INJ IV PRN (01:48)
[2020-02-25] MEDS ORDERED: LACTULOSE SYRUP 20 GM/30 ML UDCUP PO ONE (03:15)
[2020-02-25 03:48] LABS: APPEARANCE,URINE CLEAR; BILIRUBIN,URINE NEGATIVE (NEGATIVE); COLOR,URINE AMBER; GLUCOSE, URINE NEGATIVE (NEGATIVE); KETONES,URINE NEGATIVE (NEGATIVE); LEUKOCYTE ESTERASE,URINE NEGATIVE (NEGATIVE); NITRITE,URINE NEGATIVE (NEGATIVE); PROTEIN,URINE NEGATIVE (NEGATIVE); URINE SPECIFIC GRAVITY 1.019
[2020-02-25] MEDS ORDERED: LACTULOSE SYRUP 20 GM/30 ML UDCUP PO SCH ×2 (06:00→14:00)
[2020-02-25] MEDS ORDERED: PANTOPRAZOLE SODIUM 20 MG TABLET.DR PO SCH (06:00)
[2020-02-25 06:11] LABS: ABSOLUTE LYMPHOCYTES (AUTO) 0.2 10^3/uL (0.5-4.7); ABSOLUTE MONOCYTES (AUTO) 0.6 10^3/uL (0.1-1.4); ABSOLUTE NEUT (AUTO) 2.1 10^3/uL (1.7-8.2); BASOPHILS % (AUTO) 0.8 % (0-2); EOSINOPHILS % (AUTO) 1.1 % (0-6); HEMATOCRIT 33.4 % (37.9-51.0); LYMPHOCYTES % (AUTO) 7.3 % (13-45); MEAN CORPUSCULAR VOLUME 97 fl (80-97); MONOCYTES % (AUTO) 19.3 % (3-13); PLATELET COUNT 102 10^3/uL (150-450); RED BLOOD COUNT 3.43 10^6/uL (4.35-5.55); RED CELL DISTRIBUTION WIDTH 14.7 % (11.5-14.0); SEGMENTED NEUTROPHILS % (AUTO) 71.5 % (42-78); TOTAL CELLS COUNTED % (AUTO) 100 %; WHITE BLOOD COUNT 2.9 10^3/uL (4.0-10.5)
[2020-02-25 06:30] LABS: ALBUMIN 2.9 g/dL (3.5-5.0); ALKALINE PHOSPHATASE 94 U/L (38-126); ANION GAP 7 (5-19); ASPARTATE AMINO TRANSFERASE 89 U/L (17-59); BILIRUBIN,DIRECT 1.3 mg/dL (0.0-0.4); BILIRUBIN,TOTAL 3.9 mg/dL (0.2-1.3); BLOOD UREA NITROGEN 22 mg/dL (7-20); CALCIUM 8.7 mg/dL (8.4-10.2); CARBON DIOXIDE 24 mmol/L (22-30); CHLORIDE 85 mmol/L (98-107); GLUCOSE 105 mg/dL (75-110); POTASSIUM 5.3 mmol/L (3.6-5.0); TOTAL PROTEIN 6.2 g/dL (6.3-8.2)
[2020-02-25] MEDS ORDERED: FUROSEMIDE INJ/PF 20 MG/2 ML SDV IV ONE (09:30)
[2020-02-25] MEDS ORDERED: DOCUSATE SODIUM 100 MG CAPSULE PO SCH (10:00)
[2020-02-25] MEDS ORDERED: ENOXAPARIN SODIUM INJ 40 MG/0.4 ML DISP.SYRIN SUBCUT SCH (10:00)
[2020-02-25] MEDS ORDERED: CYANOCOBALAMIN (VITAMIN B-12) 1,000 MCG TABLET PO SCH (10:00)
[2020-02-25 16:29] VITALS: BP 123/77
--- NOTE | 2020-02-25 18:55 | PDOC DISCHARGE SUMMARY ---
Impression - Admit/DC Date/PCP Admission Date/Primary Care Provider: 02/25/20 00:15 JADE GUTIERREZ DO Discharge Date: 02/25/20 - Discharge Diagnosis (1) Ascites Is this a current diagnosis for this admission?: Yes (2) Elevated transaminase level Is this a current diagnosis for this admission?: Yes (3) Hepatocellular carcinoma Is this a current diagnosis for this admission?: Yes (4) Hyperkalemia Is this a current diagnosis for this admission?: Yes (5) Increased ammonia level Is this a current diagnosis for this admission?: Yes - Assessment Summary: BOUCHRA COUGHLIN is a 69 year old male who is a hospice patient with a history of hepatocellular carcinoma. He historically requires weekly paracenteses, typically removing 5L on average. Patient states that he had a voicemail from [employer] telling him to seek emergent attention secondary to abnormal lab readings, thus he reported to the ED. In the ED he was found to have a sodium of 115. Further lab abnormalities noted including an elevated potassium, transaminases, bilirubin, ammonia, and INR. Pt's labs were reviewed showing his baseline sodium to be 120-125. All other labs were found to be at his baseline. Patient was admitted on observation status. He was treated with lactulose for elevated ammonia. Increased pt's home dose ammonia. Patient is cleared for discharge for home. Of note: The hospital was contacted by pt's home Hospice team. Hopsice team expressed concerns regarding patient's live alone status, stating that they feel it is necessary he move to inpatient hospice. I discussed this with the patient, he stated that he is not interested in inpatient hospice at this time, though he would like to continue with outpatient home hospice services. He does live alone but he has neighbors who buy him food, provide him transportation and give him companionship. Pt is firm in that he is not interested in inpatient hospice service at this time. - Additional Information Resuscitation Status: Do Not Resuscitate Discharge Diet: As Tolerated Discharge Activity: Activity As Tolerated Referrals: JADE GUTIERREZ DO [Primary Care Provider] - Follow up as needed Prescriptions: Lactulose 10 gm PO BID #30 packet Home Medications: Furosemide [Lasix 20 mg Tablet] 20 mg PO DAILY 07/15/19 Pantoprazole Sodium [Protonix [address] Packet] 40 mg PO BID@0600,1700 01/11/20 Lactose-Reduced Food [Ensure Plus] 237 ml PO TID 02/09/20 Oxycodone HCl [Oxy-Ir 5 mg Tablet] 10 mg PO Q4HP PRN 02/09/20 Spironolactone [Aldactone 25 mg Tablet] 1 tab PO DAILY 02/22/20 Lactulose 10 gm PO BID #30 packet 02/25/20 Polyethylene Glycol 3350 [Miralax Powder 17 gm/Packet] 1 packet PO DAILY 02/25/20 Sennosides/Docusate 8.6-50 mg [Senna Plus Tablet] 2 tab PO DAILY 02/25/20 History of Present Illiness History of Present Illness: BOUCHRA COUGHLIN is a 69 year old male Physical Exam Vital Signs: Temp Pulse Resp BP Pulse Ox 97.4 F 118 H 12 114/86 H 100 02/25/20 15:16 02/25/20 15:16 02/25/20 15:16 02/25/20 15:16 02/25/20 15:16 Intake & Output 02/24/20 02/25/20 02/26/20 06:59 06:59 06:59 Intake Total 765 Balance 765 Weight 70 kg General appearance: PRESENT: no acute distress, cooperative, thin Head exam: PRESENT: atraumatic, normocephalic Eye exam: PRESENT: conjunctiva pink, EOMI, PERRLA Mouth exam: PRESENT: dry mucosa, tongue midline Neck exam: PRESENT: full ROM. ABSENT: JVD, lymphadenopathy, tenderness, thyromegaly Respiratory exam: PRESENT: clear to auscultation dolores, symmetrical, unlabored Cardiovascular exam: PRESENT: RRR, +S1, +S2. ABSENT: diastolic murmur, systolic murmur Pulses: PRESENT: normal radial pulses GI/Abdominal exam: PRESENT: ascites, diminished bowel sounds, distended, tenderness Extremities exam: PRESENT: full ROM, other - 3+ edema bilateral lower extremities Neurological exam: PRESENT: alert, awake, oriented to person, oriented to place, oriented to time, oriented to situation, CN II-XII grossly intact. ABSENT: altered Psychiatric exam: PRESENT: flat affect Skin exam: PRESENT: dry, intact, warm Results Laboratory Results: WBC 2.9 10^3/uL (4.0-10.5) L 02/25/20 05:41 RBC 3.43 10^6/uL (4.35-5.55) L 02/25/20 05:41 Hgb 12.0 g/dL (13.5-17.0) L 02/25/20 05:41 Hct 33.4 % (37.9-51.0) L 02/25/20 05:41 MCV 97 fl (80-97) 02/25/20 05:41 MCH 35.0 pg (27.0-33.4) H 02/25/20 05:41 MCHC 36.0 g/dL (32.0-36.0) 02/25/20 05:41 RDW 14.7 % (11.5-14.0) H 02/25/20 05:41 Plt Count 102 10^3/uL (150-450) L 02/25/20 05:41 Lymph % (Auto) 7.3 % (13-45) L 02/25/20 05:41 [place] % (Auto) 19.3 % (3-13) H 02/25/20 05:41 Eos % (Auto) 1.1 % (0-6) 02/25/20 05:41 Baso % (Auto) 0.8 % (0-2) 02/25/20 05:41 Absolute Neuts (auto) 2.1 10^3/uL (1.7-8.2) 02/25/20 05:41 Absolute Lymphs (auto) 0.2 10^3/uL (0.5-4.7) L 02/25/20 05:41 Absolute Monos (auto) 0.6 10^3/uL (0.1-1.4) 02/25/20 05:41 Absolute Eos (auto) 0.0 10^3/uL (0.0-0.6) 02/25/20 05:41 Absolute Basos (auto) 0.0 10^3/uL (0.0-0.2) 02/25/20 05:41 Seg Neutrophils % 71.5 % (42-78) 02/25/20 05:41 PT 17.3 SEC (11.4-15.4) H 02/24/20 22:14 INR 1.40 02/24/20 22:14 Sodium 115.5 mmol/L (137-145) L* 02/25/20 05:41 Potassium 5.3 mmol/L (3.6-5.0) H 02/25/20 05:41 Chloride 85 mmol/L (98-107) L 02/25/20 05:41 Carbon Dioxide 24 mmol/L (22-30) 02/25/20 05:41 Anion Gap 7 (5-19) 02/25/20 05:41 BUN 22 mg/dL (7-20) H 02/25/20 05:41 Creatinine 1.00 mg/dL (0.52-1.25) 02/25/20 05:41 Est GFR ( Amer) > 60 (>60) 02/25/20 05:41 Est GFR (MDRD) Non-Af > 60 (>60) 02/25/20 05:41 Glucose 105 mg/dL (75-110) 02/25/20 05:41 Calcium 8.7 mg/dL (8.4-10.2) 02/25/20 05:41 Magnesium 2.2 mg/dL (1.6-2.3) 02/25/20 05:41 Total Bilirubin 3.9 mg/dL (0.2-1.3) H 02/25/20 05:41 Direct Bilirubin 1.3 mg/dL (0.0-0.4) H 02/25/20 05:41 Neonat Total Bilirubin Not Reportable 02/25/20 05:41 Neonat Direct Bilirubin Not Reportable 02/25/20 05:41 Neonat Indirect Bili Not Reportable 02/25/20 05:41 AST 89 U/L (17-59) H 02/25/20 05:41 ALT 54 U/L (<50) H 02/25/20 05:41 Alkaline Phosphatase 94 U/L (38-126) 02/25/20 05:41 Ammonia 55.9 umol/L (9-33) H 02/25/20 05:41 Total Protein 6.2 g/dL (6.3-8.2) L 02/25/20 05:41 Albumin 2.9 g/dL (3.5-5.0) L 02/25/20 05:41 Urine Color JOO 02/25/20 03:19 Urine Appearance CLEAR 02/25/20 03:19 Urine pH 5.0 (5.0-9.0) 02/25/20 03:19 Ur Specific Fate 1.019 02/25/20 03:19 Urine Protein NEGATIVE mg/dL (NEGATIVE) 02/25/20 03:19 Urine Glucose (UA) NEGATIVE mg/dL (NEGATIVE) 02/25/20 03:19 Urine Ketones NEGATIVE mg/dL (NEGATIVE) 02/25/20 03:19 Urine Blood NEGATIVE (NEGATIVE) 02/25/20 03:19 Urine Nitrite NEGATIVE (NEGATIVE) 02/25/20 03:19 Urine Bilirubin NEGATIVE (NEGATIVE) 02/25/20 03:19 Urine Urobilinogen 4.0 mg/dL (<2.0) H 02/25/20 03:19 Ur Leukocyte Esterase NEGATIVE (NEGATIVE) 02/25/20 03:19 Urine WBC (Auto) 0 /HPF 02/25/20 03:19 Urine RBC (Auto) 0 /HPF 02/25/20 03:19 U Hyaline Cast (Auto) 11 /LPF 02/25/20 03:19 Squamous Epi Cells Auto <1 /HPF 02/25/20 03:19 Urine Mucus (Auto) RARE /LPF 02/25/20 03:19 Urine Ascorbic Acid 40 (NEGATIVE) H 02/25/20 03:19 Impressions: Chest X-Ray 02/24/20 21:03 IMPRESSION: No acute cardiopulmonary disease. Plan Time Spent: Greater than 30 Minutes Stroke Is this a Stroke Patient?: No Acute Heart Failure Is this a Heart Failure Patient?: No
[2020-02-25] MEDS ORDERED: MELATONIN 5 MG TABLET PO SCH (22:00)
--- NOTE | 2020-02-26 00:48 | EKG REPORT ---
SEVERITY:- OTHERWISE NORMAL ECG - SINUS RHYTHM LOW VOLTAGE IN FRONTAL LEADS : Confirmed by: Cindy Mendoza MD 26-Feb-2020 00:48:21
== END 2020-02-25 17:40 | disposition hospice, home (50) ==
LOC: ER 19:51 → INTOOBSV 02-25 00:15 → EH 02-25 00:15 → 4W 02-25 09:15
PROVIDERS: ADMIT Hospitalist; ATTEND Hospitalist
DX: C22.0 Liver cell carcinoma (principal); R18.0 Malignant ascites; E87.5 Hyperkalemia; E87.1 Hypo-osmolality and hyponatremia; R74.01 Elevation of levels of liver transaminase levels; E72.20 Disorder of urea cycle metabolism, unspecified; R53.1 Weakness; Z79.899 Other long term (current) drug therapy; I10 Essential (primary) hypertension; J44.9 Chronic obstructive pulmonary disease, unspecified; Z87.891 Personal history of nicotine dependence
CPT/HCPCS: 93005; 99285; 36415 ×2; 82140 ×2; 83735; 85025 ×2; 85610; 80053 ×2; 81001; 71045; 93010; G0378; J1940; J2270; J2550; J3490 ×2; J7030